=== PATIENT | male | born 1995 | race Caucasian/White ===

== ENCOUNTER 2020-08-22 02:12 | Emergency (ER) | payer SELFPAY ==
--- NOTE | 2020-08-22 02:18 | ECG_ITS ---
Test Reason : CHEST PAIN Blood Pressure : / mmHG Vent. Rate : 096 BPM Atrial Rate : 096 BPM P-R Int : 150 ms QRS Dur : 094 ms QT Int : 326 ms P-R-T Axes : 066 036 031 degrees QTc Int : 411 ms Normal sinus rhythm Early repolarization Normal ECG No previous ECGs available Referred By: Christiano Ashley Electronically Signed By:RIMA MONET MD
--- NOTE | 2020-08-22 02:40 | PC.NURSE ---
PATIENT RECEIVED EKG, PATIENT TAKING PICTURES OF STAFF AND HIMSELF DURING THE TEST ASK TO DELETE THE PHOTO. PATIENT STATED HE DID. SECURITY MADE AWARE WELL. VERBALIZED MULTIPLE TIMES TO PATIENT ABOUT PICTURES. PATIENT VERBALIZED UNDERSTANDING.
--- NOTE | 2020-08-22 02:59 | PC.NURSE ---
PATIENT CALLED FOR ROOM ASSIGNMENT. REFUSING TO BE SEEN I DON'T WANT TO WAIT ANY LONGER. SITTING OUTSIDE WAITING FOR HIS RIDE. OFFERED A ROOM ASSIGNMENT MULTIPLE TIMES. PATIENT NOT INTERESTED IN BEING DIRECTLY TAKEN TO A BED.
--- NOTE | 2020-08-23 03:18 | ED.CHESTPAIN ---
HPI - Chest Pain General Chief Complaint: Chest Pain Stated Complaint: Chest tightness PMFSH Social History Social History Advance Directives: No Course Course Course Narrative: This patient was not seen nor evaluated by me. Discharge Plan Discharge Patient Disposition: Left Without Being Seen Discharge Date/Time: 08/22/20 02:55
== END 2020-08-22 02:55 | disposition left against medical advice (07) ==
PROVIDERS: Emergency Provider Emergency Medicine
DX: R07.9 Chest pain, unspecified (principal)
CPT/HCPCS: 93005; 99281; 99283

== ENCOUNTER 2022-05-03 08:59 | Emergency (ER) | payer MEDICAID, SELFPAY ==
--- NOTE | ~2022-05-03 | XR_ITS ---
EXAMINATION: XR LUMBOSACRAL SPINE CLINICAL INFORMATION: Low back pain after lifting heavy object COMPARISON: None TECHNIQUE: Three views of the lumbosacral spine. FINDINGS: The vertebral bodies and posterior elements are normal. The disc spaces are preserved and the vertebral alignment is normal. The paraspinal soft tissues are normal. XR/XR lumbar spine 2-3V IMPRESSION: Unremarkable examination.
[2022-05-03 09:30] VITALS: BP 119/63; PULSE 70; RESP 16; TEMP 36.5; O2SAT 99; BMI 25.2
--- NOTE | 2022-05-03 10:33 | ED.BACK ---
HPI - Back Pain/Injury General Chief Complaint: Back Pain/Injury Stated Complaint: Back pain Time Seen by Provider: 05/03/22 09:36 Source: patient Mode of arrival: ambulatory Limitations: language barrier (Gabonese-speaking) History of Present Illness MD elicited complaint: back pain and back injury Onset (ago): day(s) (Past few days worse today) Timing: constant and progressively worsening Severity: mild Quality: aching Location: lumbar spine Radiation: none Exacerbating factors: sitting upright, lifting and other (Bending over) Relieving factors: none Context: while lifting, turning/twisting, bending and other (Patient reports he lives on the 4th 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 and he is always heavy lifting due to multiple stairs and just had a birthday green party of hers daughter and was heavy lifting as well at that green party) Associated symptoms: denies other symptoms Work related injury: No Related Data Previous Rx's Medication Instructions Recorded cyclobenzaprine 10 mg tablet 10 mg PO Q8H PRN Muscle spasm #14 05/03/22 tabs naproxen 500 mg tablet 500 mg PO BID PRN pain #14 tabs 05/03/22 Allergies Allergy/AdvReac Type Severity Reaction Status Date / Time No Known Allergies Allergy Verified 05/03/22 09:29 Review of Systems Review of Systems: Constitutional : No trauma, No Weight loss, No Fever, No Chills, ENT/Mouth : No Hearing loss, No Ear Pain, No Nasal Congestion, No Sinus Pain, No Hoarseness, No sore throat, No Rhinorrhea, No Swallowing Difficulty Cardiovascular : No Chest Pain, No SOB Respiratory : No Cough, No Dyspnea Gastrointestinal : No Nausea, No Vomiting, No Diarrhea, No abdominal Pain, No Hematochezia, No Melena Genitourinary : No Dysuria, No Urinary Frequency, No Hematuria, No Urinary or Bowel Incontinence/retention Musculoskeletal : + Back pain, No neck pain, No joint stiffness, No joint swelling Skin : No Skin Lesions, No rash or signs of infection Neuro : No Weakness, No radiation, No Numbness, No Paresthesias, No headache, no loss of bowel or bladder incontinence, no saddle anesthesia Denies history of IV drug usage. Yes all other systems are reviewed and are negative PMFSH Past Medical History Attestation statement: The following information was validated with the patient. Source: old records reviewed and nursing notes reviewed Social History Social History Advance Directives: No Advance Directives Information Provided: No Physical Exam Vital Signs: Vital Signs: Last Vital Signs Temp 97.7 F 05/03/22 09:30 Pulse 70 05/03/22 09:30 Resp 16 05/03/22 09:30 BP 119/63 05/03/22 09:30 Pulse Ox 99 05/03/22 09:30 O2 Del Method 05/03/22 09:30 BMI result Body Mass Index 25.2 vital signs have been reviewed as normal and appeared to be correct. Blood pressure normal. Heart rate normal. Respiration rate normal. Temperature normal. Oxygen saturation normal. Appearance: Alert. Oriented X3. No acute distress. Head: Normal external exam. Normocephalic. Atraumatic. Eyes: PERRLA. EOMI. Conjunctiva and sclera normal. Eyelids normal. ENT: EAC normal. TM's Normal. Pharynx normal. Uvula midline. Moist mucous membranes. No trismus noted. No drooling noted. No muffled voice noted. Neck: Normal inspection. Neck supple. FROM. No adenopathy. Thyroid Normal. No meningeal signs. No neck mass noted. CVS: Normal heart rate and rhythm. Heart sound normal. No murmurs noted. Pulses normal throughout. Respiratory: No respiratory distress. Painless inspiration. Breath sounds normal. No wheezes/rales/rhonchi noted. Chest nontender. No accessory muscle usage noted or decreased air movement noted. Abdomen: Soft and nontender. Bowel sounds normal in all 4 quadrants. No distention noted. No organomegaly noted. No visible injury noted. Back: No CVA tenderness. Full range of motion noted. No obvious deformities, or edema. Mild para-spinal muscular tenderness from lumbar region to coccyx. Full ROM in back and lower extremities. 5/5 strength hip extension/flexion, abduction, adduction. Mild Lumbar pain with hip flexion against resistance. Straight leg raise test negative on right; Straight leg raise test negative on left; Reflexes normal ankle and knee bilaterally; EHL motor strength normal bilaterally. No rashes/lesion/induration/fluctuance or signs infection noted. Skin: Skin warm and dry. Normal skin color. Normal skin turgor. No rashes/lesions/lacerations noted. Extremities: No lower extremity edema. Extremities exhibit normal range of motion. Extremities nontender. Neuro: Oriented X 3. No motor deficit. No sensory deficit. Reflexes normal. Patient has a normal steady gait. Course Course Course Narrative: Pt c likely muscular pain, but could be herniated disc. Neuro exam shows no deficits. Not c/w AAA/epidural abscess/dissection.No high risk Hx (Incont, fever, immunosupp, recent surgery/LP, coag, signif trauma, wt loss, puls mass, hx/o Ca, TB, or IVDU) to warrant MRI/CT today. Not c/w Pyelo/UTI/kidney stone/spinal fx. Not cauda equina syndrome. Imaging not currently indicated although patient requesting x-ray of lumbar spine therefore will obtain x-ray if negative for any acute processes will DC c meds and f/u. Patient understands agrees with this plan. MDM - Back Pain/Injury Medical Records Attestation: I reviewed the patient's medical records. Imaging Data Lumbar spine x-ray: Attestation: I personally reviewed and interpreted this imaging study as follows: Radiologist's impression: FINDINGS: The vertebral bodies and posterior elements are normal. The disc spaces are preserved and the vertebral alignment is normal. The paraspinal soft tissues are normal. XR/XR lumbar spine 2-3V IMPRESSION: Unremarkable examination. Discharge Plan Discharge Clinical Impression: Strain of lumbar region Patient Disposition: Home, Self-Care Instructions: Low Back Strain (ED), Lower Back Exercises (ED) Prescriptions: New naproxen 500 mg tablet 500 mg PO BID PRN (Reason: pain) Qty: 14 0RF cyclobenzaprine 10 mg tablet 10 mg PO Q8H PRN (Reason: Muscle spasm) Qty: 14 0RF Referrals: Physician,Unknown J [Primary Care Provider] - 1 week (your pcp) Stand Alone Forms: Work/School Release Print Language: Gabonese
== END 2022-05-03 11:19 | disposition home or self-care (01) ==
PROVIDERS: Emergency Provider Emergency Medicine
DX: S39.012A Strain of muscle, fascia and tendon of lower back, initial encounter (principal); X50.0XXA Overexertion from strenuous movement or load, initial encounter; Y93.9 Activity, unspecified; Y92.9 Unspecified place or not applicable; Y99.9 Unspecified external cause status
CPT/HCPCS: 72100; 99283

== ENCOUNTER 2022-09-26 09:00 | Emergency (ER) | payer MEDICAID, SELFPAY ==
[2022-09-26 09:04] VITALS: BP 137/76; PULSE 91; RESP 16; TEMP 36.7; O2SAT 98; BMI 29.2
--- NOTE | 2022-09-26 09:11 | ED.GENADULT ---
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 Patient states that he would like some time off of work to rest his back. Patient denies any dizziness, lightheadedness, abdominal pain, nausea, vomiting, fever, chills, blurry vision, double vision, loss of vision, chest pain, difficulty breathing, shortness of breath, night sweats, pain with urination, increased urinary frequency, increased urinary urgency, blood in his urine or stool, syncope or a near syncopal episode, recent trauma or falls, bowel incontinence, bladder incontinence, bowel retention, bladder retention, or any other complaints at this time. Onset (ago): day(s) Location: back Radiation: non-radiation Severity: mild Severity scale (1-10): 3 Quality: dull Pain Consistency: intermittent Relieving factors: none Exacerbating factors: none Associated symptoms: denies other symptoms Treatments prior to arrival: none Related Data Previous Rx's Medication Instructions Recorded cyclobenzaprine 10 mg tablet 10 mg PO Q8H PRN Muscle spasm #14 05/03/22 tabs naproxen 500 mg tablet 500 mg PO BID PRN pain #14 tabs 05/03/22 Allergies Allergy/AdvReac Type Severity Reaction Status Date / Time No Known Allergies Allergy Verified 05/03/22 09:29 Review of Systems Constitutional: Constitutional: Reports no additional constitutional complaints, Denies chills, Denies fever(s) and Denies night sweats Eyes: Eyes: Reports no additional eye complaints, Denies blurry vision, Denies change in vision, Denies diplopia, Denies eye discharge, Denies loss of vision and Denies eye pain ENT: Denies dizziness Cardiovascular: Cardiovascular: Reports no additional cardiovascular complaints, Denies chest pain, Denies lightheadedness, Denies Loss of Consciousness and Denies dyspnea Respiratory: Respiratory: Reports no additional respiratory complaints and Denies dyspnea Gastrointestinal: Gastrointestinal: Reports no additional gastrointestinal complaints, Denies abdominal pain, Denies melena, Denies hematochezia, Denies change in bowel habits and Denies change in stool character Genitourinary: Genitourinary: Reports no additional male genitourinary complaints, Denies hematuria, Denies oliguria, Denies difficulty urinating, Denies dysuria, Denies urinary frequency, Denies urinary hesitancy, Denies urinary incontinence and Denies urinary urgency Musculoskeletal: Musculoskeletal: Reports no additional musculoskeletal complaints, Reports back pain, Denies numbness and Denies tingling Neurologic: Denies dizziness, Denies loss of vision, Denies numbness and Denies tingling Psychiatric: Psychiatric: Reports no additional psychiatric complaints Endocrine: Endocrine: Reports no additional endocrine complaints Hematologic/Lymphatic: Hematologic/Lymphatic: Reports no additional hematologic/lymphatic complaints Allergic/Immunologic: Allergic/Immunologic: Reports no additional allergic/immunologic complaints [facility] Past Medical History Attestation statement: The following information was validated with the patient. Source: old records reviewed Social History Social History Advance Directives: No Advance Directives Information Provided: No Physical Exam ED Vital Signs: Vital Signs - 24 hr 09/26/22 09:04 Temperature 98.1 F Pulse Rate 91 Respiratory Rate 16 Blood Pressure 137/76 Pulse Oximetry 98 Oxygen Delivery Method Room Air BMI result Body Mass Index 29.2 Const General: cooperative, no acute distress, alert and awake Nutritional Appearance: well nourished Orientation/consciousness: patient oriented x3 Limitations: no limitations [facility] Head: Yes normal to inspection and Yes atraumatic Ears: hearing grossly normal bilaterally and external ears normal General nose exam: Normal external nose present, no nasal discharge noted and no epistaxis Face and sinus: Yes normal facial exam, No abrasion and No laceration Mouth: Normal oral and palatal mucosa present, no drooling and no muffled voice Eyes General: appearance normal, both eyes and all related structures Periorbital: periorbital findings normal Eyelids: Yes eyelids normal Conjunctivae: conjunctivae normal Pupils: Equal, round and reactive pupils present EOM: EOMs intact bilaterally Neck Neck: Yes normal visual inspection, Yes full ROM and Yes no lymphadenopathy Chest Chest palpation & inspection: normal inspection of the chest Resp Effort & Inspection: normal respiratory effort and able to speak in complete sentences Auscultation: clear to auscultation bilaterally Cardio Rate: regular rate Rhythm: regular rhythm GI Inspection: Yes normal to inspection General: Yes no CVA tenderness Back/Spine/Pelvis Back: no CVA tenderness Cervical Spine: normal cervical lordosis and cervical ROM normal Thoracic/Lumbar Spine: thoracic and lumbar spine normal to inspection and thoraco-lumbar ROM normal Pelvis: no pain with anterior-posterior compression Neuro General: patient oriented x3 and moves all extremities Cranial nerves: Yes Equal, round and reactive pupils present Cognition (Neuro): normal cognition Motor exam (neuro): 5/5 motor strength present throughout Sensory Exam: Normal double simultaneous stimulation for sensation Coordination: [id number] test normal Extrem General: Yes normal to inspection, Yes full ROM and Yes capillary refill normal Psych Appearance: grossly normal Mental Status: mental status grossly normal Affect: normal affect Attitude: cooperative Thought process: Normal thought process present Thought content: Normal thought content present Insight: Good insight present (Psych) Medical Decision Making MDM Narrative Medical decision making narrative: Patient is a 27 year old assigned male at with no reported medical history presenting to the emergency department today with back pain. Patient's physical exam was unremarkable. I explained my physical exam findings to the patient. I answered all questions asked by the patient. Patient received IM Toradol and PO Flexeril which he stated helped his symptoms significantly. I stressed the importance of the patient taking his medication as prescribed. I stressed the importance of the patient following up with his primary care provider. I stressed the importance of the patient returning to the emergency department immediately if his symptoms were to worsen or if he] were to develop any dizziness, shortness of breath, difficulty breathing, chest pain, blurry vision, loss of vision, nausea, vomiting, abdominal pain, fever, chills, back pain, or any other complaints. Patient verbalized agreement and understanding with this treatment plan and discharge. Medical Records Medical records reviewed: Yes I reviewed the patient's medical records. Discharge Plan Discharge Clinical Impression: Lumbar radiculopathy Patient Disposition: Home, Self-Care Instructions: Back Pain (ED) Additional Instructions: Follow up with your primary care provider. Return to the emergency department immediately if your symptoms worsen or if you develop any dizziness, shortness of breath, difficulty breathing, chest pain, blurry vision, loss of vision, nausea, vomiting, abdominal pain, fever, chills, back pain, or any other complaints. Mitchell un seguimiento con oliver proveedor de atenci?n primaria. Regrese al departamento de emergencias de inmediato si russ s?ntomas empeoran o si presenta mareos, falta de aire, dificultad para respirar, dolor de pecho, visi?n borrosa, p?rdida de la visi?n, n?useas, v?mitos, dolor abdominal, fiebre, escalofr?os, dolor de espalda o cualquier otras quejas. Prescriptions: No Action naproxen 500 mg tablet 500 mg PO BID PRN (Reason: pain) Qty: 14 0RF cyclobenzaprine 10 mg tablet 10 mg PO Q8H PRN (Reason: Muscle spasm) Qty: 14 0RF Referrals: [facility] [Provider Group] (Call to establish and follow up with a primary care provider. If you already have a primary care provider, please follow up with them. Llame para establecer y hacer un seguimiento con un proveedor de atenci?n primaria. Si ya tiene un proveedor de atenci?n primaria, mitchell un seguimiento con ?l.) [facility] [Provider Group] (Call to establish and follow up with a primary care provider. If you already have a primary care provider, please follow up with them. Llame para establecer y hacer un seguimiento con un proveedor de atenci?n primaria. Si ya tiene un proveedor de atenci?n primaria, mitchell un seguimiento con ?l. Llame para establecer y hacer un seguimiento con un proveedor de atenci?n primaria. Si ya tiene un proveedor de atenci?n primaria, mitchell un seguimiento con ?l.) [facility] Primary [facility] [Provider Group] (Call to establish and follow up with a primary care provider. If you already have a primary care provider, please follow up with them. Llame para establecer y hacer un seguimiento con un proveedor de atenci?n primaria. Si ya tiene un proveedor de atenci?n primaria, mitchell un seguimiento con ?l.) Stand Alone Forms: Work/School Release Interventions: ED Discharge Assessment Last Done: 09/26/22 09:40 Discharge Date/Time: 09/26/22 09:41 Print Language: Yemeni
--- OUTSIDE RECORDS SUMMARY | 2022-09-26 09:28 | XMS_ITS ---
:1995 Author Organization [facility] - Patient Walk-In Cente r Address [address] [place] [id number] Care Team Providers Name Role Phone Mulu Ramirez Unavailable Unavailable PROBLEMS Type Condition ICD9-CM Code IIM62-VG Code Onset Condition SNO MED Code Dates Status Problem Insomnia, G47.00 Active 908893225 unspecified type ALLERGIES No Known Allergies ENCOUNTERS Encounter Location Date Diagnosis [facility] - Patient Walk-In [address] [place] [address], Oct, [place] [address] pain without sci atica M54.[address], Dec, [place] [address], Jan, Insomnia, unspecified [place] type G47.[address], Dec, Encounter for preventive [place] health examinati on Z00.00 ; Insomnia, unsp ecified type G47.00 ; Ra sh R21 ; Screening choles terol level Z13.220 an d Screening for di abetes mellitus Z13.1 [facility] [address] [place] [address], Dec, [place] [address] [facility] - [address], [place] [address] IMMUNIZATIONS No Known Immunizations SOCIAL HISTORY Qualifiers Date Never Smoker REASON FOR REFERRAL FUNCTIONAL STATUS PLAN OF CARE Activity Details Follow Up prn Reason: VITAL SIGNS Height 5 ft 11 in in 2019-11-05 Height 5 ft 11 in in 2018-01-29 Height 5 ft 11 in in 2018-01-01 Weight 164 lbs 2019-11-05 Weight 176.8 lbs 2018-01-29 Weight 172.8 lbs 2018-01-01 BMI 22.87 kg/m2 2019-11-05 BMI 24.66 kg/m2 2018-01-29 BMI 24.10 kg/m2 2018-01-01 Temperature 98.1 degrees Fahrenheit 2019-11-05 Temperature 98.2 degrees Fahrenheit 2018-01-29 Temperature 98.3 degrees Fahrenheit 2018-01-01 Heart Rate 103 /min 2019-11-05 Heart Rate 75 /min 2018-01-29 Heart Rate 83 /min 2018-01-01 Blood pressure systolic 126 mm Hg 2019-11-05 Blood pressure diastolic 76 mm Hg 2019-11-05 MEDICATIONS Medication Instructions Dosage Frequency Start End Duration Statu s Date Date ibuprofen 600 mg orally every 6 1 tab(s) 6h 10 day( s) Active hours hydrocortisone applied 1 scottie 8h Dec, 14 day(s) Active topical 1% topically 3 2018 times a day Melatonin 5 mg orally once a 1 cap(s) Dec, day(s) Active day (at bedtime) 2017 PROCEDURES Procedure Date Ordered Result Body Site (07028) ESTABLISHED PATIENT LEVEL 3 Nov 05, 2019 ([id number]) ESTABLISHED PATIENT LEVEL 3 January 29, 2018 ([id number]) ESTABLISHED PATIENT LEVEL 3 Jan 01, 2018 RESULTS Name Result Date Reference Range Glomerular Filtration Rate (GFR) 2018-01-04 Estimated Afn Amer Glomerular Filtration Rate >90 Comprehensive Metabolic Panel-[facility] 2018-01-04 BUN 12 7-18 Creatinine 0.906 0.550-1.300 Sodium Lvl 138 136-145 Potassium Lvl 5.0 3.6-5.2 Chloride 103 98-110 CO2 29 21-32 Anion Gap 6 3-11 Total Protein 8.4 6.0-8.0 Albumin Lvl 4.2 3.5-5.0 Calcium Lvl 9.3 8.5-10.1 Glucose Lvl 86 65-110 Bilirubin Total 0.4 0.2-1.2 Alkaline Phosphatase 71 45-117 AST 27 6-40 ALT 72 6-78 GC-Chlamydia (Sexually Berrios Dis 2018-01-04 (Amp. DNA Probe)-[facility] Chlamydia/GC Specimen Type Urine Chlamydia/GC Specimen Type Urine Chlamydia/GC Specimen Type Urine C Trachomatis DNA Not Detected Not Detected C Trachomatis DNA Not Detected Not Detected N. gonorrhoeae DNA Not Detected Not Detected N. gonorrhoeae DNA Not Detected Not Detected Hepatitis C Antibody-[facility] 2018-01-04 Hep C Ab Non Reactive Lipid Panel-[facility] 2018-01-04 Chol 160 140-200 HDL 56 41-60 LDL 90 0-129 Trig 70 0-149 RPR (Rapid Plasma Reagin) Test-[facility] 2018-01-04 RPR Qual Non-Reactive Non-Reactive Hemoglobin E8V-CMF (preferred order) 2018-01-04 Hemoglobin A1c 4.8 <=5.6 Est Average Glucose (eAG) 91 HIV 1/2 Ag/Ab Combo (Preferred) 2018-01-04 HIV-1/HIV-2 Ag/Ab Combo Screen Screen Nonreactive Screen Nonreactive REASON FOR VISIT backpain hurt himself at work yesterday unable to work today due to pain needs a work note, Back pain, ECC-Established eye exam, Adult, CPE, Cancelled - Voice Reminder Cancellation, Pt is a 23 y.o malehere for F/UP-INSOMNIA.LCorpkassandra/LEVAR, f/u insomnia, Cancelled - Inconvenient Time, Pt 22 yo M here for CPE. LEVAR Spar[place], needs a new pt appt Insurance Providers [facility] Health Member Patient Patient Patient Patient Patient Subscriber Subscriber Subscriber Group Insurance Plan Plan Plan Plan ID Relationship Address Phone Name Date of ID Name Date of No Type Insurance Insurance Insurance Coverage to Subscriber Address Phone Name Dates [facility] [phone] [facility] self [place] [id number] CARE PLAN [id number] CARE PLAN [place] [facility] [phone] EYE MED [address] EYE MED self [place] [id number] [facility] [id number] [facility] [phone] [facility] [phone] [facility] self [place] [id number] [facility] [address] [place] [id number] [facility] [phone] [place] self [place] 315 [id number] [place] [phone] PENDING [address] PENDING self [place] [id number] [facility] [id number] [address] self [place] [id number] [employer] [address] GERMAINE ROUTINE [facility] [id number]
== END 2022-09-26 09:41 | disposition home or self-care (01) ==
PROVIDERS: Emergency Provider Emergency Medicine
DX: M54.16 Radiculopathy, lumbar region (principal)
CPT/HCPCS: 99282

== ENCOUNTER 2022-11-14 08:59 | Emergency (ER) | payer MEDICAID, SELFPAY ==
[2022-11-14 09:17] VITALS: BP 128/70; PULSE 97; RESP 17; TEMP 36.6; O2SAT 99; BMI 25.8
[2022-11-14 09:36] LABS: IDNOW Serial# 6674DD1D
[2022-11-14 09:37] LABS: Strep A Nucleic Acid Negative (Negative)
--- NOTE | 2022-11-14 09:40 | ED.GENADULT ---
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 Patient states that over the last 3 days he has had a sore throat. Patient denies any dizziness, lightheadedness, abdominal pain, nausea, vomiting, fever, chills, blurry vision, double vision, loss of vision, chest pain, difficulty breathing, shortness of breath, back pain, night sweats, pain with urination, increased urinary frequency, increased urinary urgency, blood in his urine or stool, syncope or a near syncopal episode, recent trauma or falls, bowel incontinence, bladder incontinence, bowel retention, bladder retention, or any other complaints at this time. Onset (ago): day(s) (3) Radiation: non-radiation Severity: mild Severity scale (1-10): 3 Quality: aching and dull Pain Consistency: constant Relieving factors: none Exacerbating factors: none Associated symptoms: denies other symptoms Treatments prior to arrival: none Related Data Previous Rx's Medication Instructions Recorded cyclobenzaprine 10 mg tablet 10 mg PO Q8H PRN Muscle spasm #14 05/03/22 tabs naproxen 500 mg tablet 500 mg PO BID PRN pain #14 tabs 05/03/22 lidocaine HCl 2 % mucosal solution 1.2 ml mucous membrane BID #100 mL 11/14/22 (Lidocaine Viscous) Allergies Allergy/AdvReac Type Severity Reaction Status Date / Time No Known Allergies Allergy Verified 05/03/22 09:29 Review of Systems Constitutional: Constitutional: Reports no additional constitutional complaints, Denies chills, Denies fever(s) and Denies night sweats Eyes: Eyes: Reports no additional eye complaints, Denies blurry vision, Denies change in vision, Denies diplopia, Denies eye discharge, Denies loss of vision and Denies eye pain ENT: Denies dizziness and Reports sore throat Cardiovascular: Cardiovascular: Reports no additional cardiovascular complaints, Denies chest pain, Denies lightheadedness, Denies Loss of Consciousness and Denies dyspnea Respiratory: Respiratory: Reports no additional respiratory complaints and Denies dyspnea Gastrointestinal: Gastrointestinal: Reports no additional gastrointestinal complaints, Denies abdominal pain, Denies melena, Denies hematochezia, Denies change in bowel habits and Denies change in stool character Genitourinary: Genitourinary: Reports no additional male genitourinary complaints, Denies hematuria, Denies oliguria, Denies difficulty urinating, Denies dysuria, Denies urinary frequency, Denies urinary hesitancy, Denies urinary incontinence and Denies urinary urgency Musculoskeletal: Musculoskeletal: Reports no additional musculoskeletal complaints, Denies numbness and Denies tingling Neurologic: Denies dizziness, Denies loss of vision, Denies numbness and Denies tingling Psychiatric: Psychiatric: Reports no additional psychiatric complaints Endocrine: Endocrine: Reports no additional endocrine complaints Hematologic/Lymphatic: Hematologic/Lymphatic: Reports no additional hematologic/lymphatic complaints Allergic/Immunologic: Allergic/Immunologic: Reports no additional allergic/immunologic complaints [facility] Past Medical History Attestation statement: The following information was validated with the patient. Source: old records reviewed and nursing notes reviewed Social History Social History Advance Directives: No Advance Directives Information Provided: No Physical Exam ED Vital Signs: Vital Signs - 24 hr 11/14/22 09:17 Temperature 98 F Pulse Rate 97 Respiratory Rate 17 Blood Pressure 128/70 Pulse Oximetry 99 Oxygen Delivery Method Room Air BMI result Body Mass Index 25.8 Const General: cooperative, no acute distress, alert and awake Nutritional Appearance: well nourished Orientation/consciousness: patient oriented x3 Limitations: no limitations [facility] Head: Yes normal to inspection and Yes atraumatic Ears: hearing grossly normal bilaterally and external ears normal General nose exam: Normal external nose present, no nasal discharge noted and no epistaxis Face and sinus: Yes normal facial exam, No abrasion and No laceration Mouth: Normal oral and palatal mucosa present, no drooling and no muffled voice Throat: Yes other (mild erythema of the posterior pharynx) Eyes General: appearance normal, both eyes and all related structures Periorbital: periorbital findings normal Eyelids: Yes eyelids normal Conjunctivae: conjunctivae normal Pupils: Equal, round and reactive pupils present EOM: EOMs intact bilaterally Neck Neck: Yes normal visual inspection, Yes full ROM and Yes no lymphadenopathy Chest Chest palpation & inspection: normal inspection of the chest Resp Effort & Inspection: normal respiratory effort and able to speak in complete sentences Auscultation: clear to auscultation bilaterally Cardio Rate: regular rate Rhythm: regular rhythm GI Inspection: Yes normal to inspection Neuro General: patient oriented x3 and moves all extremities Cranial nerves: Yes Equal, round and reactive pupils present Cognition (Neuro): normal cognition Motor exam (neuro): 5/5 motor strength present throughout Sensory Exam: Normal double simultaneous stimulation for sensation Coordination: [id number] test normal Extrem General: Yes normal to inspection, Yes full ROM and Yes capillary refill normal Psych Appearance: grossly normal Mental Status: mental status grossly normal Affect: normal affect Attitude: cooperative Thought process: Normal thought process present Thought content: Normal thought content present Insight: Good insight present (Psych) Medical Decision Making Medical Decision Making [facility] Narrative: Patient is a 27 year old assigned male at with no reported medical history presenting to the emergency department today with a sore throat. Patient's physical exam showed mild erythema to his posterior oropharynx but was otherwise unremarkable. Patient's COVID/RSV/Influenza and strep swabs were all negative. I explained my physical exam findings as well as all test results to the patient. I answered all questions asked by the patient. I stressed the importance of the patient taking his medication as prescribed. I stressed the importance of the patient following up with his primary care provider. I stressed the importance of the patient returning to the emergency department immediately if his symptoms were to worsen or if he were to develop any dizziness, shortness of breath, difficulty breathing, chest pain, blurry vision, loss of vision, nausea, vomiting, abdominal pain, fever, chills, back pain, or any other complaints. Patient verbalized agreement and understanding with this treatment plan and discharge. Differential Diagnosis Differential Diagnoses: The differential diagnosis associated with the presentation includes pharyngitis, viral illness, URI Lab Data [facility] Lab Attestation statement: I reviewed the patient's lab results. Labs: Lab Results 11/14/22 11/14/22 Range/Units 09:22 09:22 Influenza Type A (PCR) NEGATIVE (Negative) Influenza Type B (PCR) NEGATIVE (Negative) RSV RNA Qual (PCR) NEGATIVE (Negative) SARS-CoV-2 RNA (RT-PCR) NEGATIVE (Negative) S. pyogenes GrpA STEPHANIE Negative (Negative) Discharge Plan Discharge Clinical Impression: Pharyngitis Patient Disposition: Home, Self-Care Instructions: Pharyngitis (ED) Additional Instructions: Follow up with your primary care provider. Return to the emergency department immediately if your symptoms worsen or if you develop any dizziness, shortness of breath, difficulty breathing, chest pain, blurry vision, loss of vision, nausea, vomiting, abdominal pain, fever, chills, back pain, or any other complaints. Mitchell un seguimiento con oliver proveedor de atenci?n primaria. Regrese a la mick de emergencias de inmediato si russ s?ntomas empeoran o si presenta mareos, dificultad para respirar, dolor de pecho, visi?n borrosa, p?rdida de la visi?n, n?useas, v?mitos, dolor abdominal, fiebre, escalofr?os, dolor de espalda o cualquier otras quejas. Prescriptions: New lidocaine HCl [Lidocaine Viscous] 2 % solution 1.2 ml mucous membrane BID Qty: 100 0RF No Action naproxen 500 mg tablet 500 mg PO BID PRN (Reason: pain) Qty: 14 0RF cyclobenzaprine 10 mg tablet 10 mg PO Q8H PRN (Reason: Muscle spasm) Qty: 14 0RF Referrals: [facility] [Primary Care Provider] - Stand Alone Forms: Work/School Release Print Language: Gambian
--- OUTSIDE RECORDS SUMMARY | 2022-11-14 09:43 | XMS_ITS ---
:1995 Author Organization [facility] - Patient Walk-In Cente r Address [address] [place] [phone] Care Team Providers Name Role Phone Mulu Ramirez Unavailable Unavailable PROBLEMS Type Condition ICD9-CM Code KBQ69-AA Code Onset Condition SNO MED Code Dates Status Problem Insomnia, G47.00 Active 328380544 unspecified type ALLERGIES No Known Allergies ENCOUNTERS Encounter Location Date Diagnosis [facility] - Patient Walk-In [address] [place] [address], Oct, [place] [address] pain without sci atica M54.[address], Dec, [place] [address], Jan, Insomnia, unspecified [place] type G47.[address], Dec, Encounter for preventive [place] health examinati on Z00.00 ; Insomnia, unsp ecified type G47.00 ; Ra sh R21 ; Screening choles terol level Z13.220 an d Screening for di abetes mellitus Z13.1 [facility] [address] [place] [address], Dec, [place] [address] [facility] - [address], [place] [address] IMMUNIZATIONS No Known Immunizations SOCIAL HISTORY Qualifiers [...] mg orally once a 1 cap(s) Dec, 30 day(s) Active day (at bedtime) 2018 PROCEDURES Procedure Date Ordered Result Body Site (25359) ESTABLISHED PATIENT LEVEL 3 January 29, 2018 (41213) ESTABLISHED PATIENT LEVEL 3 Jan 01, 2018 (37383) ESTABLISHED PATIENT LEVEL 3 Nov 05, 2019 RESULTS Name Result Date Reference Range Glomerular Filtration Rate (GFR) 2018-01-04 Estimated Afn Amer Glomerular Filtration Rate >90 Comprehensive Metabolic Panel-[facility] 2018-01-04 BUN 12 7-18 Creatinine 0.906 0.550-1.300 Sodium Lvl 138 136-145 Potassium Lvl 5.0 3.6-5.2 Chloride 103 98-110 CO2 29 21-32 Anion Gap 6 3-11 Total Protein 8.4 6.0-8.0 Albumin Lvl 4.2 3.5-5.0 Calcium Lvl 9.3 8.5-10.1 Glucose Lvl 86 65-110 Bilirubin Total 0.4 0.2-1.2 Alkaline Phosphatase 71 45-117 AST 27 6-40 ALT 72 6-78 GC-Chlamydia (Sexually Berrios Dis 2018-01-04 (Amp. DNA Probe)-[facility] Chlamydia/GC Specimen Type Urine Chlamydia/GC Specimen Type Urine Chlamydia/GC Specimen Type Urine C Trachomatis DNA Not Detected Not Detected C Trachomatis DNA Not Detected Not Detected N. gonorrhoeae DNA Not Detected Not Detected N. gonorrhoeae DNA Not Detected Not Detected Hepatitis C Antibody-[facility] 2018-01-04 Hep C Ab Non Reactive Lipid Panel-[facility] 2018-01-04 Chol 160 140-200 HDL 56 41-60 LDL 90 0-129 Trig 70 0-149 RPR (Rapid Plasma Reagin) Test-[facility] 2018-01-04 RPR Qual Non-Reactive Non-Reactive Hemoglobin T4A-FXA (preferred order) 2018-01-04 Hemoglobin A1c 4.8 <=5.6 [...] Pt is a 23 y.o malehere for F/UP-INSOMNIA.LCorprafaeln/MA, f/u insomnia, Cancelled - Inconvenient Time, Pt 22 yo M here for CPE. LEVAR Sparks, needs a new pt appt Insurance Providers [facility] Member Patient Patient Patient Patient Patient Subscriber Subscriber Subscriber Group Insurance Plan Plan Plan Plan ID Relationship Address Phone Name Date of ID Name Date of No Type Insurance Insurance Insurance Coverage to Subscriber Address Phone Name Dates [facility] [phone] [facility] self [place] [id number] [facility] [id number] [facility] [address] [employer] [phone] [employer] self [place] [id number] CARE PLAN [id number] CARE PLAN [place] [facility] [place] [id number] [place] [phone] [place] [id number] [id number] [place] [address] [facility] [address] [facility] [address] [facility] [facility] self [place] [id number] [place] [facility] ROUTINE [address] [place] ROUTINE [facility] [phone] PENDING [address] PENDING self [place] 1995 INSURANCE [facility] [id number] [address] EYE MED self [place] 1995 [id number] [place] [address] [facility] [address]
[2022-11-14 10:04] LABS: Influenza A PCR NEGATIVE (Negative); Influenza B PCR NEGATIVE (Negative); Resp Syncy Virus RNA Qual PCR NEGATIVE (Negative); SARS COV2 PCR INHOUSE NEGATIVE (Negative)
== END 2022-11-14 10:55 | disposition home or self-care (01) ==
PROVIDERS: Emergency Provider Student in an Organized Health Care Education/Training Program
DX: J02.9 Acute pharyngitis, unspecified (principal); Z20.822 Contact with and (suspected) exposure to COVID-19; Z20.828 Contact with and (suspected) exposure to other viral communicable diseases
CPT/HCPCS: 0241U; 87651; 99282; 99283

== ENCOUNTER 2022-11-15 19:04 | Emergency (ER) | payer MEDICAID, SELFPAY ==
[2022-11-15 19:18] VITALS: BP 125/64; PULSE 89; RESP 18; TEMP 37.1; O2SAT 99; BMI 25.8
--- NOTE | 2022-11-15 19:18 | ED.URI ---
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 He was seen here yesterday, where he tested negative for strep, COVID, flu, RSV. He was discharged home with oral liquid lidocaine as needed for sore throat. He states the pain has been making it difficult for him to tolerate solids. He can drinks liquids but with discomfort. No fevers. No neck swelling but he feels a fullness when he swallows. No known sick contacts. No other swollen glands. MD elicited complaint: sore throat Onset (ago): day(s) (4) Consistency: constant and progressively worsening Severity: severe Exacerbating factors: swallowing Relieving factors: nothing Associated symptoms: sore throat Treatments prior to arrival: none Related Data Previous Rx's Medication Instructions Recorded cyclobenzaprine 10 mg tablet 10 mg PO Q8H PRN Muscle spasm #14 05/03/22 tabs naproxen 500 mg tablet 500 mg PO BID PRN pain #14 tabs 05/03/22 lidocaine HCl 2 % mucosal solution 1.2 ml mucous membrane BID #100 mL 11/14/22 (Lidocaine Viscous) amoxicillin 875 mg-potassium 1 tab PO Q12H #20 tabs 11/15/22 clavulanate 125 mg tablet ibuprofen 600 mg tablet 600 mg PO Q8H PRN fever or pain 11/15/22 #14 tabs Allergies Allergy/AdvReac Type Severity Reaction Status Date / Time No Known Allergies Allergy Verified 05/03/22 09:29 Review of Systems Review of Systems: Yes all other systems are reviewed and are negative [facility] Social History Social History Advance Directives: No Advance Directives Information Provided: No Physical Exam Vital Signs: Appearance: Alert. Oriented X3. No acute distress. HEENT: Normal external and inspection. Pharynx with moist mucous membranes. Moderate to severe posterior pharyngeal erythema, uvula midline, mild bilateral tonsillar swelling without exudate. Neck: Normal inspection, trachea midline, moderate palpable submandibular lymphadenopathy, no nuchal rigidity CVS: Normal heart rate and rhythm. Pulses normal. Respiratory: No respiratory distress. Skin: Skin warm and dry. Normal skin color. Normal skin turgor. No rashes. Extremities: Normal inspection x4 Neuro: Oriented X 3. Nonfocal Course Course Course Narrative: 27 yo male presenting to the ER with worsening sore throat. Exam with moderate to severe posterior pharyngeal erythema without notable exudate. No evidence of peritonsillar abscess. Voice is normal, handling secretions normally. Nontoxic appearing. Will empirically treat. Stable for discharge home Medical Decision Making Medical Decision Making MDM Narrative: 27-year-old male presenting with worsening sore throat for the last 4 days. Difficult to tolerate p.o. although his voice is normal, handling secretions normally. Could have been a false negative for his strep for COVID swabs yesterday. Will empirically treat. No evidence of retropharyngeal or peritonsillar abscess. Doubt mononucleosis. Differential Diagnosis Differential Diagnoses: The differential diagnosis associated with the presentation includes Bacterial pharyngitis, viral pharyngitis, mononucleosis, less likely retropharyngeal abscess or peritonsillar abscess External Record Review External record reviewed: Outpatient record Swabs from yesterday were reviewed Tests considered The following testing was considered but not selected: CT of the neck was considered but not indicated given his physical exam findings Prescription Management I considered prescription management with: Pain Medication and Antibiotic Critical Care Time Critical Care Time Critical Care Time: No Discharge Plan Discharge Clinical Impression: Acute pharyngitis Patient Disposition: Home, Self-Care Instructions: Pharyngitis (ED) Additional Instructions: Take the prescribed antibiotic as directed. Complete the entire course. Take the prescribed anti-inflammatory pain medication every 8 hours, take with food. Rest and stay hydrated. Gargle with warm salt water 3-4 times per day. Recommend [id number] Chloraseptic spray and Cepacol lozenges, found in the cold and flu I will. Follow-up with your doctor. If you develop new or worsening symptoms call 911 or come back to the ER for further evaluation. [place] el antibi?bret recetado seg?n las indicaciones. Completa todo el curso. [place] el analg?sico antiinflamatorio recetado cada 8 horas, t?cisneros con alimentos. Descansa y mantente hidratado. Mitchell g?rgaras con agua tibia con duran 3-4 veces al d?a. Recomiende el spray Chloraseptic de venta nicolas y las pastillas Cepacol, que se encuentran en el resfriado y la gripe. Seguimiento con oliver m?dico. Si desarrolla s?ntomas nuevos o que empeoran, llame al 911 o regrese a la mick de emergencias para rudy evaluaci?n adicional. Prescriptions: New amoxicillin-pot clavulanate 875-125 mg tablet 1 tab PO Q12H Qty: 20 0RF ibuprofen 600 mg tablet 600 mg PO Q8H PRN (Reason: fever or pain) Qty: 14 0RF No Action lidocaine HCl [Lidocaine Viscous] 2 % solution 1.2 ml mucous membrane BID Qty: 100 0RF naproxen 500 mg tablet 500 mg PO BID PRN (Reason: pain) Qty: 14 0RF cyclobenzaprine 10 mg tablet 10 mg PO Q8H PRN (Reason: Muscle spasm) Qty: 14 0RF Stand Alone Forms: Work/School Release
--- OUTSIDE RECORDS SUMMARY | 2022-11-15 19:26 | XMS_ITS ---
:1995 Author Organization [facility] - Patient Walk-In Cente r Address [address] [place] [phone] Care Team Providers Name Role Phone Mulu Ramirez Unavailable Unavailable PROBLEMS Type Condition ICD9-CM Code UGW35-HM Code Onset Condition SNO MED Code Dates Status Problem Insomnia, G47.00 Active 650543289 unspecified type ALLERGIES No Known Allergies ENCOUNTERS Encounter Location Date Diagnosis [facility] - Patient Walk-In [address] [place] [address], Oct, [place] [address] pain without sci atica M54.[address], Dec, [place] [address], Jan, Insomnia, unspecified [place] type G47.[address], Dec, Encounter for preventive [place] health examinati on Z00.00 ; Insomnia, unsp ecified type G47.00 ; Ra sh R21 ; Screening choles terol level Z13.220 an d Screening for di abetes mellitus Z13.1 [facility] [address] [place] [address], Dec, [place] [address] [facility] - [address], [place] [address] IMMUNIZATIONS No Known Immunizations SOCIAL HISTORY Qualifiers [...] PROCEDURES Procedure Date Ordered Result Body Site (70227) ESTABLISHED PATIENT LEVEL 3 January 29, 2018 ([id number]) ESTABLISHED PATIENT LEVEL 3 Jan 01, 2018 ([id number]) ESTABLISHED PATIENT LEVEL 3 Nov 05, 2019 RESULTS Name Result Date Reference Range Glomerular Filtration Rate (GFR) 2018-01-04 Estimated Afn Amer Glomerular Filtration Rate >90 Comprehensive Metabolic Panel-[facility] 2018-01-04 BUN 12 7-18 Creatinine 0.906 0.550-1.300 Sodium Lvl 138 136-145 Potassium Lvl 5.0 3.6-5.2 Chloride 103 98-110 CO2 29 21-32 Anion Gap 6 3-11 Total Protein 8.4 6.0-8.0 Albumin Lvl 4.2 3.5-5.0 Calcium Lvl 9.3 8.5-10.1 Glucose Lvl 86 65-110 Bilirubin Total 0.4 0.2-1.2 Alkaline Phosphatase 71 45-117 AST 27 6-40 ALT 72 6-78 GC-Chlamydia (Sexually Berrios Dis 2018-01-04 (Amp. DNA Probe)-[facility] Chlamydia/GC Specimen Type Urine Chlamydia/GC Specimen Type Urine Chlamydia/GC Specimen Type Urine C Trachomatis DNA Not Detected Not Detected C Trachomatis DNA Not Detected Not Detected N. gonorrhoeae DNA Not Detected Not Detected N. gonorrhoeae DNA Not Detected Not Detected Hepatitis C Antibody-[facility] 2018-01-04 Hep C Ab Non Reactive Lipid Panel-[facility] 2018-01-04 Chol 160 140-200 HDL 56 41-60 LDL 90 0-129 Trig 70 0-149 RPR (Rapid Plasma Reagin) Test-[facility] 2018-01-04 RPR Qual Non-Reactive Non-Reactive Hemoglobin [id number]-RZM (preferred order) 2018-01-04 Hemoglobin A1c 4.8 <=5.6 [...] needs a new pt appt Insurance Providers [facility] Member Patient Patient Patient Patient Patient Subscriber Subscriber Subscriber Group Insurance Plan Plan Plan Plan ID Relationship Address Phone Name Date of ID Name Date of No Type Insurance Insurance Insurance Coverage to Subscriber Address Phone Name Dates [facility] [phone] [facility] self [place] [id number] [facility] [id number] [place] [facility] [address] [place] [phone] [place] self [place] [id number] CARE PLAN [id number] CARE [place] [facility] [place] [id number] [place] [phone] [place] [id number] [phone] [id number] [place] [address] [facility] [address] [address] [facility] [address] self [place] [id number] [place] [facility] [address]OUTINE [address] GERMAINE ROUTINE [facility] [address] EYE MED [address] EYE MED self [place] [id number] [place] [address] [facility] [place] [facility] [address] PENDING [address] PEND[address] self [place] [id number] INSURANCE [facility] [id number]
== END 2022-11-15 19:30 | disposition home or self-care (01) ==
PROVIDERS: Emergency Provider Emergency Medicine Emergency Medical Services
DX: J02.9 Acute pharyngitis, unspecified (principal)
CPT/HCPCS: 99282; 99283

== ENCOUNTER 2022-12-13 23:36 | Emergency (ER) | payer MEDICAID, SELFPAY ==
[2022-12-13 23:49] VITALS: BP 117/73; PULSE 93; RESP 20; TEMP 36.1; O2SAT 100; BMI 25.8
--- OUTSIDE RECORDS SUMMARY | 2022-12-14 00:10 | XMS_ITS ---
:1995 Author Organization [facility] Address [address] [place] [address] Care Team Providers Name Role Phone Tom Armstrong Primary Care Physician [phone] Encounter Date(s): 02/26/20 - 02/26/20 [facility] [address] [place] [address]- [place] Encounter Diagnosis Acute pharyngitis (Discharge Diagnosis) - 02/26/20 Upper respiratory infection NOS (Discharge Diagnosis) - 02/26/20 Discharge Disposition: Home or Self Care Attending Physician: Vy Heller NP Admitting Physician: Vy Heller NP Vital Signs Most recent to oldest [Reference Range]: 1 Temperature Oral [96.1-99.6 DegF] 98.5 DegF (02/26/20 8:18 PM) SpO2 [94-100 %] 100 % (02/26/20 8:18 PM) Respiratory Rate [12-24 br/min] 18 br/min (02/26/20 8:18 PM) Peripheral Pulse Rate [50-110 bpm] 96 bpm (02/26/20 8:18 PM) Blood Pressure [80-140/50-90 mmHg] 132/77 mmHg (02/26/20 8:18 PM) Weight 74.85 Kg (02/26/20 8:16 PM) Height 180 cm (02/26/20 8:16 PM) Body Mass Index 23.1 Kg/m2 (02/26/20 8:16 PM) Problem List No Known Problems Allergies, Adverse Reactions, Alerts No Known Allergies Medications No Known Medications Social History Social History Type Response Assessment and Plan Future Appointments??
--- OUTSIDE RECORDS SUMMARY | 2022-12-14 00:10 | XMS_ITS ---
:1995 Author Organization [facility] Address [address] [place] [address] Care Team Providers Name Role Phone Tom Armstrong Primary Care Physician [phone] Encounter Date(s): 10/08/19 - 10/08/19 [facility] [address] [place] [address]- Encounter Diagnosis Influenza like illness (Discharge Diagnosis) - 10/08/19 Nasal congestion (Discharge Diagnosis) - 10/08/19 Discharge Disposition: Home or Self Care Attending Physician: Darwin Rodríguez PA-C Admitting Physician: Darwin Rodríguez PA-C Vital Signs Most recent to oldest [Reference Range]: 1 Temperature Oral [96.1-99.6 DegF] 98.9 DegF (10/08/19 10:00 PM) SpO2 [94-100 %] 99 % (10/08/19 10:00 PM) Respiratory Rate [12-24 br/min] 18 br/min (10/08/19 10:00 PM) Peripheral Pulse Rate [50-110 bpm] 88 bpm (10/08/19 10:00 PM) Blood Pressure [80-140/50-90 mmHg] 108/57 mmHg (10/08/19 10:00 PM) Weight 65.7 Kg (10/08/19 7:00 PM) Height 177.8 cm (10/08/19 7:00 PM) Body Mass Index 20.78 Kg/m2 (10/08/19 7:00 PM) Problem List No Known Problems Allergies, Adverse Reactions, Alerts No Known Allergies Medications Flonase 50 mcg/inh nasal spray 2 spray(s), Nasal, Daily, in each nostril, # 1 EA, 0 Refill(s), Pharmacy: [facility] #[id number] Start Date: 10/08/19 Status: Orderedibuprofen 600 mg oral tablet 600 mg = 1 tab(s), PO, q6hr, PRN PRN fever/pain, with food or milk not to exceed 3200 mg/day, X 5 day(s), # 20 tab(s), 0 Refill(s), Pharmacy: [facility] #[id number] Start Date: 10/08/19 Stop Date: 10/13/19 Status: Orderedpseudoephedrine 120 mg oral tablet, extended release 120 mg = 1 tab(s), PO, q12hr, X 5 day(s), # 10 tab(s), 0 Refill(s), Pharmacy: [facility] #[id number] Start Date: 10/08/19 Stop Date: 10/13/19 Status: OrderedTylenol 500 mg oral tablet 1,000 mg = 2 tab(s), PO, QID, PRN PRN fever/pain, not to exceed 4000 mg/day, X 5 day(s), # 40 tab(s), 0 Refill(s), Pharmacy: [facility] #[id number] Start Date: 10/08/19 Stop Date: 10/13/19 Status: OrderedZofran 4 mg oral tablet 4 mg = 1 tab(s), PO, TID, PRN PRN Nausea, # 9 tab(s), 0 Refill(s), Pharmacy: [facility] #[id number] Start Date: 10/08/19 Stop Date: 10/11/19 Status: Ordered Social History Social History Type Response Assessment and Plan Future Appointments??
--- OUTSIDE RECORDS SUMMARY | 2022-12-14 00:10 | XMS_ITS ---
:1995 Author Organization [facility] - Patient [facility] r Address [address] [place] [address] Care Team Providers Name Role Phone Mulu Ramirez Unavailable Unavailable PROBLEMS Type Condition ICD9-CM Code ORP60-ZW Code Onset Condition SNO MED Code Dates Status Problem Insomnia, G47.00 Active [id number] unspecified type ALLERGIES No Known Allergies ENCOUNTERS Encounter Location Date Diagnosis [facility] - Patient Walk-In [address] [place] [address], Oct, [place] [address] pain without sci atica M54.[address], Dec, [place] [address], Jan, Insomnia, unspecified [place] type G47.[address], Dec, Encounter for preventive [place] health examinati on Z00.00 ; Insomnia, unsp ecified type G47.00 ; Ra sh R21 ; Screening choles terol level Z13.220 an d Screening for di abetes mellitus Z13.1 [facility] [address] [place] [address], Dec, [place] [address] [facility] - [address], [place] [address] IMMUNIZATIONS No Known Immunizations SOCIAL HISTORY Qualifiers [...] PROCEDURES Procedure Date Ordered Result Body Site (00239) ESTABLISHED PATIENT LEVEL 3 Nov 05, 2019 ([id number]) ESTABLISHED PATIENT LEVEL 3 January 29, 2018 (07398) ESTABLISHED PATIENT LEVEL 3 Jan 01, 2018 RESULTS Name Result Date Reference Range Glomerular Filtration Rate (GFR) 2018-01-04 Estimated Afn Amer Glomerular Filtration Rate >90 Comprehensive Metabolic Panel-[facility] 2018-01-04 BUN 12 7-18 Creatinine 0.906 0.550-1.300 Sodium Lvl 138 136-145 Potassium Lvl 5.0 3.6-5.2 Chloride 103 98-110 CO2 29 21-32 Anion Gap 6 3-11 Total Protein 8.4 6.0-8.0 Albumin Lvl 4.2 3.5-5.0 Calcium Lvl 9.3 8.5-10.1 Glucose Lvl 86 65-110 Bilirubin Total 0.4 0.2-1.2 Alkaline Phosphatase 71 45-117 AST 27 6-40 ALT 72 6-78 GC-Chlamydia (Sexually Berrios Dis 2018-01-04 (Amp. DNA Probe)-[facility] Chlamydia/GC Specimen Type Urine Chlamydia/GC Specimen Type Urine Chlamydia/GC Specimen Type Urine C Trachomatis DNA Not Detected Not Detected C Trachomatis DNA Not Detected Not Detected N. gonorrhoeae DNA Not Detected Not Detected N. gonorrhoeae DNA Not Detected Not Detected Hepatitis C Antibody-[facility] 2018-01-04 Hep C Ab Non Reactive Lipid Panel-[facility] 2018-01-04 Chol 160 140-200 HDL 56 41-60 LDL 90 0-129 Trig 70 0-149 RPR (Rapid Plasma Reagin) Test-[facility] 2018-01-04 RPR Qual Non-Reactive Non-Reactive Hemoglobin [id number] (preferred order) 2018-01-04 Hemoglobin A1c 4.8 <=5.6 [...] Pt is a 23 y.o malehere for F/UP-INSOMNIA.Iwona/LEVAR, f/u insomnia, Cancelled - Inconvenient Time, Pt 22 yo M here for CPE. LEVAR [place], needs a new pt appt Insurance Providers [facility] Health Member Patient Patient Patient Patient Patient Subscriber Subscriber Subscriber Group Insurance Plan Plan Plan Plan ID Relationship Address Phone Name Date of ID Name Date of No Type Insurance Insurance Insurance Coverage to Subscriber Address Phone Name Dates PENDING [address] PENDING self [place] [address] [facility] [id number] [address] [place] MED self [place] 1995 [id number] [place] [id number] [facility] [phone] [place] [address] self [place] [id number] [place] [facility] [address] [place] [facility] [address] [facility] [phone] [facility] self [place] [id number] [facility] [id number] [address] [place] [phone] [place] [id number] [place] [facility] [place] [address] [place] [phone] [place] self [place] [id number] CARE PLAN [id number] CARE PLAN [place] [facility] [address]
--- OUTSIDE RECORDS SUMMARY | 2022-12-14 00:10 | XMS_ITS | Continuity of Care Document ---
:1995 Author Organization [facility] Address [address] [place] [address]- Care Team Providers Name Role Phone Not on Staff, PCP Primary Care Physician Unavailable Encounter [facility] Date(s): 11/08/20 - 11/09/[address] [address]- Encounter Diagnosis Suspected COVID-19 virus infection (Final) - 11/09/20 COVID-19 virus detected (Final) - 11/09/20 Discharge Disposition: A-D/C Home Attending Physician: Brad Botello MD Admitting Physician: Brad Botello MD Referring Physician: Not on Staff, Referring MD Allergies, Adverse Reactions, Alerts Substance Reaction Severity Status NKA Active Vital Signs Most recent to oldest [Reference Range]: 1 2 Oxygen Saturation [94-100 %] 99 % 99 % (11/09/20 12:27 AM) (11/08/20 11:47 PM) Pulse Rate [55-90 bpm] 88 bpm 99 bpm (11/09/20 12:27 AM) *H* (11/08/20 11:47 PM) Blood Pressure [90-138/55-84 mm Hg] 122/82 mm Hg (11/09/20 12:27 AM) Respiratory Rate [16-30 br/min] 20 br/min 18 br/mi n (11/09/20 12:27 AM) (11/08/20 11:47 PM) Temperature [96.8-100.4 DegF] 98.4 DegF (11/09/20 12:27 AM) Mode of Delivery (Oxygen) Room air Room air (11/09/20 12:27 AM) (11/08/20 11:47 PM) Blood pressure sites Arm, right (11/09/20 12:27 AM) Temperature Route Oral (11/09/20 12:27 AM)
[2022-12-14 00:16] LABS: Hematocrit 42.6 % (42.0-52.0); Mean Corpuscular HGB Conc 32.9 g/dl (31.0-36.0); Mean Corpuscular Hemoglobin 28.1 pg (27.0-33.0); Mean Corpuscular Volume 85.5 fL (80.0-98.0); Mean Platelet Volume 10.1 fL (9.4-12.4); Platelet Count 255 X10*3/uL (160-400); Red Blood Count 4.98 X10*6/uL (4.60-5.80); Red Cell Distribution Width 11.6 % (11.0-16.0); White Blood Count 10.3 X10*3/uL (4.8-10.8)
[2022-12-14 00:29] LABS: Alanine Aminotransferase 110 U/L (0-40); Albumin Level 4.3 g/dL (3.5-5.0); Alkaline Phosphatase 94 U/L (39-117); Anion Gap 15 (12-20); Aspartate Amino Transferase 38 U/L (5-37); Bilirubin Direct < 0.2 mg/dL (0.0-0.5); Bilirubin Total 0.6 mg/dL (0.0-1.0); Blood Urea Nitrogen 15 mg/dL (9-16); Calcium 9.2 mg/dL (8.4-10.2); Carbon Dioxide 25 mmol/L (22-29); Chloride 104 mmol/L (96-108); Estimated Glomerular Filt Rate > 60; Glucose Random 100 mg/dL (60-115); Lipase 12 U/L (8-78); Potassium 4.6 mmol/L (3.3-5.1); Sodium 139 mmol/L (135-145); Total Protein 7.5 g/dL (6.5-8.0)
[2022-12-14 00:30] LABS: COVID-19 Test Negative (Negative); IDNOW Serial# BCCEAD1C
--- NOTE | 2022-12-14 00:59 | ED_ITS ---
HPI - Abdominal Pain General Chief Complaint: Abdominal Pain Stated Complaint: Nausea/ Abdominal Pain Time Seen by Provider: 12/14/22 00:12 Source: patient Mode of arrival: ambulatory Limitations: language barrier (Patient speaks some South African, 1st language is Macedonian, iPad official court interpreter was used) History of Present Illness HPI narrative: 27-year-old male patient presents emergency department for evaluation of abdom inal pain, nausea, vomiting and diarrhea. Patient states that he became ill at around 19:00 hours. He states he developed nausea and had 1 episode of vomiting. He states he felt like he had to move his bowels in on the 3rd attempt he states that he had a large diarrheal stool. Denied any blood in the emesis or in the stool. He states that he also developed diffuse abdominal pain. He describes the pain as a constant, waxing and waning sharp pain which is 10/10 at its worst. He denied fever, chills, rhinorrhea, sore throat, cough, chest pain, shortness of breath or dyspnea on exertion. Denied myalgias or arthralgias. He is not been on antibiotics recently. He states that his was sick all day with similar symptoms. Related Data Previous Rx's Medication Instructions Recorded cyclobenzaprine 10 mg tablet 10 mg PO Q8H PRN Muscle spasm #14 05/03/22 tabs naproxen 500 mg tablet 500 mg PO BID PRN pain #14 tabs 05/03/22 lidocaine HCl 2 % mucosal solution 1.2 ml mucous membrane BID #100 mL 11/14/22 (Lidocaine Viscous) amoxicillin 875 mg-potassium 1 tab PO Q12H #20 tabs 11/15/22 clavulanate 125 mg tablet ibuprofen 600 mg tablet 600 mg PO Q8H PRN fever or pain 11/15/22 #14 tabs ondansetron 4 mg disintegrating 4 mg PO Q6-8H PRN nausea and 12/14/22 tablet vomiting #14 tabs Allergies Allergy/AdvReac Type Severity Reaction Status Date / Time No Known Allergies Allergy Verified 05/03/22 09:29 Review of Systems Review of Systems Yes all other systems are reviewed and are negative [facility] Past Medical History [facility] Narrative: Past medical history: None. Past surgical history: None. Social history: He denies tobacco, alcohol and drug use. Social History Social History Alcohol intake: never Smoked in Last 30 Days: No Use of substances other than those prescribed or required for medical reasons: No Advance Directives: No Advance Directives Information Provided: Yes Physical Exam ED Vital Signs: Vital Signs - 24 hr 12/13/22 23:49 Temperature 97 F Pulse Rate 93 Respiratory Rate 20 Blood Pressure 117/73 Pulse Oximetry 100 Oxygen Delivery Method Room Air BMI result Body Mass Index 25.8 Const General: cooperative and no acute distress Orientation/consciousness: oriented to person and oriented to place Limitations: no limitations HENMT Head: Yes normal to inspection, Yes normocephalic and Yes atraumatic Ears: external ears normal General nose exam: Normal external nose present Face and sinus: Yes normal facial exam Mouth: Normal oral and palatal mucosa present Throat: Yes posterior oropharynx normal Eyes General: appearance normal, both eyes and all related structures Pupils: Equal, round and reactive pupils present Neck Neck: Yes normal visual inspection, Yes no lymphadenopathy, Yes trachea midline and Yes supple Chest Chest palpation & inspection: normal inspection of the chest and normal palpation of entire chest wall Resp Effort & Inspection: normal respiratory effort and able to speak in complete sentences Auscultation: clear to auscultation bilaterally Cardio Rate: regular rate Rhythm: regular rhythm Heart sounds: S1 normal heart sound present, S2 normal heart sound present and no murmurs GI Inspection: Yes normal to inspection Palpation (GI): Soft to palpation, Tenderness to palpation present (GI) (Moderate epigastric tenderness) and no guarding Auscultation: normal bowel sounds General: Yes no CVA tenderness Back/Spine/Pelvis Back: no CVA tenderness Neuro General: oriented to person and oriented to place Cranial nerves: Yes CN's II-XII intact bilaterally and Yes Equal, round and reactive pupils present Cognition (Neuro): normal cognition Motor exam (neuro): 5/5 motor strength present throughout Extrem General: Yes normal to inspection Psych Appearance: grossly normal Speech and movement: Normal speech and movement present Affect: normal affect Attitude: cooperative Medical Decision Making Medical Decision Making MDM Narrative: 27-year-old male who presents emergency department for evaluation of abdominal pain, nausea, vomiting and diarrhea with symptoms beginning at 07:00 hours. The vital signs were normal. Examination did reveal epigastric tenderness. Laboratory evaluation was ordered to include CBC, CMP, lipase, COVID-19 influenza. Patient was ordered to get Toradol 15 mg IV, Zofran 4 mg IV and normal saline x1 L 0104: My independent interpretation the patient's laboratory evaluation is as follows: CBC normal. CMP normal except for elevated AST 38 elevated ALT of 110. Lipase was normal. COVID-19 negative. 0143: Patient is feeling better after the above treatment, however he still has some nausea and abdominal pain. Patient was ordered to get Reglan 10 mg IV and Benadryl 50 mg IV. Patient will be discharged after he receives his medications. Patient was given a prescription for Zofran ODT. He was advised take Tylenol and ibuprofen for his pain. He is advised to take Imodium as needed for diarrhea. He was given printed and verbal instructions and discharged home. He is also given a work note. Differential Diagnosis Differential diagnosis includes but is not limited to gastritis, gastroenteritis, viral syndrome, appendicitis, pancreatitis Lab Data [facility] Lab Attestation statement: I reviewed the patient's lab results. Please see [facility] for my discussion regarding the patient's laboratory evaluation 12/14/22 00:05 12/14/22 00:05 Labs: Lab Results 12/14/22 12/14/22 12/14/22 Range/Units 00:03 00:05 00:05 WBC 10.3 (4.8-10.8) X10*3/uL RBC 4.98 (4.60-5.80) X10*6/uL Hgb 14.0 (14.0-18.0) g/dl Hct 42.6 (42.0-52.0) % MCV 85.5 (80.0-98.0) fL MCH 28.1 (27.0-33.0) pg MCHC 32.9 (31.0-36.0) g/dl RDW 11.6 (11.0-16.0) % Plt Count 255 (160-400) X10*3/uL MPV 10.1 (9.4-12.4) fL Absolute Nucleated RBC 0.000 (0.0-0.012) X10*3/uL Nucleated RBC % (auto) 0.0 (0.0-0.2) /100WBC Sodium 139 (135-145) mmol/L Potassium 4.6 (3.3-5.1) mmol/L Chloride 104 (96-108) mmol/L Carbon Dioxide 25 (22-29) mmol/L Anion Gap 15 (12-20) BUN 15 (9-16) mg/dL Creatinine 0.91 (0.5-1.4) mg/dL Estim Creat Clear Calc 127.0 Estimated GFR > 60 Random Glucose 100 (60-115) mg/dL Calcium 9.2 (8.4-10.2) mg/dL Total Bilirubin 0.6 (0.0-1.0) mg/dL Direct Bilirubin < 0.2 (0.0-0.5) mg/dL AST 38 H (5-37) U/L ALT 110 H (0-40) U/L Alkaline Phosphatase 94 (39-117) U/L Total Protein 7.5 (6.5-8.0) g/dL Albumin 4.3 (3.5-5.0) g/dL Lipase 12 (8-78) U/L COVID-19 (TREY) Negative (Negative) COVID-19 Clin Com See Note Influenza Type A (STEPHANIE) (Negative) Influenza Type B (STEPHANIE) (Negative) Influenza A & B Note 12/14/22 Range/Units 00:43 WBC (4.8-10.8) X10*3/uL RBC (4.60-5.80) X10*6/uL Hgb (14.0-18.0) g/dl Hct (42.0-52.0) % MCV (80.0-98.0) fL MCH (27.0-33.0) pg MCHC (31.0-36.0) g/dl RDW (11.0-16.0) % Plt Count (160-400) X10*3/uL MPV (9.4-12.4) fL Absolute Nucleated RBC (0.0-0.012) X10*3/uL Nucleated RBC % (auto) (0.0-0.2) /100WBC Sodium (135-145) mmol/L Potassium (3.3-5.1) mmol/L Chloride (96-108) mmol/L Carbon Dioxide (22-29) mmol/L Anion Gap (12-20) BUN (9-16) mg/dL Creatinine (0.5-1.4) mg/dL Estim Creat Clear Calc Estimated GFR Random Glucose (60-115) mg/dL Calcium (8.4-10.2) mg/dL Total Bilirubin (0.0-1.0) mg/dL Direct Bilirubin (0.0-0.5) mg/dL AST (5-37) U/L ALT (0-40) U/L Alkaline Phosphatase (39-117) U/L Total Protein (6.5-8.0) g/dL Albumin (3.5-5.0) g/dL Lipase (8-78) U/L COVID-19 (TREY) (Negative) COVID-19 Clin Com Influenza Type A (STEPHANIE) Negative (Negative) Influenza Type B (STEPHANIE) Negative (Negative) Influenza A & B Note See Note Medications Administered Discontinued Medications Generic Name Dose Route Start Last Admin Trade Name Freq PRN Reason Stop Dose Admin Sodium Chloride 1,000 mls @ 999 mls/hr 12/14/22 00:31 12/14/22 01:04 Ns IV 12/14/22 01:31 999 mls/hr .Q1H1M STA Administration Ketorolac Tromethamine 15 mg 12/14/22 00:31 12/14/22 01:03 Ketorolac Tromethamine 15 Mg/Ml Vial IVPUSH 12/14/22 00:32 15 mg ONCE STA Administration Ondansetron HCl 4 mg 12/14/22 00:31 12/14/22 01:03 Ondansetron Hcl 4 Mg/2 Ml Vial IVPUSH 12/14/22 00:32 4 mg ONCE ONE Administration Discharge Plan Discharge Clinical Impression: Viral syndrome, Abdominal pain, Vomiting, Diarrhea Patient Disposition: Home, Self-Care Instructions: Viral Syndrome (ED) Additional Instructions: Your blood work was unremarkable. Your COVID-19 test was negative Your influenza test was negative. Your symptoms are caused by a virus, there are many viruses that we cannot test for. Take Zofran ODT 4 mg pills, 1 pill dissolved in your mouth every 8 hours as needed for nausea and vomiting. Take ibuprofen 200 mg pills, 3 pills every 6 hours as needed for pain or fever. Take Tylenol (acetaminophen) 500 mg pills, 2 pills every 4 to 6 hours as needed for pain or fever. For diarrhea I want you to take Imodium 2 mg pills. Take 2 pills after the 1st loose, diarrheal stool then 1 pill after each loose, diarrheal stool up to 8 pills per day. This usually stops diarrhea within 24 hours. Follow-up with your doctor in 2 days. Please return to the emergency department if your symptoms get worse or if you develop any symptoms that are concerning to you. Please see the work note. Prescriptions: New ondansetron 4 mg tablet,disintegrating 4 mg PO Q6-8H PRN (Reason: nausea and vomiting) Qty: 14 0RF No Action lidocaine HCl [Lidocaine Viscous] 2 % solution 1.2 ml mucous membrane BID Qty: 100 0RF amoxicillin-pot clavulanate 875-125 mg tablet 1 tab PO Q12H Qty: 20 0RF ibuprofen 600 mg tablet 600 mg PO Q8H PRN (Reason: fever or pain) Qty: 14 0RF naproxen 500 mg tablet 500 mg PO BID PRN (Reason: pain) Qty: 14 0RF cyclobenzaprine 10 mg tablet 10 mg PO Q8H PRN (Reason: Muscle spasm) Qty: 14 0RF Stand Alone Forms: Work/School Release Print Language: Macedonian
[2022-12-14] MEDS: ondansetron HCL 4 MG/2 ML VIAL IVPUSH (01:03)
[2022-12-14] MEDS: Ketorolac Tromethamine 15 MG/ML VIAL IVPUSH (01:03)
[2022-12-14] MEDS: 0.9 % Sodium Chloride 1,000 ML 999 ML IV (01:04)
[2022-12-14 01:08] LABS: IDNOW Serial# 6674DD1D; Influenza A Negative (Negative); Influenza B2 Negative (Negative)
[2022-12-14 01:54] VITALS: BP 114/61; PULSE 82; RESP 14; TEMP 36.7; O2SAT 98
--- NOTE | 2022-12-14 02:36 | PC.NURSE ---
discharge instructions given/explained,steady gait, no apparent distress, all questions answered
== END 2022-12-14 04:27 | disposition home or self-care (01) ==
PROVIDERS: Emergency Provider Emergency Medicine Emergency Medical Services
DX: B34.9 Viral infection, unspecified (principal); R19.7 Diarrhea, unspecified; R11.2 Nausea with vomiting, unspecified; R10.9 Unspecified abdominal pain; Z20.822 Contact with and (suspected) exposure to COVID-19
CPT/HCPCS: 36415; 80053; 82248; 83690; 85027; 87502; 87635; 96361; 96374; 96375; 99284; 99285; J1885; J2405

== ENCOUNTER 2022-12-14 16:22 | Emergency (ER) | payer MEDICAID, SELFPAY ==
[2022-12-14 16:36] VITALS: BP 117/55; PULSE 88; RESP 18; TEMP 36.6; O2SAT 98; BMI 25.8
--- NOTE | 2022-12-14 16:39 | ED_ITS ---
HPI - Wound/Laceration General Chief Complaint: Wound/Laceration <Bria Silveiar NP - Last Filed: 12/14/22 16:42> Stated Complaint: finger lac <Bria Silveira NP - Last Filed: 12/14/22 16:42> Time Seen by Provider: 12/14/22 18:50 <Bria Silveira NP - Last Filed: 12/14/22 16:42> Source: patient <Bridget Hubbard NP - Last Filed: 12/15/22 02:09> Mode of arrival: ambulatory <Bridget Hubbard NP - Last Filed: 12/15/22 02:09> Limitations: language barrier <Bridget Hubbard NP - Last Filed: 12/15/22 02:09> History of Present Illness HPI narrative: 27-year-old male presents for laceration to his left index finger. <Bridget Hubbard NP - Last Filed: 12/15/22 02:09> Onset (ago): hour(s) (Within the hour of arrival) <Bridget Hubbard NP - Last Filed: 12/15/22 02:09> Extremity Location: left: hand (Index finger) <Bridget Hubbard NP - Last Filed: 12/15/22 02:09> Place: home <Bridget Hubbard NP - Last Filed: 12/15/22 02:09> Patient tetanus UTD: Yes <Bridget Hubbard NP - Last Filed: 12/15/22 02:09> Context: accidental <rBidget Hubbard NP - Last Filed: 12/15/22 02:09> Associated symptoms: pain <Bridget Hubbard NP - Last Filed: 12/15/22 02:09> Treatments prior to arrival: bandage <SUZETTE Carter Last Filed: 12/15/22 02:09> Related Data Home Medications: Previous Rx's Medication Instructions Recorded cyclobenzaprine 10 mg tablet 10 mg PO Q8H PRN Muscle spasm #14 05/03/22 tabs naproxen 500 mg tablet 500 mg PO BID PRN pain #14 tabs 05/03/22 lidocaine HCl 2 % mucosal solution 1.2 ml mucous membrane BID #100 mL 11/14/22 (Lidocaine Viscous) amoxicillin 875 mg-potassium 1 tab PO Q12H #20 tabs 11/15/22 clavulanate 125 mg tablet ibuprofen 600 mg tablet 600 mg PO Q8H PRN fever or pain 11/15/22 #14 tabs ondansetron 4 mg disintegrating 4 mg PO Q6-8H PRN nausea and 12/14/22 tablet vomiting #14 tabs <Bria Silveira NP - Last Filed: 12/14/22 16:42> Allergies/Adverse Reactions: Allergies Allergy/AdvReac Type Severity Reaction Status Date / Time No Known Allergies Allergy Verified 05/03/22 09:29 <Bria Silveira NP - Last Filed: 12/14/22 16:42> Review of Systems Review of Systems: Constitutional: No Fever, No Chills Respiratory: No Cough, No Dyspnea Musculoskeletal: positive left index finger pain, No Myalgias, No Joint Swelling Skin: Positive left index finger laceration Neuro: No Weakness, No Numbness <Bridget Hubbard NP - Last Filed: 12/15/22 02:09> Yes all other systems are reviewed and are negative <Bridget Hubbard NP - Last Filed: 12/15/22 02:09> [facility] Past Medical History Attestation statement: The following information was validated with the patient. <Bridget Hubbard NP - Last Filed: 12/15/22 02:09> Source: old records reviewed <Bridget Hubbard NP - Last Filed: 12/15/22 02:09> Social History Social History: Social History Alcohol intake: never Advance Directives: No Advance Directives Information Provided: No <Bria Silveira NP - Last Filed: 12/14/22 16:42> Physical Exam Vital Signs: Vital Signs: Last Vital Signs Temp 99.5 F 12/14/22 19:43 Pulse 75 12/14/22 19:43 Resp 17 12/14/22 19:43 BP 109/58 L 12/14/22 19:43 Pulse Ox 99 12/14/22 19:43 O2 Del Method 12/14/22 19:43 BMI result Body Mass Index 25.8 <Bria Silveira NP - Last Filed: 12/14/22 16:42> Vital Signs: Last Vital Signs Temp 99.5 F 12/14/22 19:43 Pulse 75 12/14/22 19:43 Resp 17 12/14/22 19:43 BP 109/58 L 12/14/22 19:43 Pulse Ox 99 12/14/22 19:43 O2 Del Method 12/14/22 19:43 BMI result Body Mass Index 25.8 <Bridget Hubbard NP - Last Filed: 12/15/22 02:09> Appearance: Alert. Oriented X3. No acute distress. Eyes: Pupils equal, round and reactive to light. Neck: Normal inspection. Neck supple. CVS: Normal heart rate and rhythm. Pulses normal. Respiratory: No respiratory distress. Skin: 1.5 cm laceration to the index finger below the nail line, no nail bed involvement Extremities: Full range of motion to the digits. Brisk capillary refill, equal pulses. Neuro: No motor deficit. No sensory deficit. Cranial nerves 2-12 intact. <Bridget Hubbard NP - Last Filed: 12/15/22 02:09> Course Course Course Narrative: This is a rapid medical exam. Defer additional HPI, ROS, PE to primary provider. 27-year-old male healthy, [id number] here with laceration to the left index finger which occurred while cutting a lemon with a knife. Tetanus UTD. VSS <Bria Silveira NP - Last Filed: 12/14/22 16:42> This is a rapid medical exam. Defer additional HPI, ROS, PE to primary provider. 27-year-old male healthy, [id number] here with laceration to the left index finger which occurred while cutting a lemon with a knife. Tetanus UTD. VSS 27-year-old male presents for laceration to the left index finger. He was evaluated at this facility earlier today for nausea vomiting and diagnosed with gastroenteritis. He was preparing did drill with azra and cut his finger accidentally. He has a 1.5 cm laceration to the dorsal aspect of the left digit just below the nail bed with no nail bed involvement. Plan of care is for laceration repair. Prepped and draped in sterile fashion. Irrigated with copious amounts of s nish. Betadine cleanse. Patient tolerated procedure well. Please refer to procedure note for full details. 19:46 patient continues with brisk capillary refill, full range of motion, neurovascularly intact to the digit. Plan of care is to DC to home. Patient verbalized understanding of signs symptoms indicating need for emergent intervention, verbalized understanding of discharge instructions. material worker utilized for all correspondence. Google translate utilized for discharge instructions. <Bridget Hubbard NP - Last Filed: 12/15/22 02:09> Medications Administered Discontinued Medications Generic Name Dose Route Start Last Admin Trade Name Freq PRN Reason Stop Dose Admin Diphtheria/Tetanus/Acell Pertussis 0.5 ml 12/14/22 18:51 12/14/22 19:33 Diphth,Pertus(Acell),Tet Adult 0.5 Ml Syringe IM 12/14/22 18:52 Not Given .ONCE ONE Lidocaine HCl 5 ml 12/14/22 18:51 12/14/22 19:33 Lidocaine Hcl 1 % Mpf 5 Ml Vial SUBCUT 12/14/22 18:52 5 ml ONCE ONE Administration <Bria Silveira NP - Last Filed: 12/14/22 16:42> Medications Administered Discontinued Medications Generic Name Dose Route Start Last Admin Trade Name Freq PRN Reason Stop Dose Admin Diphtheria/Tetanus/Acell Pertussis 0.5 ml 12/14/22 18:51 12/14/22 19:33 Diphth,Pertus(Acell),Tet Adult 0.5 Ml Syringe IM 12/14/22 18:52 Not Given .ONCE ONE Lidocaine HCl 5 ml 12/14/22 18:51 12/14/22 19:33 Lidocaine Hcl 1 % Mpf 5 Ml Vial SUBCUT 12/14/22 18:52 5 ml ONCE ONE Administration <Bridget Hubbard NP - Last Filed: 12/15/22 02:09> Medical Decision Making Differential Diagnosis Differential Diagnoses: The differential diagnosis associated with the presentation includes <Bridget Hubbard NP - Last Filed: 12/15/22 02:09> Laceration <Bridget Hubbard NP - Last Filed: 12/15/22 02:09> External Record Review External record reviewed: Outpatient record and Prior outpatient labs <Bridget Hubbard NP - Last Filed: 12/15/22 02:09> Procedures Laceration Laceration 1: Site: hand (Left index finger) <Bridget Hubbard NP - Last Filed: 12/15/22 02:09> Size (cm): 1.5 <Bridget Hubbard NP - Last Filed: 12/15/22 02:09> Description: linear <Bridget Hubbard NP - Last Filed: 12/15/22 02:09> Depth: simple, single layer <Bridget Hubbard NP - Last Filed: 12/15/22 02:09> Local Anesthetic: lidocaine 1% <Bridget Hubbard NP - Last Filed: 12/15/22 02:09> Amount of anesthesia used (mL): 3 <Bridget Hubbard NP - Last Filed: 12/15/22 02:09> Pre-repair: wound explored, irrigated extensively and deep structures intact <Bridget Hubbard NP - Last Filed: 12/15/22 02:09> Skin layer closed with: nylon <Bridget Hubbard NP - Last Filed: 12/15/22 02:09> Size (cm): 5-0 <Bridget Hubbard NP - Last Filed: 12/15/22 02:09> Number of sutures: 4 <Bridget Hubbard NP - Last Filed: 12/15/22 02:09> Technique: simple, interrupted <Bridget Hubbard NP - Last Filed: 12/15/22 0 2:09> Discharge Plan Discharge Clinical Impression: Laceration <Bria Silveira NP - Last Filed: 12/14/22 16:42> Patient Disposition: Home, Self-Care <Bria Silveira NP - Last Filed: 12/14/22 16:42> Instructions: Finger Laceration (ED) <Bria Silveira NP - Last Filed: 12/14/22 16:42> Additional Instructions: Te evaluaron por laceraci?n en el dedo. Colocamos 4 puntos. Regrese en 10 a 14 d?as para que le quiten las suturas. Conrado por elegir conor departamento de emergencias para oliver evaluaci?n. Por favor, edi un seguimiento con el m?dico de atenci?n primaria seg?n sea necesario. Regrese al departamento de emergencias por cualquier s?ntoma nuevo, preocupante o que empeore. You were evaluated for finger laceration. We placed 4 stitches. Please return in 10-14 days to have sutures removed. Thank you for choosing this emergency department for evaluation. Please follow-up with primary care physician as needed. Return to the emergency department for any new, concerning, or worsening symptoms. <Bria Silveira NP - Last Filed: 12/14/22 16:42> Prescriptions: No Action lidocaine HCl [Lidocaine Viscous] 2 % solution 1.2 ml mucous membrane BID Qty: 100 0RF amoxicillin-pot clavulanate 875-125 mg tablet 1 tab PO Q12H Qty: 20 0RF ibuprofen 600 mg tablet 600 mg PO Q8H PRN (Reason: fever or pain) Qty: 14 0RF naproxen 500 mg tablet 500 mg PO BID PRN (Reason: pain) Qty: 14 0RF cyclobenzaprine 10 mg tablet 10 mg PO Q8H PRN (Reason: Muscle spasm) Qty: 14 0RF ondansetron 4 mg tablet,disintegrating 4 mg PO Q6-8H PRN (Reason: nausea and vomiting) Qty: 14 0RF <Bria Silveira NP - Last Filed: 12/14/22 16:42> Stand Alone Forms: Work/School Release <Bria Silveira NP - Last Filed: 12/14/22 16:42> Interventions: ED Discharge Assessment Last Done: 12/14/22 20:00 <Bria Silveira NP - Last Filed: 12/14/22 16:42> Discharge Date/Time: 12/14/22 20:02 <Bria Silveira NP - Last Filed: 12/14/22 16:42>
[2022-12-14] MEDS: Lidocaine HCl 1 % MPF 5 ML VIAL SUBCUT (19:33)
[2022-12-14 19:43] VITALS: BP 109/58; PULSE 75; RESP 17; TEMP 37.5; O2SAT 99
== END 2022-12-14 20:02 | disposition home or self-care (01) ==
PROVIDERS: Emergency Provider Emergency Medicine
DX: S61.211A Laceration without foreign body of left index finger without damage to nail, initial encounter (principal); W26.0XXA Contact with knife, initial encounter; Y93.G1 Activity, food preparation and clean up; Y92.030 Kitchen in apartment as the place of occurrence of the external cause; Y99.8 Other external cause status
CPT/HCPCS: 12001; 99282; 99284

== ENCOUNTER 2022-12-22 08:12 | Emergency (ER) | payer MEDICAID, SELFPAY ==
[2022-12-22 08:24] VITALS: BP 137/85; PULSE 80; RESP 16; TEMP 36.6; O2SAT 99; BMI 25.8
--- NOTE | 2022-12-22 08:29 | ED_ITS ---
HPI - Wound/Laceration General Chief Complaint: Wound/Laceration <SUZETTE Harley Last Filed: 12/22/22 08:46> Stated Complaint: stitch removal <SUZETTE Harley Last Filed: 12/22/22 08:46> Time Seen by Provider: 12/22/22 08:26 <SUZETTE Harley Last Filed: 12/22/22 08:46> Source: patient and supervisor transferring and boxing <SUZETTE Harley Last Filed: 12/22/22 08:46> Mode of arrival: ambulatory <SUZETTE Harley Last Filed: 12/22/22 08:46> Limitations: language barrier <SUZETTE Harley Last Filed: 12/22/22 08:46> History of Present Illness HPI narrative: 27 yo male seen here 12/14 for 4 sutures placed to left index finger here for stitches removal. No complaints. <SUZETTE Harley Last Filed: 12/22/22 08:46> Related Data Home Medications: Previous Rx's Medication Instructions Recorded cyclobenzaprine 10 mg tablet 10 mg PO Q8H PRN Muscle spasm #14 05/03/22 tabs naproxen 500 mg tablet 500 mg PO BID PRN pain #14 tabs 05/03/22 lidocaine HCl 2 % mucosal solution 1.2 ml mucous membrane BID #100 mL 11/14/22 (Lidocaine Viscous) amoxicillin 875 mg-potassium 1 tab PO Q12H #20 tabs 11/15/22 clavulanate 125 mg tablet ibuprofen 600 mg tablet 600 mg PO Q8H PRN fever or pain 11/15/22 #14 tabs ondansetron 4 mg disintegrating 4 mg PO Q6-8H PRN nausea and 12/14/22 tablet vomiting #14 tabs <SUZETET Harley Last Filed: 12/22/22 08:46> Allergies/Adverse Reactions: Allergies Allergy/AdvReac Type Severity Reaction Status Date / Time No Known Allergies Allergy Verified 05/03/22 09:29 <SUZETTE Harley Last Filed: 12/22/22 08:46> Review of Systems Review of Systems: Yes all other systems are reviewed and are negative <Bria Silveira NP - Last Filed: 12/22/22 08:46> Constitutional: Constitutional: Denies chills and Denies fever(s) <Bria Silveira NP - Last Filed: 12/22/22 08:46> Musculoskeletal: Musculoskeletal: Denies arthralgias, Denies joint swelling, Denies limited range of motion, Denies numbness and Denies tingling <Bria Silveira NP - Last Filed: 12/22/22 08:46> Integumentary/Breasts: Skin/Breast: Denies swelling and Denies erythema <Bria Silveira NP - Last Filed: 12/22/22 08:46> Neurologic: Denies Abnormal speech present, Denies numbness and Denies tingling <Bria Silveira NP - Last Filed: 12/22/22 08:46> [facility] Past Medical History Attestation statement: The following information was validated with the patient. <Bria Silveira NP - Last Filed: 12/22/22 08:46> Source: old records reviewed and nursing notes reviewed <Bria Silveira NP - Last Filed: 12/22/22 08:46> Social History Social History: Social History Alcohol intake: never Advance Directives: No <Bria Silveira NP - Last Filed: 12/22/22 08:46> Physical Exam 2 Vital Signs: Vital Signs: Last Vital Signs Temp 97.8 F 12/22/22 08:24 Pulse 80 12/22/22 08:24 Resp 16 12/22/22 08:24 BP 137/85 12/22/22 08:24 Pulse Ox 99 12/22/22 08:24 O2 Del Method 12/22/22 08:24 BMI result Body Mass Index 25.8 <Bria Silveira NP - Last Filed: 12/22/22 08:46> Vital Signs: Last Vital Signs Temp 97.8 F 12/22/22 08:24 Pulse 80 12/22/22 08:24 Resp 12/22/22 08:24 BP 137/85 12/22/22 08:24 Pulse Ox 99 12/22/22 08:24 O2 Del Method 12/22/22 08:24 BMI result Body Mass Index 25.8 <Kaleb Pastor MD - Last Filed: 12/22/22 16:16> Const: General: cooperative, healthy appearing, comfortable and no acute distress <Bria Silveira NP - Last Filed: 12/22/22 08:46> Orientation/consciousness: patient oriented x3 <Bria Silveira NP - Last Filed: 12/22/22 08:46> Limitations: no limitations <Bria Silveira NP - Last Filed: 12/22/22 08:46> HEENT: Head: Yes normal to inspection <Bria Silveira NP - Last Filed: 12/22/22 08:46> Ears: hearing grossly normal bilaterally <Bria Silveira NP - Last Filed: 12/22/22 08:46> General nose exam: Normal external nose present <Bria Silveira NP - Last Filed: 12/22/22 08:46> Face and sinus: Yes normal facial exam <Bria Silveira NP - Last Filed: 12/22/22 08:46> Mouth: Normal oral and palatal mucosa present <Bria Silveira NP - Last Filed: 12/22/22 08:46> Throat: Yes posterior oropharynx normal <Bria Silveira NP - Last Filed: 12/22/22 08:46> Eyes: General: appearance normal, both eyes and all related structures <Bria Silveira NP - Last Filed: 12/22/22 08:46> Pupils: Equal, round and reactive pupils present <Bria Silveira NP - Last Filed: 12/22/22 08:46> Neck: Neck: Yes normal visual inspection <Bria Silveira NP - Last Filed: 12/22/22 08:46> Chest: Chest palpation & inspection: normal inspection of the chest <Bria Silveira NP - Last Filed: 12/22/22 08:46> Resp: Effort & Inspection: normal respiratory effort <Bria Silveira MAMMAL CONTROL AGENT - Last Filed: 12/22/22 08:46> Auscultation: clear to auscultation bilaterally <Bria Silveira MAMMAL CONTROL AGENT - Last Filed: 12/22/22 08:46> Cardio: Rate: regular rate <Bria Silveira MAMMAL CONTROL AGENT - Last Filed: 12/22/22 08:46> Rhythm: regular rhythm <Bria Silveira MAMMAL CONTROL AGENT - Last Filed: 12/22/22 08:46> Peripheral pulses: Peripheral pulses 2+ throughout <Bria Silveira, MAMMAL CONTROL AGENT - Last Filed: 12/22/22 08:46> GI: Inspection: Yes normal to inspection <Bria Silveira MAMMAL CONTROL AGENT - Last Filed: 12/22/22 08:46> Palpation (GI): Soft to palpation and nontender <Bria Silveira, MAMMAL CONTROL AGENT - Last Filed: 12/22/22 08:46> Auscultation: normal bowel sounds <Bria Silveira, MAMMAL CONTROL AGENT - Last Filed: 12/22/22 08:46> Back/Spine/Pelvis: Thoracic/Lumbar Spine: thoracic and lumbar spine normal to inspection <Bria Silveira, MAMMAL CONTROL AGENT - Last Filed: 12/22/22 08:46> Skin: General skin exam: no rashes or lesions noted <Bria Silveira MAMMAL CONTROL AGENT - Last Filed: 12/22/22 08:46> Neuro: General: patient oriented x3, no focal motor deficits and normal sensation to monofilament <Bria Silveira MAMMAL CONTROL AGENT - Last Filed: 12/22/22 08:46> Cranial nerves: Yes Equal, round and reactive pupils present <Bria Silveira, MAMMAL CONTROL AGENT - Last Filed: 12/22/22 08:46> Cognition (Neuro): normal cognition <Bria Silveira MAMMAL CONTROL AGENT - Last Filed: 12/22/22 08:46> Speech: No Abnormal speech present <Bria Silveira, MAMMAL CONTROL AGENT - Last Filed: 12/22/22 08:46> Gait exam (Neuro): Normal gait present <Bria Silveira MAMMAL CONTROL AGENT - Last Filed: 02/16/23 08:46> Motor exam (neuro): 5/5 motor strength present throughout <Bria Silveira NP - Last Filed: 12/22/22 08:46> Extrem: Other: To the medial aspect of the distal left index finger there are 4 sutures present at a healing laceratio. <Bria Silveira NP - Last Filed: 12/22/22 08:46> General: Yes normal to inspection <Bria Silveira NP - Last Filed: 12/22/22 08:46> Medical Decision Making Medical Decision Making MDM Narrative: 27-year-old male here seeking suture removal from left index finger which replaced 8 days ago. Patient has no complaints. See procedure note. <Bria Silveira NP - Last Filed: 12/22/22 08:46> Attestation Attending Attestation: I reviewed HEAD PASTRY CHEF/PA/Resident note, assessment and plan. I agree with the documentation, assessment and plan unless otherwise stated. <Kaleb Pastor MD - Last Filed: 12/22/22 16:16> Procedures Procedure Narrative Procedure Narrative: 4 sutures removed from left index finger. Edges are approximated. Full range of motion of the digit. Neurovascular intact distally. <Bria Silveira NP - Last Filed: 12/22/22 08:46> Discharge Plan Discharge Clinical Impression: Visit for suture removal <Bria Silveira NP - Last Filed: 12/22/22 08:46> Patient Disposition: Home, Self-Care <Bria Silveira NP - Last Filed: 12/22/22 08:46> Instructions: Stitches Removal (ED) <Bria Silveira NP - Last Filed: 12/22/22 08:46> Prescriptions: No Action lidocaine HCl [Lidocaine Viscous] 2 % solution 1.2 ml mucous membrane BID Qty: 100 0RF amoxicillin-pot clavulanate 875-125 mg tablet 1 tab PO Q12H Qty: 20 0RF ibuprofen 600 mg tablet 600 mg PO Q8H PRN (Reason: fever or pain) Qty: 14 0RF naproxen 500 mg tablet 500 mg PO BID PRN (Reason: pain) Qty: 14 0RF cyclobenzaprine 10 mg tablet 10 mg PO Q8H PRN (Reason: Muscle spasm) Qty: 14 0RF ondansetron 4 mg tablet,disintegrating 4 mg PO Q6-8H PRN (Reason: nausea and vomiting) Qty: 14 0RF <Bria Silveira NP - Last Filed: 12/22/22 08:46> Referrals: Physician,None [Primary Care Provider] - <Bria Silveira NP - Last Filed: 12/22/22 08:46> Stand Alone Forms: Work/School Release <Bria Silveira NP - Last Filed: 12/22/22 08:46> Interventions: ED Discharge Assessment Last Done: 12/22/22 09:02 <Bira Silveira NP - Last Filed: 12/22/22 08:46> Discharge Date/Time: 12/22/22 09:02 <Bria Silveira NP - Last Filed: 12/22/22 08:46> Print Language: Mongolian <Bria Silveira NP - Last Filed: 12/22/22 08:46>
== END 2022-12-22 09:02 | disposition home or self-care (01) ==
PROVIDERS: Emergency Provider Emergency Medicine
DX: Z48.02 Encounter for removal of sutures (principal); Z79.899 Other long term (current) drug therapy
CPT/HCPCS: 99282; 99283

== ENCOUNTER 2023-02-11 23:38 | Emergency (ER) | payer MEDICAID, SELFPAY ==
[2023-02-12 00:37] VITALS: BP 120/59; PULSE 85; RESP 16; TEMP 36.7; O2SAT 99; BMI 25.8
--- NOTE | 2023-02-12 00:53 | ED.GENADULT ---
HPI - General Adult General Chief complaint: General Medical Stated complaint: throat pain Time Seen by Provider: 02/12/23 00:49 Source: patient, RN notes reviewed and manager integrated Mode of arrival: ambulatory Limitations: language barrier History of Present Illness HPI narrative: 28-year-old male who denies any past medical history presents for evaluation of a sore throat. Patient reports her sore throat for the last 3 days. It started mild and has been getting progressively worse He denies any fevers, chills. He is able to swallow his secretions and food. Denies any cough or shortness of breath He believes that he has a ?bacteria because I had the same theme a few months ago. ? Related Data Previous Rx's Medication Instructions Recorded cyclobenzaprine 10 mg tablet 10 mg PO Q8H PRN Muscle spasm #14 05/03/22 tabs naproxen 500 mg tablet 500 mg PO BID PRN pain #14 tabs 05/03/22 lidocaine HCl 2 % mucosal solution 1.2 ml mucous membrane BID #100 mL 11/14/22 (Lidocaine Viscous) amoxicillin 875 mg-potassium 1 tab PO Q12H #20 tabs 11/15/22 clavulanate 125 mg tablet ibuprofen 600 mg tablet 600 mg PO Q8H PRN fever or pain 11/15/22 #14 tabs ondansetron 4 mg disintegrating 4 mg PO Q6-8H PRN nausea and 12/14/22 tablet vomiting #14 tabs amoxicillin 875 mg-potassium 1 tab PO BID #14 tabs 02/12/23 clavulanate 125 mg tablet Allergies Allergy/AdvReac Type Severity Reaction Status Date / Time No Known Allergies Allergy Verified 05/03/22 09:29 Review of Systems Constitutional: Constitutional: Reports as per HPI, Denies chills, Denies fatigue, Denies fever(s) and Denies headache(s) ENT: Denies headache(s), Reports sore throat and Denies throat swelling Cardiovascular: Cardiovascular: Denies chest pain and Denies dyspnea Respiratory: Respiratory: Denies cough and Denies dyspnea Gastrointestinal: Gastrointestinal: Denies abdominal pain, Denies constipation and Denies vomiting Neurologic: Denies headache(s) and Denies focal weakness Endocrine: Endocrine: Denies fatigue Allergic/Immunologic: Allergic/Immunologic: Denies throat swelling PMFSH Social History Social History Alcohol intake: never Physical Exam ED Vital Signs: Vital Signs - 24 hr 02/12/23 00:37 Temperature 98.0 F Pulse Rate 85 Respiratory Rate 16 Blood Pressure 120/59 L Pulse Oximetry 99 Oxygen Delivery Method Room Air BMI result Body Mass Index 25.8 Const General: healthy appearing, comfortable, no acute distress, alert and awake Nutritional Appearance: well nourished Orientation/consciousness: patient oriented x3 HENMT Throat: No peritonsillar mass and Yes posterior oropharynx abnormal (Bilateral tonsillar hypertrophy with erythema and with this exudates) Eyes Eyelids: Yes eyelids normal Conjunctivae: conjunctivae normal Sclerae: sclerae normal Corneas: corneas normal Pupils: Equal, round and reactive pupils present EOM: EOMs intact bilaterally Neck Neck: Yes full ROM Resp Effort & Inspection: normal respiratory effort, able to speak in complete sentences, no audible wheezes and not labored Auscultation: clear to auscultation bilaterally Cardio Rate: regular rate Rhythm: regular rhythm GI Inspection: No distended Palpation (GI): Soft to palpation, not firm, nontender, no guarding and not rigid Auscultation: normoactive bowel sounds Skin General skin exam: no rashes or lesions noted and elasticity normal Neuro General: patient oriented x3 Cranial nerves: Yes CN's II-XII intact bilaterally, Yes Equal, round and reactive pupils present and Yes Bilaterally intact EOM present Cognition (Neuro): normal cognition Extrem Other: Moving all extremities well without any obvious deformities Medical Decision Making Medical Decision Making MDM Narrative: 28-year-old male presents for evaluation of sore throat, he does have a muffled voice. Airway is widely patent, no evidence of peritonsillar abscess. A strep swab is pending. Differential Diagnosis Strep throat Pharyngitis Upper respiratory infection Viral syndrome Lab Data Labs: Lab Results 02/12/23 Range/Units 00:43 S. pyogenes GrpA STEPHANIE Negative (Negative) Discharge Plan Discharge Clinical Impression: Pharyngitis Patient Disposition: Home, Self-Care Instructions: Pharyngitis (ED) Additional Instructions: Take your antibiotic twice daily for the next 7 days. Through your toothbrush out after you take your last dose of antibiotic Use ibuprofen or Tylenol for pain Follow-up with your primary doctor Prescriptions: New amoxicillin-pot clavulanate 875-125 mg tablet 1 tab PO BID Qty: 14 0RF No Action lidocaine HCl [Lidocaine Viscous] 2 % solution 1.2 ml mucous membrane BID Qty: 100 0RF amoxicillin-pot clavulanate 875-125 mg tablet 1 tab PO Q12H Qty: 20 0RF ibuprofen 600 mg tablet 600 mg PO Q8H PRN (Reason: fever or pain) Qty: 14 0RF naproxen 500 mg tablet 500 mg PO BID PRN (Reason: pain) Qty: 14 0RF cyclobenzaprine 10 mg tablet 10 mg PO Q8H PRN (Reason: Muscle spasm) Qty: 14 0RF ondansetron 4 mg tablet,disintegrating 4 mg PO Q6-8H PRN (Reason: nausea and vomiting) Qty: 14 0RF
[2023-02-12 01:02] LABS: IDNOW Serial# 6674DD1D; Strep A Nucleic Acid Negative (Negative)
== END 2023-02-12 01:30 | disposition home or self-care (01) ==
PROVIDERS: Emergency Provider Student in an Organized Health Care Education/Training Program
DX: J02.9 Acute pharyngitis, unspecified (principal); Z79.899 Other long term (current) drug therapy
CPT/HCPCS: 87651; 99283

== ENCOUNTER 2023-02-16 20:38 | Emergency (ER) | payer MEDICAID, SELFPAY ==
[2023-02-16 20:42] VITALS: BP 124/77; PULSE 93; RESP 18; TEMP 36.4; O2SAT 98; BMI 25.8
--- NOTE | 2023-02-16 20:42 | ED.HA ---
HPI - Headache General Chief Complaint: Headache Stated Complaint: Headache Source: patient and translator and interpreter Mode of arrival: ambulatory Limitations: language barrier Related Data Previous Rx's Medication Instructions Recorded cyclobenzaprine 10 mg tablet 10 mg PO Q8H PRN Muscle spasm #14 05/03/22 tabs naproxen 500 mg tablet 500 mg PO BID PRN pain #14 tabs 05/03/22 lidocaine HCl 2 % mucosal solution 1.2 ml mucous membrane BID #100 mL 11/14/22 (Lidocaine Viscous) amoxicillin 875 mg-potassium 1 tab PO Q12H #20 tabs 11/15/22 clavulanate 125 mg tablet ibuprofen 600 mg tablet 600 mg PO Q8H PRN fever or pain 11/15/22 #14 tabs ondansetron 4 mg disintegrating 4 mg PO Q6-8H PRN nausea and 12/14/22 tablet vomiting #14 tabs amoxicillin 875 mg-potassium 1 tab PO BID #14 tabs 02/12/23 clavulanate 125 mg tablet Allergies Allergy/AdvReac Type Severity Reaction Status Date / Time No Known Allergies Allergy Verified 02/16/23 20:42 [facility] Social History Social History Alcohol intake: never Advance Directives: No Advance Directives Information Provided: No Physical Exam Vital Signs: Vital Signs: Last Vital Signs Temp 97.6 F 02/16/23 20:42 Pulse 93 02/16/23 20:42 Resp 18 02/16/23 20:42 BP 124/77 02/16/23 20:42 Pulse Ox 98 02/16/23 20:42 O2 Del Method Room Air 02/16/23 20:42 BMI result Body Mass Index 25.8 Course Course Course Narrative: This is a rapid medical exam. Deferred HPI, ROS, PE to primary provider. 28-year-old male here with headache for 2 days, took Motrin with no relief. Vitals stable. Will send testing for flu, COVID, RSV Medical Decision Making Lab Data Labs: Lab Results 02/16/23 Range/Units 20:50 Influenza Type A (PCR) NEGATIVE (Negative) Influenza Type B (PCR) NEGATIVE (Negative) RSV RNA Qual (PCR) NEGATIVE (Negative) SARS-CoV-2 RNA (RT-PCR) NEGATIVE (Negative) Discharge Plan Discharge Clinical Impression: Headache Patient Disposition: Elopement Prescriptions: No Action lidocaine HCl [Lidocaine Viscous] 2 % solution 1.2 ml mucous membrane BID Qty: 100 0RF amoxicillin-pot clavulanate 875-125 mg tablet 1 tab PO Q12H Qty: 20 0RF ibuprofen 600 mg tablet 600 mg PO Q8H PRN (Reason: fever or pain) Qty: 14 0RF naproxen 500 mg tablet 500 mg PO BID PRN (Reason: pain) Qty: 14 0RF cyclobenzaprine 10 mg tablet 10 mg PO Q8H PRN (Reason: Muscle spasm) Qty: 14 0RF ondansetron 4 mg tablet,disintegrating 4 mg PO Q6-8H PRN (Reason: nausea and vomiting) Qty: 14 0RF amoxicillin-pot clavulanate 875-125 mg tablet 1 tab PO BID Qty: 14 0RF Interventions: FANNY Worksheet Last Done: 02/16/23 22:40 Discharge Date/Time: 02/16/23 22:40
[2023-02-16 21:34] LABS: Influenza A PCR NEGATIVE (Negative); Influenza B PCR NEGATIVE (Negative); Resp Syncy Virus RNA Qual PCR NEGATIVE (Negative); SARS COV2 PCR INHOUSE NEGATIVE (Negative)
== END 2023-02-16 22:40 | disposition left against medical advice (07) ==
PROVIDERS: Nurse Practitioner Family; Emergency Provider Emergency Medicine
DX: R51.9 Headache, unspecified (principal); Z20.822 Contact with and (suspected) exposure to COVID-19; Z20.828 Contact with and (suspected) exposure to other viral communicable diseases
CPT/HCPCS: 0241U; 99281; 99283

== ENCOUNTER 2023-04-17 06:02 | Emergency (ER) | payer MEDICAID, SELFPAY ==
[2023-04-17 06:08] VITALS: BP 118/77; PULSE 70; RESP 18; TEMP 36.5; O2SAT 98; BMI 26.3
--- NOTE | 2023-04-17 06:34 | ED.GENADULT ---
HPI - General Adult General Chief complaint: Back Pain/Injury Stated complaint: back pain Time Seen by Provider: 04/17/23 06:32 Source: patient Mode of arrival: ambulatory Limitations: no limitations History of Present Illness HPI narrative: Patient is a 28 year old assigned male at with no reported medical history presenting to the emergency department today with left sided low back pain. Patient states that he was recently seen here for this same pain, given naproxen, and felt much better. Patient states that he needs a note for work and needs more naproxen. 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 Patient denies any dizziness, lightheadedness, abdominal pain, nausea, vomiting, fever, chills, blurry vision, double vision, loss of vision, chest pain, difficulty breathing, shortness of breath, night sweats, pain with urination, increased urinary frequency, increased urinary urgency, blood in his urine or stool, syncope or a near syncopal episode, recent trauma or falls, bowel incontinence, bladder incontinence, bowel retention, bladder retention, or any other complaints at this time. Onset (ago): day(s) Location: back and left Radiation: non-radiation Severity: mild Severity scale (1-10): 2 Quality: dull Pain Consistency: intermittent Relieving factors: none Exacerbating factors: movement Associated symptoms: denies other symptoms Treatments prior to arrival: none Related Data Previous Rx's Medication Instructions Recorded cyclobenzaprine 10 mg tablet 10 mg PO Q8H PRN Muscle spasm #14 05/03/22 tabs naproxen 500 mg tablet 500 mg PO BID PRN pain #14 tabs 05/03/22 lidocaine HCl 2 % mucosal solution 1.2 ml mucous membrane BID #100 mL 11/14/22 (Lidocaine Viscous) amoxicillin 875 mg-potassium 1 tab PO Q12H #20 tabs 11/15/22 clavulanate 125 mg tablet ibuprofen 600 mg tablet 600 mg PO Q8H PRN fever or pain 11/15/22 #14 tabs ondansetron 4 mg disintegrating 4 mg PO Q6-8H PRN nausea and 12/14/22 tablet vomiting #14 tabs amoxicillin 875 mg-potassium 1 tab PO BID #14 tabs 02/12/23 clavulanate 125 mg tablet cyclobenzaprine 5 mg tablet 5 mg PO TID PRN muscle spasm 7 04/17/23 days #21 tabs naproxen 500 mg tablet 500 mg PO BID 7 days #14 tabs 04/17/23 Allergies Allergy/AdvReac Type Severity Reaction Status Date / Time No Known Allergies Allergy Verified 04/17/23 06:08 Review of Systems Constitutional: Constitutional: Reports no additional constitutional complaints, Denies chills, Denies fever(s) and Denies night sweats Eyes: Eyes: Reports no additional eye complaints, Denies blurry vision, Denies change in vision, Denies diplopia, Denies eye discharge, Denies loss of vision and Denies eye pain ENT: Denies dizziness Cardiovascular: Cardiovascular: Reports no additional cardiovascular complaints, Denies chest pain, Denies lightheadedness, Denies Loss of Consciousness and Denies dyspnea Respiratory: Respiratory: Reports no additional respiratory complaints and Denies dyspnea Gastrointestinal: Gastrointestinal: Reports no additional gastrointestinal complaints, Denies abdominal pain, Denies melena, Denies hematochezia, Denies change in bowel habits and Denies change in stool character Genitourinary: Genitourinary: Reports no additional male genitourinary complaints, Denies hematuria, Denies oliguria, Denies difficulty urinating, Denies dysuria, Denies urinary frequency, Denies urinary hesitancy, Denies urinary incontinence and Denies urinary urgency Musculoskeletal: Musculoskeletal: Reports no additional musculoskeletal complaints, Reports back pain, Denies numbness and Denies tingling Neurologic: Denies dizziness, Denies loss of vision, Denies numbness and Denies tingling Psychiatric: Psychiatric: Reports no additional psychiatric complaints Endocrine: Endocrine: Reports no additional endocrine complaints Hematologic/Lymphatic: Hematologic/Lymphatic: Reports no additional hematologic/lymphatic complaints Allergic/Immunologic: Allergic/Immunologic: Reports no additional allergic/immunologic complaints [facility] Past Medical History Attestation statement: The following information was validated with the patient. Source: old records reviewed and nursing notes reviewed Social History Social History Alcohol intake: never Advance Directives: No Advance Directives Information Provided: Yes Physical Exam ED Vital Signs: Vital Signs - 24 hr 04/17/23 06:08 Temperature 97.7 F Pulse Rate 70 Respiratory Rate 18 Blood Pressure 118/77 Pulse Oximetry 98 Oxygen Delivery Method Room Air BMI result Body Mass Index 26.3 Const General: cooperative, no acute distress, alert and awake Nutritional Appearance: well nourished Orientation/consciousness: patient oriented x3 Limitations: no limitations HENMT Head: Yes normal to inspection and Yes atraumatic Ears: hearing grossly normal bilaterally and external ears normal General nose exam: Normal external nose present, no nasal discharge noted and no epistaxis Face and sinus: Yes normal facial exam, No abrasion and No laceration Mouth: Normal oral and palatal mucosa present, no drooling and no muffled voice Eyes General: appearance normal, both eyes and all related structures Periorbital: periorbital findings normal Eyelids: Yes eyelids normal Conjunctivae: conjunctivae normal Pupils: Equal, round and reactive pupils present EOM: EOMs intact bilaterally Neck Neck: Yes normal visual inspection, Yes full ROM and Yes no lymphadenopathy Chest Chest palpation & inspection: normal inspection of the chest Resp Effort & Inspection: normal respiratory effort and able to speak in complete sentences Auscultation: clear to auscultation bilaterally Cardio Rate: regular rate Rhythm: regular rhythm GI Inspection: Yes normal to inspection Palpation (GI): Soft to palpation, not firm, nontender and no guarding General: Yes no CVA tenderness Back/Spine/Pelvis Back: no CVA tenderness Cervical Spine: normal cervical lordosis and cervical ROM normal Thoracic/Lumbar Spine: thoracic and lumbar spine normal to inspection and thoraco-lumbar ROM normal Neuro General: patient oriented x3 and moves all extremities Cranial nerves: Yes Equal, round and reactive pupils present Cognition (Neuro): normal cognition Motor exam (neuro): 5/5 motor strength present throughout Sensory Exam: Normal double simultaneous stimulation for sensation Coordination: [id number] test normal Extrem General: Yes normal to inspection, Yes full ROM and Yes capillary refill normal Psych Appearance: grossly normal Mental Status: mental status grossly normal Affect: normal affect Attitude: cooperative Thought process: Normal thought process present Thought content: Normal thought content present Insight: Good insight present (Psych) Medications Administered Discontinued Medications Generic Name Dose Route Start Last Admin Trade Name Freq PRN Reason Stop Dose Admin Cyclobenzaprine HCl 5 mg 04/17/23 06:48 04/17/23 07:08 Cyclobenzaprine Hcl 5 Mg Tablet PO 04/17/23 06:49 5 mg ONCE ONE Administration Naproxen 500 mg 04/17/23 06:48 04/17/23 07:04 Naproxen 500 Mg Tablet PO 04/17/23 06:49 500 mg ONCE ONE Administration Medical Decision Making Medical Decision Making MDM Narrative: Patient is a 28 year old assigned male at with no reported medical history presenting to the emergency department today with left sided low back pain. Patient's physical exam was unremarkable. I explained my physical exam findings to the patient. I answered all questions asked by the patient. Patient received PO Naproxen and Flexeril which he stated helped his symptoms significantly. I stressed the importance of the patient taking his medication as prescribed. I stressed the importance of the patient following up with his primary care provider. I stressed the importance of the patient returning to the emergency department immediately if his symptoms were to worsen or if he were to develop any dizziness, shortness of breath, difficulty breathing, chest pain, blurry vision, loss of vision, nausea, vomiting, abdominal pain, fever, chills, or any other complaints. Patient verbalized agreement and understanding with this treatment plan and discharge. Differential Diagnosis Differential Diagnoses: The differential diagnosis associated with the presentation includes left sided low back pain Discharge Plan Discharge Clinical Impression: Strain of lumbar region Patient Disposition: Home, Self-Care Instructions: Acute Low Back Pain (ED) Additional Instructions: Follow up with your primary care provider and a engineering specialist. Return to the emergency department immediately if your symptoms worsen or if you develop any dizziness, shortness of breath, difficulty breathing, chest pain, blurry vision, loss of vision, nausea, vomiting, abdominal pain, fever, chills, back pain, or any other complaints. Mitchell un seguimiento con oliver proveedor de atenci?n primaria y un especialista en [place] vertebral. Regrese al departamento de emergencias de inmediato si russ s?ntomas empeoran o si presenta mareos, falta de aire, dificultad para respirar, dolor de pecho, visi?n borrosa, p?rdida de la visi?n, n?useas, v?mitos, dolor abdominal, fiebre, escalofr?os, dolor de espalda o cualquier otras quejas. Prescriptions: New cyclobenzaprine 5 mg tablet 5 mg PO TID PRN (Reason: muscle spasm) 7 Days Qty: 21 0RF naproxen 500 mg tablet 500 mg PO BID 7 Days Qty: 14 0RF No Action lidocaine HCl [Lidocaine Viscous] 2 % solution 1.2 ml mucous membrane BID Qty: 100 0RF amoxicillin-pot clavulanate 875-125 mg tablet 1 tab PO Q12H Qty: 20 0RF ibuprofen 600 mg tablet 600 mg PO Q8H PRN (Reason: fever or pain) Qty: 14 0RF naproxen 500 mg tablet 500 mg PO BID PRN (Reason: pain) Qty: 14 0RF cyclobenzaprine 10 mg tablet 10 mg PO Q8H PRN (Reason: Muscle spasm) Qty: 14 0RF ondansetron 4 mg tablet,disintegrating 4 mg PO Q6-8H PRN (Reason: nausea and vomiting) Qty: 14 0RF amoxicillin-pot clavulanate 875-125 mg tablet 1 tab PO BID Qty: 14 0RF Referrals: [facility] – [place] Family [facility] [Provider Group] (Call to establish and follow up with a primary care provider. If you already have a primary care provider, please follow up with them.) [facility] – [place] [facility], [place] [Provider Group] (Call to establish and follow up with a primary care provider. If you already have a primary care provider, please follow up with them.) [facility] – [place] [facility],[place] [Provider Group] (Call to establish and follow up with a primary care provider. If you already have a primary care provider, please follow up with them.) [facility] [Provider Group] (Call to establish and follow up with a engineering specialist. Llame para establecer y hacer un seguimiento con un especialista en [place] vertebral.) Stand Alone Forms: Work/School Release Interventions: ED Discharge Assessment Last Done: 04/17/23 07:10 Discharge Date/Time: 04/17/23 07:18 Print Language: Frisian
[2023-04-17] MEDS: NaPROXEN 500 MG TABLET PO (07:04)
[2023-04-17] MEDS: Cyclobenzaprine HCl 5 MG TABLET PO (07:08)
--- NOTE | 2023-04-17 07:11 | PC.NURSE ---
Discharge instructions reviewed with patient who verbalized understanding
== END 2023-04-17 07:18 | disposition home or self-care (01) ==
PROVIDERS: Emergency Provider Emergency Medicine Emergency Medical Services
DX: M54.50 Low back pain, unspecified (principal)
CPT/HCPCS: 99283

== ENCOUNTER 2023-05-01 05:44 | Emergency (ER) | payer MEDICAID, SELFPAY ==
--- NOTE | ~2023-05-01 | XR_ITS ---
EXAMINATION: XR LUMBOSACRAL SPINE CLINICAL INFORMATION: Low back pain COMPARISON: None available. TECHNIQUE: Three views of the lumbosacral spine. FINDINGS: The vertebral bodies and posterior elements are normal. The disc spaces are preserved and the vertebral alignment is normal. The paraspinal soft tissues are normal. XR/XR lumbar spine 2-3V IMPRESSION: Unremarkable lumbar spine examination.
[2023-05-01 05:50] VITALS: BP 105/57; PULSE 78; RESP 12; TEMP 36.5; O2SAT 97; BMI 25.8
[2023-05-01 06:08] LABS: Appearance Urine Clear; Color Urine Yellow; Glucose Urine UA Negative (Negative); Leukocyte Esterase Urine Negative (Negative); Nitrite Urine Negative (Negative); PH 6.5 (5.0-9.0); Specific Gravity - Urine >= 1.030 (1.005-1.025); Urine Blood Negative (Negative); Urine Ketones Negative (Negative); Urine Protein Negative (Neg-Trace)
[2023-05-01 07:46] VITALS: BP 113/62; PULSE 68; RESP 20; TEMP 36.7; O2SAT 98
--- NOTE | 2023-05-01 07:46 | ED_ITS ---
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 Denies pain currently. Patient reports he has had chronic lumbar pain for around 1 year but states the pain has never radiated towards his flank before. Denies any dysuria, hematuria or other urinary symptoms. 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 He used Flexeril and naproxen which were previously prescribed to him and states that his pain improved. He denies any radiation of pain to his lower extremities, denies any numbness or tingling to his lower extremities. He denies any saddle anesthesia or bowel or bladder incontinence. Denies any fevers. Denies any abdominal pain, nausea, vomiting, diarrhea or constipation. Denies any cough or shortness of breath. Denies any falls or other trauma. MD complaint: Lumbar pain Onset (ago): day(s) Location: back Radiation: flank (left) Severity: severe Quality: aching Pain Consistency: colicky Relieving factors: rest Exacerbating factors: movement Associated symptoms: denies other symptoms Treatments prior to arrival: NSAID and other (Flexeril) Related Data Previous Rx's Medication Instructions Recorded cyclobenzaprine 10 mg tablet 10 mg PO Q8H PRN Muscle spasm #14 05/03/22 tabs naproxen 500 mg tablet 500 mg PO BID PRN pain #14 tabs 05/03/22 lidocaine HCl 2 % mucosal solution 1.2 ml mucous membrane BID #100 mL 11/14/22 (Lidocaine Viscous) amoxicillin 875 mg-potassium 1 tab PO Q12H #20 tabs 11/15/22 clavulanate 125 mg tablet ibuprofen 600 mg tablet 600 mg PO Q8H PRN fever or pain 11/15/22 #14 tabs ondansetron 4 mg disintegrating 4 mg PO Q6-8H PRN nausea and 12/14/22 tablet vomiting #14 tabs amoxicillin 875 mg-potassium 1 tab PO BID #14 tabs 02/12/23 clavulanate 125 mg tablet cyclobenzaprine 5 mg tablet 5 mg PO TID PRN muscle spasm 7 04/17/23 days #21 tabs naproxen 500 mg tablet 500 mg PO BID 7 days #14 tabs 04/17/23 cyclobenzaprine 5 mg tablet 5 mg PO TID PRN muscle spasm #12 05/01/23 tabs lidocaine 5 % topical patch 1 patch topical DAILY #15 ea 05/01/23 Allergies Allergy/AdvReac Type Severity Reaction Status Date / Time No Known Allergies Allergy Verified 05/01/23 05:49 Review of Systems Review of Systems: As per HPI. Yes all other systems are reviewed and are negative Constitutional: Constitutional: Reports as per HPI [facility] Social History Social History Alcohol intake: never Advance Directives: No Advance Directives Information Provided: No Physical Exam ED Vital Signs: Vital Signs - 24 hr 05/01/23 05:50 05/01/23 07:46 Temperature 97.7 F 98.1 F Pulse Rate 78 68 Respiratory Rate 12 20 Blood Pressure 105/57 L 113/62 Pulse Oximetry 97 98 Oxygen Delivery Method Room Air Room Air BMI result Body Mass Index 25.8 Vital signs have been reviewed and appear to be correct. Blood pressure normal. Heart rate normal. Respiratory rate normal. Temperature normal. Oxygen saturation normal. Const General: cooperative, healthy appearing and no acute distress Orientation/consciousness: oriented to person, oriented to place, oriented to time and patient oriented x3 Limitations: no limitations [facility] Head: Yes normocephalic and Yes atraumatic Ears: external ears normal General nose exam: Normal external nose present Face and sinus: Yes face symmetric Mouth: oropharynx normal and moist mucous membranes Throat: Yes uvula midline Eyes Pupils: Equal, round and reactive pupils present Neck Neck: Yes normal visual inspection and Yes supple Resp Effort & Inspection: normal respiratory effort and able to speak in complete sentences Auscultation: clear to auscultation bilaterally Cardio Rate: regular rate Rhythm: regular rhythm Heart sounds: S1 normal heart sound present and S2 normal heart sound present GI Palpation (GI): Soft to palpation and nontender Auscultation: normoactive bowel sounds General: Yes no CVA tenderness Back/Spine/Pelvis Back: no CVA tenderness Cervical Spine: No Cervical spine tenderness Thoracic/Lumbar Spine: thoracic and lumbar spine normal to inspection, thoraco- lumbar ROM normal, straight leg raise negative bilaterally, No thoracic spinal tenderness and No lumbar spinal tenderness Pelvis: no pain with anterior-posterior compression and no pain with lateral compression Skin General skin exam: elasticity normal and turgor normal Neuro General: oriented to person, oriented to place, oriented to time, patient oriented x3, moves all extremities, no focal motor deficits and CN's II-XI intact bilaterally Cranial nerves: Yes Equal, round and reactive pupils present Cognition (Neuro): normal cognition Extrem General: Yes full ROM, Yes no pedal edema and Yes no calf tenderness Psych Mental Status: mental status grossly normal Affect: normal affect Thought process: Normal thought process present Medical Decision Making Medical Decision Making [facility] Narrative: Patient is a 28-year-old male with history of lumbar strain and lumbar radiculopathy presenting to the emergency department with left lumbar pain which yesterday began radiating towards his left flank area. On exam patient is awake, A+Ox3, normal neurological exam without focal deficits, LS CTA, abdomen is soft and nontender, no CVA tenderness, full ROM to lumbar spine and 5/5 strength bilateral lower extremities. Given history and physical exam findings, likely lumbar strain, no evidence of lumbar radiculopathy. Considered UTI/pyelo nephritis given report of radiation to flank however UA negative for signs of infection. Lumbar x-ray negative for fracture. Will prescribe cyclobenzaprine as well as lidocaine patches, advised patient he can use Tylenol and ibuprofen. Instructed patient to follow-up with PCP as he will likely require physical therapy given the ongoing nature of his symptoms. Return precautions and red flag symptoms discussed at bedside. Patient verbalized understanding of agreement with plan. Differential Diagnosis Differential Diagnoses: The differential diagnosis associated with the presentation includes As above. Lab Data [facility] Lab Attestation statement: I reviewed the patient's lab results. Labs: Lab Results 05/01/23 Range/Units 06:02 Urine Color Yellow Urine Appearance Clear Urine pH 6.5 (5.0-9.0) Ur Specific [place] >= 1.030 H (1.005-1.025) Urine Protein Negative (Neg-Trace) mg/dL Urine Glucose (UA) Negative (Negative) mg/dL Urine Ketones Negative (Negative) mg/dL Urine Blood Negative (Negative) Urine Nitrite Negative (Negative) Ur Leukocyte Esterase Negative (Negative) Independent Interpretation I performed an independent interpretation of an: Plain X-Ray Interpretation: I independently reviewed the x-ray and agree with the radiologist's interpretation. Radiology Impression Discussion of test interpretation with radiology: I have reviewed the radiologist's reading. Radiologist Impression: XR/XR lumbar spine 2-3V IMPRESSION: Unremarkable lumbar spine examination. External Record Review External record reviewed: Inpatient record, Office record and Outpatient record Prescription Management I considered prescription management with: Pain Medication Discharge Plan Discharge Clinical Impression: Strain of lumbar region Patient Disposition: Home, Self-Care Instructions: Low Back Strain (ED), Acute Low Back Pain (ED), R.I.C.E. Treatment (ED), Lower Back Exercises (ED) Additional Instructions: You were evaluated in the emergency department today for back pain. Your evaluation did not show signs of medical conditions requiring emergent intervention at this time. We recommended that you use ibuprofen or Tylenol per package directions every 6 hours as needed for pain. If necessary, you can alternate these medications so that you take one medication every 3 hours. For instance, at noon take ibuprofen, then at 3:00 p.m. take Tylenol, then at 6:00 p.m. take ibuprofen. You have been prescribed a muscle relaxer which you may take every 8 hours as needed for spasms. You have been prescribed 5% topical lidocaine patches which you can wear for up to 12 hours in a 24 hour period. Do not apply heat directly over the patches. Please schedule an appointment for follow-up with your primary care physician this week for further evaluation of your symptoms. Return to the emergency department if you experience worsening back pain, difficulty walking, fevers, numbness, tingling, incontinence, groin numbness or tingling, or any other concerning symptoms. Prescriptions: New cyclobenzaprine 5 mg tablet 5 mg PO TID PRN (Reason: muscle spasm) Qty: 12 0RF lidocaine 5 % adhesive patch,medicated 1 patch topical DAILY Qty: 15 0RF Rx Instructions: leave on most painful area for up to 12 hrs No Action lidocaine HCl [Lidocaine Viscous] 2 % solution 1.2 ml mucous membrane BID Qty: 100 0RF amoxicillin-pot clavulanate 875-125 mg tablet 1 tab PO Q12H Qty: 20 0RF ibuprofen 600 mg tablet 600 mg PO Q8H PRN (Reason: fever or pain) Qty: 14 0RF naproxen 500 mg tablet 500 mg PO BID PRN (Reason: pain) Qty: 14 0RF cyclobenzaprine 10 mg tablet 10 mg PO Q8H PRN (Reason: Muscle spasm) Qty: 14 0RF ondansetron 4 mg tablet,disintegrating 4 mg PO Q6-8H PRN (Reason: nausea and vomiting) Qty: 14 0RF amoxicillin-pot clavulanate 875-125 mg tablet 1 tab PO BID Qty: 14 0RF cyclobenzaprine 5 mg tablet 5 mg PO TID PRN (Reason: muscle spasm) 7 Days Qty: 21 0RF naproxen 500 mg tablet 500 mg PO BID 7 Days Qty: 14 0RF Stand Alone Forms: Work/School Release
== END 2023-05-01 08:18 | disposition home or self-care (01) ==
PROVIDERS: Emergency Provider Emergency Medicine
DX: S39.012A Strain of muscle, fascia and tendon of lower back, initial encounter (principal); X50.1XXA Overexertion from prolonged static or awkward postures, initial encounter; Y93.89 Activity, other specified; Y92.019 Unspecified place in single-family (private) house as the place of occurrence of the external cause; Y99.9 Unspecified external cause status
CPT/HCPCS: 72100; 81003; 99283

== ENCOUNTER 2023-05-10 08:21 | Emergency (ER) | payer MEDICAID, SELFPAY ==
[2023-05-10 08:27] VITALS: BP 120/76; PULSE 77; RESP 18; TEMP 36.2; O2SAT 97; BMI 25.8
--- NOTE | 2023-05-10 09:14 | ED_ITS ---
HPI - Back Pain/Injury General Chief Complaint: Back Pain/Injury Stated Complaint: Back Pain Time Seen by Provider: 05/10/23 09:12 Source: patient Mode of arrival: ambulatory Limitations: no limitations History of Present Illness HPI Narrative: This is a 28-year-old male presenting to the emergency department for re- evaluation of left lower back pain, without radiation, patient is constant in nature, worse with movement better at rest. Patient reports he has been seen here multiple times for the same complaint. Taking tordol and using lidoderm patches with good relief of pain. He tells me he is here because he would like a work note stating that he cannot participate in any heavy lifting he went in today they made him lift and they told him if he cant lift he needs a doctors note. Patient reports his back pain is unchanged has not yet seen a specialist. Denies fevers, chills, chest pain, shortness of breath, nausea, vomiting, abdominal pain, numbness, tingling, urinary incontinence/retention, saddle paresthesias, weakness. Still has pain medicine left. Related Data Previous Rx's Medication Instructions Recorded cyclobenzaprine 10 mg tablet 10 mg PO Q8H PRN Muscle spasm #14 05/03/22 tabs naproxen 500 mg tablet 500 mg PO BID PRN pain #14 tabs 05/03/22 lidocaine HCl 2 % mucosal solution 1.2 ml mucous membrane BID #100 mL 11/14/22 (Lidocaine Viscous) amoxicillin 875 mg-potassium 1 tab PO Q12H #20 tabs 11/15/22 clavulanate 125 mg tablet ibuprofen 600 mg tablet 600 mg PO Q8H PRN fever or pain 11/15/22 #14 tabs ondansetron 4 mg disintegrating 4 mg PO Q6-8H PRN nausea and 12/14/22 tablet vomiting #14 tabs amoxicillin 875 mg-potassium 1 tab PO BID #14 tabs 02/12/23 clavulanate 125 mg tablet cyclobenzaprine 5 mg tablet 5 mg PO TID PRN muscle spasm 7 04/17/23 days #21 tabs naproxen 500 mg tablet 500 mg PO BID 7 days #14 tabs 04/17/23 cyclobenzaprine 5 mg tablet 5 mg PO TID PRN muscle spasm #12 05/01/23 tabs lidocaine 5 % topical patch 1 patch topical DAILY #15 ea 05/01/23 Allergies Allergy/AdvReac Type Severity Reaction Status Date / Time No Known Allergies Allergy Verified 05/10/23 08:31 Review of Systems Review of Systems: Constitutional : No Weight loss, No Fever, No Chills, ENT/Mouth : No Hearing loss, No Ear Pain, No Nasal Congestion, No Sinus Pain, No Hoarseness, No sore throat, No Rhinorrhea, No Swallowing Difficulty Cardiovascular : No Chest Pain, No SOB Respiratory : No Cough, No Dyspnea Gastrointestinal : No Nausea, No Vomiting, No Diarrhea, No abdominal Pain, No Hematochezia, No Melena Genitourinary : No Dysuria, No Urinary Frequency, No Hematuria, No Urinary Incontinence, Musculoskeletal : positive back pain Skin : No Skin Lesions, No rash Neuro : No Weakness, No Numbness, No Paresthesias, no loss of bowel or bladder incontinence, no saddle anesthesia Yes all other systems are reviewed and are negative [facility] Past Medical History Attestation statement: The following information was validated with the patient. Source: old records reviewed and nursing notes reviewed Social History Social History Alcohol intake: never Advance Directives: No Advance Directives Information Provided: Yes Physical Exam Vital Signs: Vital Signs: Last Vital Signs Temp 97.1 F 05/10/23 08:27 Pulse 77 05/10/23 08:27 Resp 18 05/10/23 08:27 BP 120/76 05/10/23 08:27 Pulse Ox 97 05/10/23 08:27 O2 Del Method Room Air 05/10/23 08:27 BMI result Body Mass Index 25.8 vss Appearance: Alert.? Oriented X3.? No acute distress.? Head: Normocephalic, atraumatic, no step-offs or deformities Eyes: Pupils equal, round and reactive to light.? ENT: Pharynx normal.? Neck: Normal inspection.? Neck supple.? CVS: Normal heart rate and rhythm.? Pulses normal.? Respiratory: No respiratory distress.? Breath sounds normal.? Abdomen: Soft and nontender.? Skin: Skin warm and dry.? Normal skin color.? Normal skin turgor.? Extremities: No lower extremity edema.? No calf ttp. 5/5 strength to bilateral upper and lower extremities Back: No midline tenderness, no C-spine tenderness, full range of motion, no CVA tenderness bilaterally Neuro: Oriented X 3.? No motor deficit.? No sensory deficit. CN 2-12 intact . Ambulating with steady gait normal coordination. No saddle paresthesias Medical Decision Making Medical Decision Making [facility] Narrative: 0916 28-year-old presents with left lower back pain for the past few weeks, atraumatic. Physical exam left lumbar paraspinous tenderness. No saddle paresthesias. Ambulating with steady gait normal coordination. Neuro nonfocal. Likely lumbar strain or lumbar paraspinous spasm. Unlikely cauda equina, epidural abscess with cord compression. Plan- dc home with spine and sport. Doesnt need pain meds at this time. Differential Diagnosis Differential Diagnoses: The differential diagnosis associated with the presentation includes Likely lumbar strain or lumbar paraspinous spasm. Unlikely cauda equina, epidural abscess with cord compression. Admission/Observation Consideration of admission/observation: Escalation of care including admission/observation considered Not indicated Tests considered The following testing was considered but not selected: Imaging not indicated, atraumatic no red flag sx Core Measures AMI core measures followed: Yes Measure exclusions: not indicated Critical Care Time Critical Care Time Critical Care Time: No Discharge Plan Discharge Clinical Impression: Back pain Patient Disposition: Home, Self-Care Instructions: Back Pain (ED) Additional Instructions: Take your medications as prescribed. If you were prescribed antibiotics today, it is important that you take your medication to their entirety, do not skip any doses, do not finish them early. Follow-up with your primary care provider this week. Return to the emergency department with new or worsening symptoms. Such as fevers, chills, chest pain, shortness of breath, nausea, vomiting, dizziness, headache, vision changes, lethargy In case of emergency call 911 Prescriptions: No Action lidocaine HCl [Lidocaine Viscous] 2 % solution 1.2 ml mucous membrane BID Qty: 100 0RF amoxicillin-pot clavulanate 875-125 mg tablet 1 tab PO Q12H Qty: 20 0RF ibuprofen 600 mg tablet 600 mg PO Q8H PRN (Reason: fever or pain) Qty: 14 0RF naproxen 500 mg tablet 500 mg PO BID PRN (Reason: pain) Qty: 14 0RF cyclobenzaprine 10 mg tablet 10 mg PO Q8H PRN (Reason: Muscle spasm) Qty: 14 0RF ondansetron 4 mg tablet,disintegrating 4 mg PO Q6-8H PRN (Reason: nausea and vomiting) Qty: 14 0RF amoxicillin-pot clavulanate 875-125 mg tablet 1 tab PO BID Qty: 14 0RF cyclobenzaprine 5 mg tablet 5 mg PO TID PRN (Reason: muscle spasm) 7 Days Qty: 21 0RF naproxen 500 mg tablet 500 mg PO BID 7 Days Qty: 14 0RF cyclobenzaprine 5 mg tablet 5 mg PO TID PRN (Reason: muscle spasm) Qty: 12 0RF lidocaine 5 % adhesive patch,medicated 1 patch topical DAILY Qty: 15 0RF Rx Instructions: leave on most painful area for up to 12 hrs Referrals: [facility] [Provider Group] - 2 days Stand Alone Forms: Work/School Release
== END 2023-05-10 09:45 | disposition home or self-care (01) ==
PROVIDERS: Emergency Provider Emergency Medicine
DX: M54.50 Low back pain, unspecified (principal)
CPT/HCPCS: 99282

== ENCOUNTER 2023-06-05 11:18 | Outpatient (AMB) | payer OTHER, SELFPAY ==
[2023-06-05 11:21] VITALS: BP 112/60; BMI 26.8
--- NOTE | 2023-06-05 11:21 | MHC.PC.OV ---
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 Past medical history significant for GERD, low back pain and seasonal allergies. Patient reports was seen in the emergency room the beginning of this month for back pain, lumbar spine x-ray completed in April. Patient reports he stooled a needed to establish care the with PCP for referral to physical therapy. Patient denies low back pain at this time but reports it is usually left-sided low back pain relieved by Lidoderm patches, naproxen. Patient denies any radiculopathy symptoms or numbness or tingling in the lower extremity. Denies bowel or bladder issues. Refill sent on Lidoderm patches on referral placed to physical therapy. Patient also reports previously on omeprazole for GERD and states his past PCP was going to refer him to a specialist for his GERD. previous pcp: Dr. Vasquez in [facility]. [facility] Surgical History (Updated 06/05/23 @ 11:24 by MELECIO Cazares) No pertinent past surgical history Family History (Updated 06/05/23 @ 11:25 by MELECIO Cazares) Mother Hypertension Father Diabetes Social History (Updated 06/05/23 @ 11:26 by MELECIO Cazares) Housing: Apartment Alcohol intake: never Patient Tobacco Use Status: Never used Tobacco e-Cigarette/Vaping Use: Never Used Second Hand Smoke Exposure: No service: No Current occupational status: employed Current occupational exposures/hazards: No Cognitive needs: No Hearing needs: No Vision needs: Yes Questionnaire PHQ-9 Over the last 2 weeks, how often have you been bothered by any of the following problems? 1. Little interest or pleasure in doing things: not at all 2. Feeling down, depressed, or hopeless: not at all 3. Trouble falling or staying asleep, or sleeping too much: not at all 4. Feeling tired or having little energy: not at all 5. Poor appetite or overeating: not at all 6. Feeling bad about yourself - or that you are a failure or have let yourself or your family down: not at all 7. Trouble concentrating on things, such as reading the newspaper or watching television: not at all 8. Moving or speaking so slowly that other people could have noticed. Or the opposite - being so fidgety or restless that you have been moving around a lot more than usual: not at all 9. Thoughts that you would be better off or of hurting yourself in some way: not at all Total score: 0 Source: Developed by Drs. Oliver Petersen, Isabell Zeng, Hong Holloway and colleagues, with an educational rohini from [employer]. Thrive Questionnaire Date Thrive assessed: 06/05/23 I am a: Patient What is your living situation today?: I have a steady place to live Within the past 12 months, did the food you bought not last and you didn't have the money to get more?: Never true Within the past 12 months, did you worry whether your food would run out before you got money to buy more?: Never true Do you have trouble paying for medicines?: No Do you have trouble getting transportation to medical appointments?: No Do you have trouble paying your heating and electricity bill?: No Do you have trouble taking care of your child, family member or friend?: No Do you have trouble with day-to-day activities such as bathing, preparing meals, shopping, managing finances, etc.?: No Are you currently unemployed and looking for a job?: No Are you interested in more education?: No Please select the resources that you would like help with: None AUDIT C Alcohol Use Questionnaire (AUDIT-C) 1. How often do you have a drink containing alcohol?: Never Total Score: 0 JOHNNY-7 AMB Questionnaire JOHNNY-7 Date JOHNNY - 7 assessed: 06/05/23 Feeling nervous, anxious, or on edge: 0 = Not at all Not being able to stop or control worryin = Not at all Worrying too much about different things: 0 = Not at all Trouble relaxin = Not at all Being so restless that it is hard to sit still: 0 = Not at all Becoming easily annoyed or irritable: 0 = Not at all Feeling afraid as if something awful might happen: 0 = Not at all Total JOHNNY-7 score (0-4 normal; 5-9 mild; 10-14 moderate; 15-21 severe): 0 Source: Developed by Drs. Oliver Petersen, Isabell Zeng, Hong Holloway and colleagues, with an educational rohini from [employer]. Review of Systems Const Denies chills, Denies fatigue, Denies fever(s) and Denies poor appetite Eyes Denies no additional complaints Card Denies chest pain, Denies syncope, Denies rapid heart rate and Denies dyspnea Resp Denies cough and Denies dyspnea GI Denies change in stool character, Denies constipation, Denies diarrhea, Denies nausea and Denies vomiting Denies dysuria, Denies urinary frequency and Denies urinary urgency Musc Reports back pain Neuro Denies syncope Endo Denies fatigue Physical exam (Primary Care) Vital Signs: Last Vital Signs BP 112/60 06/05/23 11:21 BMI result Body Mass Index 26.8 Tobacco/Smoking Status: Tobacco use Status Tobacco use date assessed 06/05/23 06/05/23 11:25 Patient Tobacco Use Status Never used Tobacco 06/05/23 11:26 e-Cigarette/Vaping Use Never Used 06/05/23 11:26 PHQ-9: PHQ-9 Score PHQ-9: Total score 0 06/05/23 11:27 Thrive Assessment: Date of Thrive Assessment Date Thrive assessed 06/05/23 06/05/23 11:27 Const General: cooperative and no acute distress Orientation/consciousness: patient oriented x3 HENMT Head: Yes normocephalic and Yes atraumatic Eyes Conjunctivae: conjunctivae normal Chest Chest palpation & inspection: normal inspection of the chest Resp Effort & Inspection: normal respiratory effort Auscultation: clear to auscultation bilaterally, no crackles, no rhonchi and no wheezes Cardio Rate: regular rate Rhythm: regular rhythm Heart sounds: S1 normal heart sound present and S2 normal heart sound present GI Inspection: Yes normal to inspection Back/Spine/Pelvis Cervical Spine: normal cervical lordosis Thoracic/Lumbar Spine: thoracic and lumbar spine normal to inspection and paraspinal muscle tenderness on the left Pelvis: no pain with anterior-posterior compression Neuro General: patient oriented x3 Extrem General: No edema Assessment and Plan Assessment & Plan (1) Lumbar back pain: Code(s): M54.50 - Low back pain, unspecified Plan: Refill sent on Lidoderm patches, can use [id number] Tylenol or ibuprofen as needed for pain. Lumbar spine x-ray unremarkable April 2023. Referral entered to physical therapy (2) Seasonal allergies: Code(s): J30.2 - Other seasonal allergic rhinitis Plan: loratadine 10 mg daily sent to patients pharmacy. (3) GERD (gastroesophageal reflux disease): Code(s): K21.9 - Gastro-esophageal reflux disease without esophagitis Plan: Omeprazole 20 mg daily prescribed. Referral entered to gastroenterology Plan Follow-up in 6 months for physical exam Orders: Orders PT Evaluation and Treatment Today M54.50 - Low back pain, unspecified Cholesterol Today Z13.220 - Encounter for screening for lipoid disorders Comprehensive [place]. Panel Fast Today Z13.1 - Encounter for screening for diabetes mellitus TSH reflex Free T4 Today Z13.29 - Encounter for screening for other suspected endocrine disorder Referrals Gastroenterology Referral K21.9 - Gastro-esophageal reflux disease without esophagitis Ophthalmology Referral Z01.00 - Encounter for examination of eyes and vision without abnormal findings Medications: New omeprazole 20 mg PO DAILY 30 tabs 3RF K21.9 - Gastro-esophageal reflux disease without esophagitis lidocaine 5% (Lidoderm) leave on most painful area for up to 12 hrs 1 patch topical DAILY 15 ea 0RF M54.50 - Low back pain, unspecified loratadine (Allergy Relief (loratadine)) 10 mg PO DAILY 30 tabs 3RF J30.2 - Other seasonal allergic rhinitis Coding Level of Care Code New Pt Level 4 (61317) Diagnoses Lumbar back pain M54.50 Seasonal allergies J30.2 GERD (gastroesophageal reflux disease) K21.9
== END 2023-06-05 11:55 | disposition home or self-care (01) ==
PROVIDERS: Visit Provider Nurse Practitioner Family
DX: M54.50 Low back pain, unspecified (principal); J30.2 Other seasonal allergic rhinitis; K21.9 Gastro-esophageal reflux disease without esophagitis
CPT/HCPCS: 99204

== ENCOUNTER 2023-06-14 06:53 | Outpatient (REF) | payer OTHER, SELFPAY ==
[2023-06-14 10:51] LABS: Alanine Aminotransferase 20 U/L (0-40); Albumin Level 4.1 g/dL (3.5-5.0); Alkaline Phosphatase 52 U/L (39-117); Anion Gap 10 (12-20); Aspartate Amino Transferase 16 U/L (5-37); Bilirubin Total 0.3 mg/dL (0.0-1.0); Blood Urea Nitrogen 11 mg/dL (9-16); Calcium 9.2 mg/dL (8.4-10.2); Carbon Dioxide 28 mmol/L (22-29); Chloride 106 mmol/L (96-108); Cholesterol 116 mg/dL; Estimated Glomerular Filt Rate > 60; Glucose Fasting 84 mg/dL (60-99); Potassium 3.9 mmol/L (3.3-5.1); Sodium 140 mmol/L (135-145); Total Protein 7.6 g/dL (6.5-8.0)
[2023-06-14 11:12] LABS: TSH reflex Free T4 1.09 uIU/mL (0.32-4.0)
== END 2023-06-14 06:54 | disposition home or self-care (01) ==
LOC: HO.LAB 06:53
PROVIDERS: PCP Nurse Practitioner Family; Visit Provider Nurse Practitioner Family
DX: Z13.1 Encounter for screening for diabetes mellitus (principal); Z13.29 Encounter for screening for other suspected endocrine disorder; Z13.220 Encounter for screening for lipoid disorders
CPT/HCPCS: 36415; 80053; 82465; 84443

== ENCOUNTER 2023-07-27 15:00 | Outpatient (RCR) | payer OTHER, SELFPAY ==
--- NOTE | 2023-07-03 16:22 | MHC.PT.EP ---
[facility] [place] Office [place] Office [place] Office [address] Radha Perdomo [address] [phone] F: [phone] F: [phone] F: [phone] F: [phone] Physical Therapy Plan of Care Date of Evaluation: Date of Surgery: Diagnosis: low back pain Assessment: Patient is a pleasant 28 y.o. English speaking male who is referred to PT by Farhana Lyle NP with Dx of low back pain. PT diagnosis is chronic L sided LBP, mechanical dysfunction due to poor body and lifting mechanics at work. Patient impairments include pain, poor posture, poor body and lifting mechanics, and tight and limited ROM in bilateral hips. Patient current functional limitations are lifting at work, bending, twisting, carrying groceries. Patient will benefit from skilled PT to address aforementioned impairments and functional limitations to meet established goals. Frequency and Duration: The patient will be seen 1x/week for 4 weeks Short Term Goals: 2 weeks Patient demonstrates consistency and independence with HEP to self manage chronic symptoms. Patient is able to demonstrate proper bending and lifting mechanics with crate floor to waist lift without cues. Shelter Goals: 4 weeks Patient presents with increased bilateral hip flexion strength 5/5 to be able to lift and carry groceries. Patient demonstrates ability to lift 30# floor to waist with proper mechanics to mimic work tasks. Treatment Plan: Modalities to reduce pain, spasms and effusion. Manual therapy to restore motion and function. Therapeutic exercise to improve strength and flexibility. Neuromuscular re-education for posture and balance. Therapeutic activities to return to functional activities of daily living. Electronically signed by: Camille White, PT, DPT Please sign and return to therapist. Thank you for your referral.
--- NOTE | 2023-07-27 18:03 | MHC.PT.DC ---
[facility] [place] Office [place] Office [place] Office [address] Radha Perdomo [address] [phone] F: [phone] F: [phone] F: [phone] F: [phone] Physical Therapy Discharge Report Diagnosis: low back pain Date of Surgery: Date of Evaluation: 07/03/23 Date of Discharge: 07/27/23 Treatments to Date: 3 Cancellations to Date: No Shows to Date: Discharge Status: Achieved Goals Improved Function Independent with HEP Discharge Summary: He does not have pain with lumbar AROM and shows proper form with lifting floor to waist without needing cues for form. He reports he feels ready for discharged, was given printed HEP handout to manage any lumbar symptoms intermission coordinator. His is discharged from PT at this time. Electronically signed by: Camille White, PT, DPT Please sign and return to therapist. Thank you for your referral.
== END 2023-07-27 18:03 | disposition home or self-care (01) ==
LOC: HO.PT 15:00
PROVIDERS: PCP Internal Medicine; Visit Provider Nurse Practitioner Family
DX: M54.50 Low back pain, unspecified (principal)
CPT/HCPCS: 97110; 97161; 97530

== ENCOUNTER 2023-08-04 14:13 | Outpatient (REF) | payer OTHER, SELFPAY | END 2023-08-04 14:14 | disposition home or self-care (01) | LOC: HO.LNP 14:13 | PROVIDERS: PCP Nurse Practitioner Family; Visit Provider Nurse Practitioner | DX: K21.9 Gastro-esophageal reflux disease without esophagitis (principal); R11.0 Nausea; Z79.899 Other long term (current) drug therapy | CPT/HCPCS: 87338 ==

== ENCOUNTER 2023-08-04 14:13 | Outpatient (AMB) | payer OTHER, SELFPAY ==
[2023-08-04 14:15] VITALS: BP 118/71; PULSE 77; BMI 26.8
--- NOTE | 2023-08-04 14:15 | MHC.OFFVIS ---
Intake Vital Signs 08/04/23 14:15 Height 5 ft 10 in Weight 186 lb 15.232 oz BMI 26.8 BP 118/71 Blood Pressure Location Lt brachial Position Sitting Pulse 77 Intake Visit Reasons: Gastroesophageal reflux disease (GERD) Intake Note: Patient presents to in office visit today as a new patient for GERD. CC: Patient c/o acid reflux, heartburn, waking up d/t reflux. Denies other GI symptoms today. 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 She is [place] Farhana L[place] [facility] [place]. PMX Allergic rhinitis GERD Low back pain * SURGICAL HISTORY Pt denies * ALLERGIES: NKDA * [id number] LABS: Laboratory Tests 12/14/22 12/14/22 06/14/23 00:05 00:05 08:17 WBC 10.3 Hgb 14.0 Hct 42.6 Estimated GFR > 60 Total Bilirubin 0.3 Direct Bilirubin < 0.2 AST ALT Alkaline Phosphata se TSH 06/14/23 08:17 WBC Hgb Hct Estimated GFR Total Bilirubin Direct Bilirubin AST 16 ALT 20 Alkaline Phosphata se 52 TSH 1.09 TODAY'S VISIT Japanese #Lady Live The problem started 3 years ago and it keeps getting worse. He has had no prior work up, apparently he had insurance lapses and employment changes. He has had no education about GERD diet and lifestyle changes, and the only medication he was given was omeprazole; at first 10mg then 20mg. It is worse at night when he lays down and he feels acid brash coming up like vomit. He can not ID any medication changes or diet changes/illness preceding this. He rarely takes NSAIDS. He denies any abd pain. He denies any CIC or diarrhea. His mother also has GERD and takes omeprazole. There is no known FHX of stomach or esophageal cancer. He denies dysphagia. He has a.m. nausea but will dry he and only spit-up what he describes as ?acid. ? Printed GERD diet and lifestyle, discussed raising HOB, will increase o2o to 40mg qd and add famotidine qhs. Ordering HP stool, US of GB, barium swallow, and EGD. ROV 3 weeks. [facility], [facility] Surgical History No pertinent past surgical history Family History Mother Hypertension Father Diabetes Social History Housing: Apartment Alcohol intake: never Patient Tobacco Use Status: Never used Tobacco e-Cigarette/Vaping Use: Never Used Second Hand Smoke Exposure: No service: No Current occupational status: employed Current occupational exposures/hazards: No Cognitive needs: No Hearing needs: No Vision needs: Yes Review of Systems Const Denies fatigue, Denies fever(s), Denies night sweats, Denies poor appetite and Denies weight loss ENT Reports Normal hearing present, Denies dysphagia, Denies odynophagia, Denies throat swelling and Denies tongue swelling Card Reports no additional complaints Resp Reports no additional complaints GI Denies abdominal pain, Denies melena, Denies bloating, Denies hematochezia, Denies constipation, Denies GI cramping, Denies dysphagia, Denies excessive flatus, Denies early satiety, Reports heartburn, Denies diarrhea, Reports nausea, Denies odynophagia, Denies vomiting and Denies hematemesis Skin/Breast Denies pruritus, Denies lesions, Denies rash and Denies jaundice Neuro Reports Normal hearing present and Denies Abnormal speech present Endo Denies fatigue Aller/Immun Denies throat swelling and Denies tongue swelling Physical Exam Vital Signs: Last Vital Signs Pulse 77 08/04/23 14:15 BP 118/71 08/04/23 14:15 BMI result Body Mass Index 26.8 Const General: cooperative, no acute distress, well developed and well groomed Nutritional Appearance: well nourished and overweight Orientation/consciousness: oriented to person, oriented to place and oriented to time Limitations: language barrier HEENT Head: Yes normocephalic and Yes atraumatic Eyes General: appearance normal, both eyes and all related structures Pupils: Equal, round and reactive pupils present Neck Neck: Yes normal visual inspection and Yes no lymphadenopathy Thyroid: Thyroid normal Resp Effort & Inspection: normal respiratory effort and able to speak in complete sentences Auscultation: clear to auscultation bilaterally Cardio Rate: regular rate Rhythm: regular rhythm Heart sounds: Normal, physiologic split S2 sound present Peripheral pulses: radial pulses present and posterior tibial pulses present GI Inspection: No distended, No Abdominal panniculus present and Yes obesity Palpation (GI): Soft to palpation, nontender, no guarding, not rigid and No hepatosplenomegaly present Percussion: Yes normal to percussion Auscultation: normal bowel sounds Rectal Exam - Male: Yes deferred Skin Other: multiple tattoos General skin exam: no rashes or lesions noted, turgor normal, skin not dry, no jaundice, No spider nevi and no striae Rashes: no rashes Nails: normal Neuro General: oriented to person, oriented to place and oriented to time Cranial nerves: Yes Equal, round and reactive pupils present and Yes Normal hearing present Speech: No Abnormal speech present Extrem General: Yes normal to inspection, No clubbing, No cyanosis and No edema Psych Appearance: grossly normal and well kempt Mental Status: mental status grossly normal Speech and movement: Normal speech and movement present Affect: normal affect Attitude: cooperative Thought process: Normal thought process present and not confabulating Thought content: Normal thought content present Insight: Limited insight present (Psych) Judgement: Limited judgement present (Psych) Assessment & Plan Assessment & Plan (1) GERD (gastroesophageal reflux disease): Code(s): K21.9 - Gastro-esophageal reflux disease without esophagitis Plan: Japanese #Lady Live The problem started 3 years ago and it keeps getting worse. He has had no prior work up, apparently he had insurance lapses and employment changes. He has had no education about GERD diet and lifestyle changes, and the only medication he was given was omeprazole; at first 10mg then 20mg. It is worse at night when he lays down and he feels acid brash coming up like vomit. He can not ID any medication changes or diet changes/illness preceding this. He rarely takes NSAIDS. He denies any abd pain. He denies any CIC or diarrhea. His mother also has GERD and takes omeprazole. There is no known FHX of stomach or esophageal cancer. He denies dysphagia. He has a.m. nausea but will dry he and only spit-up what he describes as ?acid. ? Printed GERD diet and lifestyle, discussed raising HOB, will increase o2o to 40mg qd and add famotidine qhs. Ordering HP stool, US of GB, barium swallow, and EGD. ROV 3 weeks. (2) Nausea: Comment: just in the am with acid Code(s): R11.0 - Nausea Orders: Orders FL barium swallow Today K21.9 - Gastro-esophageal reflux disease without esophagitis, R11.0 - Nausea H pylori Ag Stool Today K21.9 - Gastro-esophageal reflux disease without esophagitis, R11.0 - Nausea EGD with [facility] - GI Use Only Today K21.9 - Gastro-esophageal reflux disease without esophagitis, R11.0 - Nausea US abdomen complete Today K21.9 - Gastro-esophageal reflux disease without esophagitis, R11.0 - Nausea Medications: New omeprazole 40 mg PO DAILY 30 days 30 caps 3RF famotidine (Pepcid) 40 mg PO BEDTIME 30 tabs 6RF K21.9 - Gastro-esophageal reflux disease without esophagitis omeprazole 40 mg PO DAILY 30 days 30 caps 3RF famotidine (Pepcid) 40 mg PO BEDTIME 30 tabs 6RF K21.9 - Gastro-esophageal reflux disease without esophagitis Discontinued omeprazole Discontinued Reason: Doctor's Order 20 mg PO DAILY 30 tabs 3RF K21.9 - Gastro-esophageal reflux disease without esophagitis Coding Level of Care Code New Pt Level 3 (37939) Diagnoses GERD (gastroesophageal reflux disease) K21.9 Nausea R11.0
== END 2023-08-04 14:50 | disposition home or self-care (01) ==
PROVIDERS: PCP Nurse Practitioner Family; Visit Provider Nurse Practitioner
DX: K21.9 Gastro-esophageal reflux disease without esophagitis (principal); R11.0 Nausea
CPT/HCPCS: 99203

== ENCOUNTER 2023-08-29 14:40 | Outpatient (AMB) | payer OTHER, SELFPAY ==
--- NOTE | 2023-08-29 14:55 | A.OFFVIS_ITS ---
Intake Vital Signs 08/29/23 14:59 Height 5 ft 10 in Weight 182 lb 15.739 oz BMI 26.3 BP 126/69 Blood Pressure Location Rt brachial Position Sitting Pulse 88 Pulse Source Pulse Oximeter Pulse Oximetry (%) 100 Oxygen Delivery Method Room Air Intake Visit Reasons: 3 week follow up Intake Note: Pt presents to the office today for a 3 week follow up. Pt states his acid reflux has improved since starting the medication. Pt denies any N/V/D. Allergies No Known Allergies Allergy (Verified 08/29/23 15:01) HPI 3 week follow up HPI Details Assessment & Plan (1) GERD (gastroesophageal reflux diseas e): Code(s): K21.9 - Gastro-esophageal reflux disease without esophagitis Plan: Algerian #Lady Live The problem started 3 years ago and it keeps getting worse. He has had no prior work up, apparently he had insurance lapses and employment changes. He has had no education about GERD diet and lifestyle changes, and the only medication he was given was omeprazole; at first 10mg then 20mg. It is worse at night when he lays down and he feels acid brash coming up like vomit. He can not ID any medication changes or diet changes/illness preceding this. He rarely takes NSAIDS. He denies any abd pain. He denies any CIC or diarrhea. His mother also has GERD and takes omeprazole. There is no known FHX of stomach or esophageal cancer. He denies dysphagia. He has a.m. nausea but will dry he and only spit-up what he describes as ?acid. ? Printed GERD diet and lifestyle, discussed raising HOB, will increase o2o to 40mg qd and add famotidine qhs. Ordering HP stool, US of GB, barium swallow, and EGD. ROV 3 weeks. (2) Nausea: Comment: just in the am with acid Code(s): R11.0 - Nausea Orders: Orders FL barium swallow Today K21.9 - Gastro-esophageal reflux disease without esophagitis, R11.0 - Nausea H pylori Ag Stool Today K21.9 - Gastro-esophageal reflux disease without esophagitis, R11.0 - Nausea EGD with [facility] - GI Use Only Today K21.9 - Gastro-esophageal reflux disease without esophagitis, R11.0 - Nausea US abdomen complete Today K21.9 - Gastro-esophageal reflux disease without esophagitis, R11.0 - Nausea Medications: New omeprazole 40 mg PO DAILY 30 days 30 caps 3RF famotidine (Pepcid) 40 mg PO BEDTIME 30 tabs 6RF K21.9 - Gastro-esophageal reflux disease without esophagitis omeprazole 40 mg PO DAILY 30 days 30 caps 3RF famotidine (Pepcid) 40 mg PO BEDTIME 30 tabs 6RF K21.9 - Gastro-esophageal reflux disease without esophagitis Discontinued omeprazole Discontinued Reason: Doctor's Order 20 mg PO DAILY 30 tabs 3RF K21.9 - Gastro-esophageal reflux disease without esophagitis . Labs: Laboratory Tests 08/04/23 15:17 Stool H. pylori Ag negative ULTRASOUND OF THE ABDOMEN BARIUM SWALLOW EGD BIOPSY TODAY'S VISIT Chinese #Lady Cheung He says that increasing the omeprazole helped his sx. He has not yet been contracted to schedule the endoscopy but I think we should keep this. Likewise, it appears he is not been contacted yet for the barium swallow. I will send another note to the schedulers regarding endoscopy and asked my staff to check on why the barium swallow does not seem to be going over to order trimmer machine. I advised the H pylori test was negative so this is certainly not the driving factor in his GERD. Return office visit in 8 weeks to make sure he maintains his progress and to check and see how he is doing with getting the procedures and testing scheduled. [facility] Surgical History No pertinent past surgical history Family History Mother Hypertension Father Diabetes Social History Housing: Apartment Alcohol intake: never Patient Tobacco Use Status: Never used Tobacco e-Cigarette/Vaping Use: Never Used Second Hand Smoke Exposure: No service: No Current occupational status: employed Current occupational exposures/hazards: No Cognitive needs: No Hearing needs: No Vision needs: Yes Review of Systems Const Denies fatigue, Denies fever(s), Denies night sweats, Denies poor appetite and Denies weight loss ENT Reports Normal hearing present, Denies dental pain, Denies dysphagia, Denies hearing loss, Denies mouth pain, Denies odynophagia, Denies throat swelling, Denies tongue swelling and Reports other (Dentition adequate) Card Reports no additional complaints Resp Reports no additional complaints GI Denies abdominal pain, Denies melena, Denies bloating, Denies hematochezia, Denies constipation, Denies GI cramping, Denies dysphagia, Denies excessive flatus, Denies early satiety, Reports heartburn, Denies diarrhea, Denies nausea, Denies odynophagia, Denies vomiting and Denies hematemesis Skin/Breast Denies pruritus, Denies lesions, Denies rash and Denies jaundice Neuro Reports Normal hearing present and Denies Abnormal speech present Endo Denies fatigue Aller/Immun Denies throat swelling and Denies tongue swelling Physical Exam Vital Signs: Last Vital Signs Pulse 88 08/29/23 14:59 BP 126/69 08/29/23 14:59 Pulse Ox 100 08/29/23 14:59 Oxygen Delivery Method Room Air 08/29/23 14:59 BMI result Body Mass Index 26.3 Const General: cooperative, no acute distress, well developed and well groomed Nutritional Appearance: average body habitus and well nourished Orientation/consciousness: oriented to person, oriented to place and oriented to time Limitations: language barrier HEENT Head: Yes normocephalic and Yes atraumatic Eyes General: appearance normal, both eyes and all related structures Pupils: Equal, round and reactive pupils present Neck Neck: Yes normal visual inspection and Yes no lymphadenopathy Thyroid: Thyroid normal Resp Effort & Inspection: normal respiratory effort and able to speak in complete sentences Auscultation: clear to auscultation bilaterally Cardio Rate: regular rate Rhythm: regular rhythm Heart sounds: Normal, physiologic split S2 sound present Peripheral pulses: radial pulses present and posterior tibial pulses present GI Inspection: No distended and No Abdominal panniculus present Palpation (GI): Soft to palpation, nontender, no guarding, not rigid and No hepatosplenomegaly present Percussion: Yes normal to percussion Auscultation: normal bowel sounds Rectal Exam - Male: Yes deferred Skin General skin exam: no rashes or lesions noted, turgor normal, skin not dry, no jaundice, No spider nevi and no striae Rashes: no rashes Nails: normal Neuro General: oriented to person, oriented to place and oriented to time Cranial nerves: Yes Equal, round and reactive pupils present and Yes Normal hearing present Speech: No Abnormal speech present Extrem General: Yes normal to inspection, No clubbing, No cyanosis and No edema Psych Appearance: grossly normal and well kempt Mental Status: mental status grossly normal Speech and movement: Normal speech and movement present Affect: normal affect Attitude: cooperative Thought process: Normal thought process present and not confabulating Thought content: Normal thought content present Insight: Limited insight present (Psych) Judgement: Limited judgement present (Psych) Assessment & Plan Assessment & Plan (1) GERD (gastroesophageal reflux disease): Code(s): K21.9 - Gastro-esophageal reflux disease without esophagitis Plan: Chinese #Lady Cheung He says that increasing the omeprazole helped his sx. He has not yet been contracted to schedule the endoscopy but I think we should keep this. Likewise, it appears he is not been contacted yet for the barium swallow. I will send another note to the schedulers regarding endoscopy and asked my staff to check on why the barium swallow does not seem to be going over to order trimmer machine. I advised the H pylori test was negative so this is certainly not the driving factor in his GERD. Return office visit in 8 weeks to make sure he maintains his progress and to check and see how he is doing with getting the procedures and testing scheduled. (2) Nausea: Comment: just in the am with acid Code(s): R11.0 - Nausea Coding Level of Care Code Est Pt Level 3 (34936) Diagnoses GERD (gastroesophageal reflux disease) K21.9 Nausea R11.0
[2023-08-29 14:59] VITALS: BP 126/69; PULSE 88; O2SAT 100; BMI 26.3
== END 2023-08-29 16:31 | disposition home or self-care (01) ==
PROVIDERS: PCP Nurse Practitioner Family; Visit Provider Nurse Practitioner
DX: K21.9 Gastro-esophageal reflux disease without esophagitis (principal); R11.0 Nausea
CPT/HCPCS: 99213

== ENCOUNTER → 2023-08-29 14:40 | Outpatient (BNVA) | payer OTHER, SELFPAY | PROVIDERS: PCP Nurse Practitioner Family; Visit Provider Nurse Practitioner | DX: K21.9 Gastro-esophageal reflux disease without esophagitis (principal); R11.0 Nausea | CPT/HCPCS: 99212 ==

== ENCOUNTER 2023-10-24 14:52 | Outpatient (AMB) | payer OTHER, SELFPAY ==
--- NOTE | 2023-10-24 14:58 | A.OFFVIS_ITS ---
Intake Vital Signs 10/24/23 15:06 Height 5 ft 10 in Weight 188 lb BMI 27.0 BP 116/55 L Blood Pressure Location Rt femoral Position Sitting Pulse 75 Intake Visit Reasons: 8 weeks follow up Intake Note: Car presents to the office today in 8 weeks follow up of GERD. CC: Patient states he is doing well and denies having any GI concerns or symptoms today. Allergies No Known Allergies Allergy (Verified 10/24/23 15:08) HPI 8 weeks follow up HPI Details Assessment & Plan (1) GERD (gastroesophageal reflux diseas e): Code(s): K21.9 - Gastro-esophageal reflux disease without esophagitis Plan: Luxembourgish #Lady Live He says that increasing the omeprazole helped his sx. He has not yet been contracted to schedule the endoscopy but I think we should keep this. Likewise, it appears he is not been contacted yet for the barium swallow. I will send another note to the schedulers regarding endoscopy and asked my staff to check on why the barium swallow does not seem to be going over to order hot top liner. I advised the H pylori test was negative so this is certainly not the driving factor in his GERD. Return office visit in 8 weeks to make sure he maintains his progress and to check and see how he is doing with getting the procedures and testing scheduled. (2) Nausea: Comment: just in the am with acid Code(s): R11.0 - Nausea BARIUM SWALLOW EGD Scheduled for 01/24/2024 BIOPSY THE CORRESPONDENCE On 08/09/23 @ 10:41 Lida Pratt Wrote To [facility] pt will cb to scheduled. ON SPREAD SHEET. On 08/09/23 @ 10:38 Lida Pratt Wrote To [facility] pt scheduled prep mailed. via certified nursing assistant# [id number] Lida Pratt completed item. On 08/04/23 @ 15:05 Lida Pratt Wrote To [facility] dwl Lida Pratt completed item. On 08/04/23 @ 14:51 Sheri Littlejohn Wrote To [facility] Please schedule for EGD with [facility]. Thank you TODAY'S VISIT Turkish #Teresa Live He continues to do well on his regimen of omeprazole 40 mg in the morning and famotidine 40 mg at night. He has not yet heard about getting the EGD scheduled nor the barium swallow. I will send notes to the respective schedulers and try to get this moving for him. Return office visit in 6 months and of course after the EGD. [facility] Surgical History No pertinent past surgical history Family History Mother Hypertension Father Diabetes Social History Housing: Apartment Alcohol intake: never Patient Tobacco Use Status: Never used Tobacco e-Cigarette/Vaping Use: Never Used Second Hand Smoke Exposure: No service: No Current occupational status: employed Current occupational exposures/hazards: No Cognitive needs: No Hearing needs: No Vision needs: Yes Review of Systems Const Denies fatigue, Denies fever(s), Denies night sweats, Denies poor appetite and Denies weight loss ENT Reports Normal hearing present, Denies dental pain, Denies dysphagia, Denies hearing loss, Denies mouth pain, Denies odynophagia, Denies throat swelling, Denies tongue swelling and Reports other (Dentition adequate) Card Reports no additional complaints Resp Reports no additional complaints GI Denies abdominal pain, Denies melena, Denies bloating, Denies hematochezia, Denies constipation, Denies GI cramping, Denies dysphagia, Denies excessive flatus, Denies early satiety, Reports heartburn, Denies diarrhea, Denies nausea, Denies odynophagia, Denies vomiting and Denies hematemesis Skin/Breast Denies pruritus, Denies lesions, Denies rash and Denies jaundice Neuro Reports Normal hearing present and Denies Abnormal speech present Endo Denies fatigue Aller/Immun Denies throat swelling and Denies tongue swelling Physical Exam Vital Signs: Last Vital Signs Pulse 75 10/24/23 15:06 BP 116/55 L 10/24/23 15:06 BMI result Body Mass Index 27.0 Const General: cooperative, no acute distress, well developed and well groomed Nutritional Appearance: average body habitus and well nourished Orientation/consciousness: oriented to person, oriented to place and oriented to time Limitations: language barrier HEENT Head: Yes normocephalic and Yes atraumatic Eyes General: appearance normal, both eyes and all related structures Pupils: Equal, round and reactive pupils present Neck Neck: Yes normal visual inspection and Yes no lymphadenopathy Thyroid: Thyroid normal Resp Effort & Inspection: normal respiratory effort and able to speak in complete sentences Auscultation: clear to auscultation bilaterally Cardio Rate: regular rate Rhythm: regular rhythm Heart sounds: Normal, physiologic split S2 sound present Peripheral pulses: radial pulses present and posterior tibial pulses present GI Inspection: No distended and No Abdominal panniculus present Palpation (GI): Soft to palpation, nontender, no guarding, not rigid and No hepatosplenomegaly present Percussion: Yes normal to percussion Auscultation: normal bowel sounds Rectal Exam - Male: Yes deferred Skin General skin exam: no rashes or lesions noted, turgor normal, skin not dry, no jaundice, No spider nevi and no striae Rashes: no rashes Nails: normal Neuro General: oriented to person, oriented to place and oriented to time Cranial nerves: Yes Equal, round and reactive pupils present and Yes Normal hearing present Speech: No Abnormal speech present Extrem General: Yes normal to inspection, No clubbing, No cyanosis and No edema Psych Appearance: grossly normal and well kempt Mental Status: mental status grossly normal Speech and movement: Normal speech and movement present Affect: normal affect Attitude: cooperative Thought process: Normal thought process present and not confabulating Thought content: Normal thought content present Insight: Limited insight present (Psych) Judgement: Limited judgement present (Psych) Assessment & Plan Assessment & Plan (1) GERD (gastroesophageal reflux disease): Code(s): K21.9 - Gastro-esophageal reflux disease without esophagitis (2) Nausea: Comment: just in the am with acid Code(s): R11.0 - Nausea Plan Turkish #Teresa Live He continues to do well on his regimen of omeprazole 40 mg in the morning and famotidine 40 mg at night. He has not yet heard about getting the EGD scheduled nor the barium swallow. I will send notes to the respective schedulers and try to get this moving for him. Return office visit in 6 months and of course after the EGD. BARIUM SWALLOW EGD Scheduled for 01/24/2024 BIOPSY Medications: Refilled famotidine (Pepcid) 40 mg PO BEDTIME 30 tabs 6RF K21.9 - Gastro-esophageal reflux disease without esophagitis omeprazole 40 mg PO DAILY 30 caps 6RF 30 days omeprazole 40 mg PO DAILY 30 caps 6RF 30 days famotidine (Pepcid) 40 mg PO BEDTIME 30 tabs 6RF K21.9 - Gastro-esophageal reflux disease without esophagitis Coding Level of Care Code Est Pt Level 3 (77597) Diagnoses GERD (gastroesophageal reflux disease) K21.9 Nausea R11.0
[2023-10-24 15:06] VITALS: BP 116/55; PULSE 75; BMI 27.0
== END 2023-10-24 15:22 | disposition home or self-care (01) ==
PROVIDERS: PCP Nurse Practitioner Family; Visit Provider Nurse Practitioner
DX: K21.9 Gastro-esophageal reflux disease without esophagitis (principal); R11.0 Nausea
CPT/HCPCS: 99213

== ENCOUNTER → 2023-10-24 14:52 | Outpatient (BNVA) | payer OTHER, SELFPAY | PROVIDERS: PCP Nurse Practitioner Family; Visit Provider Nurse Practitioner | DX: K21.9 Gastro-esophageal reflux disease without esophagitis (principal); R11.0 Nausea | CPT/HCPCS: 99212 ==

== ENCOUNTER 2023-12-09 14:32 | Emergency (ER) | payer OTHER, SELFPAY ==
--- NOTE | 2023-12-09 14:49 | ED_ITS ---
HPI - General Adult General Chief complaint: General Medical Stated complaint: body aches abd pain Time Seen by Provider: 12/09/23 15:15 Source: patient, RN notes reviewed and old records reviewed Mode of arrival: ambulatory History of Present Illness HPI narrative: 28-year-old Martiniquais-speaking male with a past medical history of GERD presenting to the ED complaining of subjective fever, chills, nausea, sore throat, fatigue x yesterday. Reports decreased p.o. intake. Denies abdominal pain, travel, sick contacts, drainage from ear, difficulty/inability to swallow. Admits daughter sick with ear infection. Related Data Previous Rx's Medication Instructions Recorded loratadine 10 mg tablet (Allergy 10 mg PO DAILY #30 tabs 06/05/23 Relief (loratadine)) famotidine 40 mg tablet (Pepcid) 40 mg PO BEDTIME #30 tabs 10/24/23 omeprazole 40 mg capsule,delayed 40 mg PO DAILY 30 days #30 caps 10/24/23 release acetaminophen 500 mg tablet 500 mg PO Q6H PRN fever or pain 12/09/23 (Tylenol Extra Strength) #14 tabs amoxicillin 875 mg-potassium 1 tab PO BID 7 days #14 tabs 12/09/23 clavulanate 125 mg tablet ibuprofen 400 mg tablet 400 mg PO Q6H PRN fever or pain 12/09/23 #14 tabs Allergies Allergy/AdvReac Type Severity Reaction Status Date / Time No Known Allergies Allergy Verified 12/09/23 14:57 Review of Systems Review of Systems: Constitutional: +Fever, + Chills, +fatigue ENT/Mouth: No Ear Pain, + Nasal Congestion, No Sinus Pain, No Hoarseness,+ sore throat, + Rhinorrhea, No Swallowing Difficulty Cardiovascular: No Chest Pain, No SOB Respiratory: No Cough, No Sputum, No Wheezing Gastrointestinal: +Nausea, No Vomiting, No Diarrhea, No Constipation, No Abdominal pain Genitourinary: No Dysuria, No Urinary Frequency, No Hematuria, No Flank Pain Musculoskeletal: No joint pain, +Myalgias, No Joint Swelling Skin: No Skin Lesions, No rash Neuro: No Weakness Yes all other systems are reviewed and are negative Constitutional: Constitutional: Reports as per [facility] Past Medical History Attestation statement: The following information was validated with the patient. Source: old records reviewed Surgical History No pertinent past surgical history Family History Family History Mother Hypertension Father Diabetes Social History Social History Housing: Apartment Alcohol intake: never Patient Tobacco Use Status: Never used Tobacco e-Cigarette/Vaping Use: Never Used Second Hand Smoke Exposure: No Advance Directives: No Advance Directives Information Provided: No service: No Current occupational status: employed Current occupational exposures/hazards: No Cognitive needs: No Hearing needs: No Vision needs: Yes Physical Exam ED Vital Signs: Vital Signs - 24 hr 12/09/23 14:51 Temperature 100.9 F H Pulse Rate 119 H Respiratory Rate 20 Blood Pressure 118/76 Pulse Oximetry 99 Oxygen Delivery Method Room Air BMI result Body Mass Index 26.9 Const General: cooperative, healthy appearing and no acute distress Orientation/consciousness: patient oriented x3 Limitations: no limitations HENMT Head: Yes normal to inspection and Yes atraumatic Ears: hearing grossly normal bilaterally, external ears normal, TM's normal bilaterally and mastoids normal General nose exam: Normal external nose present Face and sinus: Yes normal facial exam Mouth: no drooling Throat: Yes uvula midline, No peritonsillar mass, Yes posterior oropharynx abnormal (Erythematous), No uvula laterally displaced and No uvular edema Eyes General: appearance normal, both eyes and all related structures EOM: EOMs intact bilaterally Neck Neck: Yes normal visual inspection and Yes no meningeal signs Resp Effort & Inspection: normal respiratory effort, no respiratory distress and no stridor Auscultation: clear to auscultation bilaterally and no crackles Cardio Rate: regular rate Heart sounds: S1 normal heart sound present and S2 normal heart sound present Skin Rashes: no rashes Wounds: no wounds Neuro General: patient oriented x3, tone normal and no meningeal signs Cranial nerves: Yes CN's II-XII intact bilaterally Gait exam (Neuro): Normal gait present Extrem General: Yes normal to inspection Course Course Course Narrative: This is a rapid medical exam: Additional HPI, ROS, PE not included below will be deferred to primary provider. Patient is a 28-year-old male presenting to the emergency department with complaint of sweats/chills, nausea, headache, sore throat and generalized abdominal pain since yesterday. Vomited last night. Denies cough. Daughter has an ear infection. Taking ibuprofen at home. Plan: viral and strep swabs 1543--strep throat positive. COVID and influenza negative > patient given 1st dose of Augmentin in the ED. -VS improved after PO Tylenol Results discussed with patient including worrisome signs and symptoms and strict return precautions, and when to return to the emergency department. They verbalized understanding and feel safe for discharge at this time. Medications Administered Discontinued Medications Generic Name Dose Route Start Last Admin Trade Name Sajanq PRN Reason Stop Dose Admin Acetaminophen 650 mg 12/09/23 14:57 12/09/23 15:25 Acetaminophen 325 Mg Tablet PO 12/09/23 14:58 650 mg ONCE ONE Administration Amoxicillin/Clavulanate Potassium 875 mg 12/09/23 15:23 12/09/23 15:26 Amoxicillin/Potassium Clav 875 Mg Tablet PO 12/09/23 15:24 875 mg ONCE ONE Administration Medical Decision Making Medical Decision Making MDM Narrative: 28-year-old Martiniquais-speaking male with a past medical history of GERD presenting to the ED complaining of subjective fever, chills, nausea, sore throat, fatigue x yesterday. Reports decreased p.o. intake. On exam low-grade temp 100.9 degrees, tachycardic likely from fever, NAD/nontoxic appearing, posterior or pharyngeal erythema appreciated. 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 TMs WNL, uvula midline, talking in complete sentences. Concern for viral illness vs strep pharyngitis. Lower suspicion for pneumonia, bronchitis, or intra-abdominal pathology Plan: Viral testing, rapid strep, p.o. Tylenol, re-evaluate Please refer to course for remaining clinical decision making, interpretation of labs/imaging results, and discussions with consultants and/or family members. Differential Diagnosis Differential Diagnoses: The differential diagnosis associated with the presentation includes As above Lab Data [facility] Lab Attestation statement: I reviewed the patient's lab results. Labs: Lab Results 12/09/23 Range/Units 15:09 COVID-19 (TREY) Negative (Negative) COVID-19 Clin Com See Note Influenza Type A (STEPHANIE) Negative (Negative) Influenza Type B (STEPHANIE) Negative (Negative) Influenza A & B Note See Note S. pyogenes GrpA STEPHANIE Positive A (Negative) External Record Review External record reviewed: Inpatient record, Office record, Outpatient record, Prior outpatient labs, Prior outpatient radiology, Primary care record and Outside ED record Tests considered The following testing was considered but not selected: As above Prescription Management I considered prescription management with: Pain Medication and Antibiotic Discharge Plan Discharge Clinical Impression: Strep throat Patient Disposition: Home, Self-Care Instructions: Strep Throat (DC) Additional Instructions: You have strep throat. Augmentin as an antibiotic please take as prescribed until completion Ibuprofen and Tylenol will help with pain/swelling Your contagious until your on antibiotics for 24 hours, avoid sharing food/drink and utensils Gargle with warm salt water If symptoms persist or worsen you develop worsening swelling, fevers resolved with medications, difficulty or inability to swallow return to the emergency d epartment Tienes faringitis estreptoc?cica. Augmentin kelly antibi?bret, t?cisneros seg?n lo prescrito hasta completarlo. El ibuprofeno y Tylenol ayudar?n con el dolor/hinchaz?n. Eres contagioso hasta que tomes antibi?ticos julieta 24 horas, rita compartir alimentos/bebidas y utensilios. Mitchell g?rgaras con agua tibia con duran Si los s?ntomas persisten o empeoran, desarrolla rudy hinchaz?n que empeora, fiebre que se resuelve con medicamentos, dificultad o incapacidad para tragar, regrese al departamento de emergencias. Prescriptions: New amoxicillin-pot clavulanate 875-125 mg tablet 1 tab PO BID 7 Days Qty: 14 0RF ibuprofen 400 mg tablet 400 mg PO Q6H PRN (Reason: fever or pain) Qty: 14 0RF acetaminophen [Tylenol Extra Strength] 500 mg tablet 500 mg PO Q6H PRN (Reason: fever or pain) Qty: 14 0RF No Action loratadine [Allergy Relief (loratadine)] 10 mg tablet 10 mg PO DAILY Qty: 30 3RF famotidine [Pepcid] 40 mg tablet 40 mg PO BEDTIME Qty: 30 6RF omeprazole 40 mg capsule,delayed release(DR/EC) 40 mg PO DAILY 30 Days Qty: 30 6RF Referrals: Farhana Lyle FNP [Primary Care Provider] - 5 days (as needed) Stand Alone Forms: Work/School Release Print Language: Martiniquais
[2023-12-09 14:51] VITALS: BP 118/76; PULSE 119; RESP 20; TEMP 38.3; O2SAT 99; BMI 26.9
[2023-12-09 15:20] LABS: IDNOW Serial# 08D9AD1C; Strep A Nucleic Acid Positive (Negative)
[2023-12-09] MEDS: Acetaminophen 325 MG TABLET 650 MG PO (15:25)
[2023-12-09] MEDS: Amoxicillin/Potassium Clav 875 MG TABLET PO (15:26)
[2023-12-09 15:31] LABS: COVID-19 Test Negative (Negative); IDNOW Serial# 58CA691E; IDNOW Serial# 9DB6401D; Influenza A Negative (Negative); Influenza B2 Negative (Negative)
[2023-12-09 15:58] VITALS: BP 122/66; PULSE 105; RESP 18; TEMP 37.6; O2SAT 98
== END 2023-12-09 16:02 | disposition home or self-care (01) ==
PROVIDERS: Registered Nurse Emergency; Emergency Provider Student in an Organized Health Care Education/Training Program; PCP Nurse Practitioner Family
DX: J02.0 Streptococcal pharyngitis (principal); Z11.52 Encounter for screening for COVID-19
CPT/HCPCS: 87502; 87635; 87651; 99283

== ENCOUNTER 2023-12-21 01:17 | Emergency (ER) | payer OTHER, SELFPAY ==
[2023-12-21 02:05] VITALS: BP 122/70; PULSE 71; RESP 16; TEMP 36.9; O2SAT 97; BMI 25.8
--- NOTE | 2023-12-21 02:07 | ED.URI ---
HPI - URI/Sore Throat General Stated Complaint: Sore throat Time Seen by Provider: 12/21/23 02:07 Source: patient and dentofacial orthopedics dentist Mode of arrival: ambulatory Limitations: no limitations History of Present Illness HPI Narrative: 28 yo male with GERD here with sore throat x 24 hours his has strep throat now he has a red sore throat as well - no fevers n/v/d MD elicited complaint: sore throat Onset (ago): hour(s) (24) Consistency: constant Severity: moderate Description of mucous: clear Able to tolerate fluids by mouth: Yes Exacerbating factors: swallowing Relieving factors: nothing Context: sick contacts Associated symptoms: denies other symptoms Treatments prior to arrival: none Related Data Previous Rx's Medication Instructions Recorded loratadine 10 mg tablet (Allergy 10 mg PO DAILY #30 tabs 06/05/23 Relief (loratadine)) famotidine 40 mg tablet (Pepcid) 40 mg PO BEDTIME #30 tabs 10/24/23 omeprazole 40 mg capsule,delayed 40 mg PO DAILY 30 days #30 caps 10/24/23 release acetaminophen 500 mg tablet 500 mg PO Q6H PRN fever or pain 12/09/23 (Tylenol Extra Strength) #14 tabs amoxicillin 875 mg-potassium 1 tab PO BID 7 days #14 tabs 12/09/23 clavulanate 125 mg tablet ibuprofen 400 mg tablet 400 mg PO Q6H PRN fever or pain 12/09/23 #14 tabs amoxicillin 500 mg tablet 500 mg PO BID #20 tabs 12/21/23 Allergies Allergy/AdvReac Type Severity Reaction Status Date / Time No Known Allergies Allergy Verified 12/21/23 02:04 Review of Systems Review of Systems: Constitutional : No Fever, No Chills, No Fatigue ENT/Mouth :pos sore throat, No Rhinorrhea Eyes: No Eye Pain, No Swelling, No Redness Cardiovascular : No Chest Pain, No SOB, No Dyspnea on Exertion Respiratory : No Cough, No Sputum Gastrointestinal : No Nausea, No Vomiting, No Diarrhea, No abdominal Pain Musculoskeletal : No joint pain, No Myalgias, No Joint Swelling Skin : No Skin Lesions, No rash Neuro : No Weakness, No Numbness, No Dizziness, no Headache All other systems reviewed and are negative PMFSH Past Medical History Attestation statement: The following information was validated with the patient. Source: old records reviewed Medical History (Updated 12/21/23 @ 02:11 by Kelly Schmidt DO) Lumbar back pain GERD (gastroesophageal reflux disease) Surgical History No pertinent past surgical history Family History Family History Mother Hypertension Father Diabetes Social History Social History Housing: Apartment Alcohol intake: never Patient Tobacco Use Status: Never used Tobacco e-Cigarette/Vaping Use: Never Used Second Hand Smoke Exposure: No service: No Current occupational status: employed Current occupational exposures/hazards: No Cognitive needs: No Hearing needs: No Vision needs: Yes Physical Exam Vital Signs: Appearance: Alert. Oriented X3. No acute distress. Eyes: Pupils equal, round and reactive to light. ENT: Pharynx erythema bilateral with exudates uvula is midline Neck: Normal inspection. Neck supple. CVS: Normal heart rate and rhythm. Pulses normal. Respiratory: No respiratory distress. Breath sounds normal. Abdomen: Soft and nontender. Skin: Skin warm and dry. Normal skin color. Extremities: No lower extremity edema. Neuro: Oriented X 3. No motor deficit. No sensory deficit. Medical Decision Making Medical Decision Making MDM Narrative: 28 yo male with PMH of GERD here with c/o sore throat and his has strep throat - throat is red swollen with patches - no signs of DOOR TRIMMER or retropharyngeal abscess. will start on amoxicillin and DC home. Differential Diagnosis Differential Diagnoses: The differential diagnosis associated with the presentation includes strep throat Admission/Observation Consideration of admission/observation: Escalation of care including admission/observation considered not toxic no signs of deeper space infection External Record Review External record reviewed: Inpatient record Prescription Management I considered prescription management with: Antibiotic Discharge Plan Discharge Clinical Impression: Strep throat Patient Disposition: Home, Self-Care Instructions: Strep Throat (ED) Additional Instructions: return for worsening symptoms, fevers, inability to swallow or drooling. finish all antibiotics Regrese si los s?ntomas empeoran, fiebre, incapacidad para tragar o babear. terminar todos los antibi?ticos. Prescriptions: New amoxicillin 500 mg tablet 500 mg PO BID Qty: 20 0RF No Action amoxicillin-pot clavulanate 875-125 mg tablet 1 tab PO BID 7 Days Qty: 14 0RF ibuprofen 400 mg tablet 400 mg PO Q6H PRN (Reason: fever or pain) Qty: 14 0RF acetaminophen [Tylenol Extra Strength] 500 mg tablet 500 mg PO Q6H PRN (Reason: fever or pain) Qty: 14 0RF loratadine [Allergy Relief (loratadine)] 10 mg tablet 10 mg PO DAILY Qty: 30 3RF famotidine [Pepcid] 40 mg tablet 40 mg PO BEDTIME Qty: 30 6RF omeprazole 40 mg capsule,delayed release(DR/EC) 40 mg PO DAILY 30 Days Qty: 30 6RF Stand Alone Forms: Work/School Release Print Language: Peruvian
== END 2023-12-21 02:31 | disposition home or self-care (01) ==
PROVIDERS: Emergency Provider Emergency Medicine
DX: J02.0 Streptococcal pharyngitis (principal); Z79.899 Other long term (current) drug therapy
CPT/HCPCS: 99283

== ENCOUNTER 2024-01-24 10:56 | Day surgery (SDC) | payer OTHER, SELFPAY ==
--- NOTE | 2024-01-23 08:30 | HO.ANESPROP2 ---
Documented by User: Tania Cooper NP 01/23/24 08:31 HPI - Anesthesia Eval Consult details Narrative: 29yo M for Upper Endoscopy [facility] Active Problems Active Problems: All Active Problems (Updated 12/22/23 @ 00:01 by Ronn Brand) Nausea (Acute) Seasonal allergies (Acute) Past Medical History Medical History Lumbar back pain GERD (gastroesophageal reflux disease) Family History Family History Mother Hypertension Father Diabetes Surgical History Surgical History No pertinent past surgical history Social History Social History Housing: Apartment Alcohol intake: never Patient Tobacco Use Status: Never used Tobacco e-Cigarette/Vaping Use: Never Used Second Hand Smoke Exposure: No Use of substances other than those prescribed or required for medical reasons: No Are you DNR?: No Advance Directives: No Advance Directives Information Provided: Yes service: No Current occupational status: employed Current occupational exposures/hazards: No Cognitive needs: No Hearing needs: No Vision needs: Yes Meds Allergies Allergy/AdvReac Type Severity Reaction Status Date / Time No Known Allergies Allergy Verified 01/24/24 12:28 Home Medications Medication Instructions Recorded Confirmed Last Taken Type montelukast 01/24/24 01/24/24 Unknown History Assessment and Plan Assessment Anesthesia Assessment: Chart Reviewed Documented by User: Klaudia Nunez MD 01/24/24 12:46 [facility] Past Medical History Medical History Lumbar back pain GERD (gastroesophageal reflux disease) Family History Family History Mother Hypertension Father Diabetes Family history of problems with anesthesia: No Surgical History Surgical History No pertinent past surgical history History of Problems with Anesthesia: No Social History Social History Housing: Apartment Alcohol intake: never Patient Tobacco Use Status: Never used Tobacco e-Cigarette/Vaping Use: Never Used Second Hand Smoke Exposure: No Use of substances other than those prescribed or required for medical reasons: No Are you DNR?: No Advance Directives: No Advance Directives Information Provided: Yes service: No Current occupational status: employed Current occupational exposures/hazards: No Cognitive needs: No Hearing needs: No Vision needs: Yes Meds Allergies Allergy/AdvReac Type Severity Reaction Status Date / Time No Known Allergies Allergy Verified 01/24/24 12:28 Home Medications Medication Instructions Recorded Confirmed Last Taken Type montelukast 01/24/24 01/24/24 Unknown History Exam Airway Mallampati Class: II TM Dist: >3cm Neck ROM: Full Heart: rrr Lungs: cta Assessment and Plan Assessment Anesthesia Assessment: Anesthesia Plan Discussed Final Anesthetic Review Family History of Problems with Anesthesia: No History of Problems with Anesthesia: No NPO: Yes ASA Class: II Final Preanesthetic Review: No Changes in Pt Med Stat, Meds/Allgs Chart Reviewed and Consent Obtained/Reviewed Patient Risk: Low Procedure Risk: Low Anesthetic Plan Anesthetic Plan: MAC: Disposition: Standard PACU
[2024-01-24 12:08] VITALS: BMI 25.8
[2024-01-24 12:31] VITALS: BP 115/73; PULSE 76; RESP 16; TEMP 36.8; O2SAT 100
--- NOTE | 2024-01-24 12:38 | MHC.SHP ---
Pre-Procedural Eval Section A - 24 Hr Update-Section A only Date of Service: 01/24/24 Section B - Complete if H&P > 30 days Chief Complaint: Gastro-esophageal reflux disease without esophagit Relevant Family History (Specify if Yes): No Relevant Social History: None Present Medications: see Short Stay Collaborative assessment Medical History: Significant History (Lumbar back pain GERD (gastroesophageal reflux disease)) History of Previous Operations: No relevant previous surgery Allergies: Allergies Allergy/AdvReac Type Severity Reaction Status Date / Time No Known Allergies Allergy Verified 01/24/24 12:28 Review of Systems Sugical H&P ROS: Negative: Constitution, Cardiovascular, Respiratory, Neurological, Psychiatric, Hem-Onc, Allergic/Immunologic, Gastrointestinal, Genitourinary, Musculoskeletal, Integumentary, Endocrine and Eyes/Ears/Nose/Throat Exam Surgical H&P Exam: Normal: HEENT, Normal: Heart, Normal: Lungs, Normal: Extremities, Normal: Abdomen, Normal: Skin and Normal: Neurological Plan Diagnosis/Plan: Unchanged I have reviewed the history and physical and performed a pertinent physical examination on my patient. No changes have occurred unless specified. Time Spent With Patient Time: Total time managing care of this patient today ____ minutes.
--- NOTE | 2024-01-24 12:58 | W.PM.OPN ---
Operative Note Operative Note Date of Service: 01/24/24 Narrative: Procedure Description: EGD Indication: GERD Anesthesia: MAC FLEXIBLE TRANSORAL UPPER GASTROINTESTINAL ENDOSCOPY UPPER ENDOSCOPY Consent: Indications for the procedure and potential complications of bleeding, perforation, reaction to medications and missed diagnosis were discussed with the patient and informed consent was obtained. Instrument: Olympus GIF H 190 J mid size upper endoscope Monitoring: Vital signs and clinical assessment, continuous EKG monitoring, Pulse oximetry, Carbon Dioxide monitoring and blood pressure monitoring were done throughout the procedure. Procedure: The patient was placed in the left lateral decubitis position and pre-procedure medications were administered and a bite block was placed. The endoscope was inserted into the mouth and advanced under direct vision to the third part of duodenum. A careful inspection was made as the upper endoscope was withdrawn including a retroflexed examination of the proximal stomach; Findings and interventions are described below. Findings: Larynx:normal Esophagus: GE junction at 37 cm, diaphragm hiatus at 40 cm, consistent with 3 cm sliding hiatal hernia, mild esophagitis noted at GEJ, bx taken from here and distal, proximal esophagus Stomach: mild erythema . Biopsies were obtained. Grade 2 flap valve on retroflexed examination of the cardia. Duodenum: Normal bulb and descending duodenum, Intervention: Biopsies as noted above, Impression/Findings: gastritis esophagitis hiatal hernia PLAN: compliance with PPI GERD precautions
[2024-01-24 13:11] VITALS: BP 105/61; PULSE 85; RESP 16; TEMP 36.6; O2SAT 99
[2024-01-24 13:26] VITALS: BP 112/66; PULSE 76; RESP 16; TEMP 36.2; O2SAT 99
== END 2024-01-24 13:45 | disposition home or self-care (01) ==
PROVIDERS: Visit Provider Internal Medicine Gastroenterology
PROC: 0DJ08ZZ Inspection of Upper Intestinal Tract, Via Natural or Artificial Opening Endoscopic (ICD-10-PCS; CPT 43235; principal; 2024-01-24 13:30)
DX: K21.9 Gastro-esophageal reflux disease without esophagitis (principal); R11.0 Nausea; K29.60 Other gastritis without bleeding; K20.80 Other esophagitis without bleeding; K44.9 Diaphragmatic hernia without obstruction or gangrene; Z79.899 Other long term (current) drug therapy
CPT/HCPCS: 43239; 88305; 88313; 88342; J2704

== ENCOUNTER → 2024-01-24 10:56 | Outpatient (BNV) | payer OTHER, SELFPAY | PROVIDERS: Visit Provider Internal Medicine Gastroenterology | DX: K21.00 Gastro-esophageal reflux disease with esophagitis, without bleeding (principal); K29.70 Gastritis, unspecified, without bleeding | CPT/HCPCS: 43239 ==

== ENCOUNTER 2024-02-07 14:36 | Outpatient (AMB) | payer OTHER, SELFPAY ==
--- NOTE | 2024-02-07 14:56 | A.OFFVIS_ITS ---
Vital Signs 02/07/24 15:15 Height 5 ft 10 in Weight 185 lb 10.067 oz BMI 26.6 BP 120/61 Blood Pressure Location Lt brachial Position Sitting Pulse 76 Intake Visit Reasons: S/p Egd Restrepo Intake Note: Patient in office today in follow up s/p EGD. CC: Patient states that sometimes he has BM every other day. Denies having any other GI concerns today [employer] Required: Yes Accompanied by: Self / Same As Patient Allergies No Known Allergies Allergy (Verified 02/07/24 15:20) HPI HPI S/p Egd Restrepo: Details: Assessment & Plan (1) GERD (gastroesophageal reflux disease): Code(s): K21.9 - Gastro-esophageal reflux disease without esophagitis (2) Nausea: Comment: just in the am with acid Code(s): R11.0 - Nausea Plan [place] #Teresa Live He continues to do well on his regimen of omeprazole 40 mg in the morning and famotidine 40 mg at night. He has not yet heard about getting the EGD scheduled nor the barium swallow. I will send notes to the respective schedulers and try to get this moving for him. Return office visit in 6 months and of course after the EGD. Medications: Refilled famotidine (Pepcid) 40 mg PO BEDTIME 30 tabs 6RF K21.9 - Gastro-esophageal reflux disease without esophagitis omeprazole 40 mg PO DAILY 30 caps 6RF 30 days omeprazole 40 mg PO DAILY 30 caps 6RF 30 days famotidine (Pepcid) 40 mg PO BEDTIME 30 tabs 6RF K21.9 - Gastro-esophageal reflux disease without esophagitis BARIUM SWALLOW Not yet obtained EGD 01/29/24 Findings: Larynx:normal Esophagus: GE junction at 37 cm, diaphragm hiatus at 40 cm, consistent with 3 cm sliding hiatal hernia, mild esophagitis noted at GEJ, bx taken from here and distal, proximal esophagus Stomach: mild erythema . Biopsies were obtained. Grade 2 flap valve on retroflexed examination of the cardia. Duodenum: Normal bulb and descending duodenum, Intervention: Biopsies as noted above, Impression/Findings: gastritis esophagitis hiatal hernia PLAN: compliance with PPI GERD precautions BIOPSY Addendum Addendum #1 (A): H. pylori immunostain is negative with appropriate control. Electronically Signed By: Conchis Gonzales 01/29/24 1235 Diagnosis A. Stomach, biopsy: Gastric antral mucosa with minimal chronic inactive gastritis; negative for intestinal metaplasia and dysplasia (see comment). B. Gastroesophageal junction, biopsy: Squamous mucosa with hyperplasia and intraepithelial eosinophils (up to 3 per high-power field) consistent with reflux esophagitis, and columnar mucosa with moderate chronic inflammation; negative for intestinal metaplasia and dysplasia. C. Esophagus, distal, biopsy: Squamous mucosa with no specific change; no columnar mucosa present. D. Esophagus, proximal, biopsy: Squamous mucosa with no specific change; no columnar mucosa present. Comment: (A): H pylori immunostain pending; addendum to follow TODAY'S VISIT Dutch # Michel Jonatan He says that when he woke up the left side of his jaw was swollen like someone punched me. This has improved after 2 days. He continues to do well on his regimen of omeprazole 40 mg in the morning and famotidine 40 mg at night. Given ongoing (although not SSBE) esophagitis he will need life long PPI therapy and was educated as such. He also has a 3cc sliding HH. He was educated why these are preferred to be treated via medication rather than surgery. He asks about diet and GERD list printed. He continues on his omeprazole in the morning and famotidine at night and for now this is controlling him well. ROV 6 mos. PFS Medical History GERD (gastroesophageal reflux disease) Lumbar back pain Surgical History History of esophagogastroduodenoscopy (EGD) Family History Mother Hypertension Father Diabetes Social History Housing: Apartment Alcohol intake: never Patient Tobacco Use Status: Never used Tobacco e-Cigarette/Vaping Use: Never Used Second Hand Smoke Exposure: No service: No Current occupational status: employed Current occupational exposures/hazards: No Cognitive needs: No Hearing needs: No Vision needs: Yes Review of Systems Const Denies fatigue, Denies fever(s), Denies night sweats, Denies poor appetite and Denies weight loss ENT Reports Normal hearing present, Denies dental pain, Denies dysphagia, Denies hearing loss, Denies mouth pain, Denies odynophagia, Denies throat swelling, Denies tongue swelling and Reports other (Dentition adequate) Card Reports no additional complaints Resp Reports no additional complaints GI Details: Denies abdominal pain, Denies melena, Denies bloating, Denies hematochezia, Denies constipation, Denies GI cramping, Denies dysphagia, Denies excessive flatus, Denies early satiety, Reports heartburn, Denies diarrhea, Denies nausea, Denies odynophagia, Denies vomiting and Denies hematemesis Skin/Breast Denies pruritus, Denies lesions, Denies rash and Denies jaundice Neuro Reports Normal hearing present and Denies Abnormal speech present Endo Denies fatigue Aller/Immun Denies throat swelling and Denies tongue swelling Physical Exam Vital Signs: Last Vital Signs Pulse 76 02/07/24 15:15 BP 120/61 02/07/24 15:15 BMI result Body Mass Index 26.6 Const General: cooperative, no acute distress, well developed and well groomed Nutritional Appearance: average body habitus and well nourished Orientation/consciousness: oriented to person, oriented to place and oriented to time Limitations: language barrier HEENT Head: Yes normocephalic and Yes atraumatic Eyes General: appearance normal, both eyes and all related structures Pupils: Equal, round and reactive pupils present Neck Neck: Yes normal visual inspection and Yes no lymphadenopathy Thyroid: Thyroid normal Resp Effort & Inspection: normal respiratory effort and able to speak in complete sentences Auscultation: clear to auscultation bilaterally Cardio Rate: regular rate Rhythm: regular rhythm Heart sounds: Normal, physiologic split S2 sound present Peripheral pulses: radial pulses present and posterior tibial pulses present GI Inspection: No distended and No Abdominal panniculus present Palpation (GI): Soft to palpation, nontender, no guarding, not rigid and No hepatosplenomegaly present Percussion: Yes normal to percussion Auscultation: normal bowel sounds Rectal Exam - Male: Yes deferred Skin General skin exam: no rashes or lesions noted, turgor normal, skin not dry, no jaundice, No spider nevi and no striae Rashes: no rashes Nails: normal Neuro General: oriented to person, oriented to place and oriented to time Cranial nerves: Yes Equal, round and reactive pupils present and Yes Normal hearing present Speech: No Abnormal speech present Extrem General: Yes normal to inspection, No clubbing, No cyanosis and No edema Psych Appearance: grossly normal and well kempt Mental Status: mental status grossly normal Speech and movement: Normal speech and movement present Affect: normal affect Attitude: cooperative Thought process: Normal thought process present and not confabulating Thought content: Normal thought content present Insight: Limited insight present (Psych) Judgement: Limited judgement present (Psych) Assessment & Plan Assessment & Plan (1) GERD (gastroesophageal reflux disease): Code(s): K21.9 - Gastro-esophageal reflux disease without esophagitis Category: Medical (2) Nausea: Comment: just in the am with acid Code(s): R11.0 - Nausea Category: Medical Plan Dutch # Michel Live He says that when he woke up the left side of his jaw was swollen like someone punched me. This has improved after 2 days. He continues to do well on his regimen of omeprazole 40 mg in the morning and famotidine 40 mg at night. Given ongoing (although not SSBE) esophagitis he will need life long PPI therapy and was educated as such. He also has a 3cc sliding HH. He was educated why these are preferred to be treated via medication rather than surgery. He asks about diet and GERD list printed. He continues on his omeprazole in the morning and famotidine at night and for now this is controlling him well. ROV 6 mos. Medications: Refilled omeprazole 40 mg PO DAILY 30 caps 6RF 30 days famotidine (Pepcid) 40 mg PO BEDTIME 30 tabs 6RF K21.9 - Gastro-esophageal reflux disease without esophagitis Coding Level of Care Code Est Pt Level 3 (94460) Diagnoses GERD (gastroesophageal reflux disease) K21.9 Nausea R11.0
[2024-02-07 15:15] VITALS: BP 120/61; PULSE 76; BMI 26.6
== END 2024-02-07 15:40 | disposition home or self-care (01) ==
PROVIDERS: PCP Nurse Practitioner Family; Visit Provider Nurse Practitioner
DX: K21.9 Gastro-esophageal reflux disease without esophagitis (principal); R11.0 Nausea
CPT/HCPCS: 99213

== ENCOUNTER → 2024-02-07 14:36 | Outpatient (BNVA) | payer OTHER, SELFPAY | PROVIDERS: PCP Nurse Practitioner Family; Visit Provider Nurse Practitioner | DX: K21.9 Gastro-esophageal reflux disease without esophagitis (principal); R11.0 Nausea | CPT/HCPCS: 99212 ==

== ENCOUNTER 2024-08-29 14:32 | Outpatient (AMB) | payer OTHER, SELFPAY ==
[2024-08-29 14:39] VITALS: BP 114/76; PULSE 80; O2SAT 100; BMI 26.8
--- NOTE | 2024-08-29 14:39 | MHC.PC.OV ---
Vital Signs 08/29/24 14:39 Height 5 ft 10 in Weight 187 lb BMI 26.8 BP 114/76 Blood Pressure Location Lt brachial Position Sitting Pulse 80 Pulse Source Pulse Oximeter Pulse Oximetry (%) 100 Oxygen Delivery Method Room Air Intake Visit Reasons: MANDI/tonja waterman Allergies No Known Allergies Allergy (Verified 08/29/24 15:05) Medication List - Last Reconciled 08/29/24 by Joi Rivera PA-C acetaminophen (Tylenol Extra Strength) 500 mg PO Q6H PRN famotidine (Pepcid) 40 mg PO BEDTIME loratadine (Allergy Relief (loratadine)) 10 mg PO DAILY montelukast 10 mg PO DAILY omeprazole 40 mg PO DAILY 30 days Tobacco use date assessed: 08/29/24 Dental Screening Dental Screen Date: 08/29/24 Did you have a dental visit in the last 12 months?: Yes Did you have a dental problem in the last 6 months where you did not have access to dental care?: No Was dental information given to patient?: Patient has dentist HPI MANDI/tonja waterman HPI Details 29-year-old male with past medical history of GERD last seen by nurse practitioner May 2024 coming in for annual exam.? In review of the notes, patient was seen by [facility] [place]/08/2024 for follow up on GERD advised to follow up on his current medication regimen s/p EGD which showed esophagitis with hiatal hernia. [employer] Architect was used for the duration of this visit. Patient has no acute concerns today. He is requesting an eye doctor as he has prescription lenses and has not had a new prescription over 2 years. [facility] Medical History GERD (gastroesophageal reflux disease) Lumbar back pain Surgical History History of esophagogastroduodenoscopy (EGD) Family History Mother Hypertension Father Diabetes Social History Housing: Apartment Alcohol intake: never Patient Tobacco Use Status: Never used Tobacco e-Cigarette/Vaping Use: Never Used Second Hand Smoke Exposure: No service: No Current occupational status: employed Current occupational exposures/hazards: No Cognitive needs: No Hearing needs: No Vision needs: Yes Questionnaire PHQ-9 Over the last 2 weeks, how often have you been bothered by any of the following problems? 1. Little interest or pleasure in doing things: not at all 2. Feeling down, depressed, or hopeless: not at all 3. Trouble falling or staying asleep, or sleeping too much: not at all 4. Feeling tired or having little energy: not at all 5. Poor appetite or overeating: not at all 6. Feeling bad about yourself - or that you are a failure or have let yourself or your family down: not at all 7. Trouble concentrating on things, such as reading the newspaper or watching television: not at all 8. Moving or speaking so slowly that other people could have noticed. Or the opposite - being so fidgety or restless that you have been moving around a lot more than usual: not at all 9. Thoughts that you would be better off or of hurting yourself in some way: not at all Total score: 0 Depression Screening Interpretation: Negative Depression Screening Done: Yes 63590 - PHQ-9 Billing: Yes Source: Developed by Drs. Oliver Petersen, Isabell Zeng, Hong Holloway and colleagues, with an educational rohini from [employer]. Thrive Questionnaire Date Thrive assessed: 06/05/23 I am a: Patient What is your living situation today?: I choose not to answer this question Within the past 12 months, did the food you bought not last and you didn't have the money to get more?: I choose not to answer this question Within the past 12 months, did you worry whether your food would run out before you got money to buy more?: I choose not to answer this question Do you have trouble paying for medicines?: I choose not to answer this question Do you have trouble getting transportation to medical appointments?: No Do you have trouble paying your heating and electricity bill?: No Do you have trouble taking care of your child, family member or friend?: No Do you have trouble with day-to-day activities such as bathing, preparing meals, shopping, managing finances, etc.?: I choose not to answer this question Are you currently unemployed and looking for a job?: I choose not to answer this question Are you interested in more education?: I choose not to answer this question Please select the resources that you would like help with: None Currently or been in a relationship where the following occur: I choose not to answer THRIVE Score: 0 AUDIT C Alcohol Use Questionnaire (AUDIT-C) 1. How often do you have a drink containing alcohol?: Never 3. How often do you have six or more drinks on one occasion?: Never Total Score: 0 JOHNNY-7 AMB Questionnaire JOHNNY-7 Date JOHNNY - 7 assessed: 08/29/24 Feeling nervous, anxious, or on edge: 0 = Not at all Not being able to stop or control worryin = Not at all Worrying too much about different things: 0 = Not at all Trouble relaxin = Not at all Being so restless that it is hard to sit still: 0 = Not at all Becoming easily annoyed or irritable: 0 = Not at all Feeling afraid as if something awful might happen: 0 = Not at all Total JOHNNY-7 score (0-4 normal; 5-9 mild; 10-14 moderate; 15-21 severe): 0 Source: Developed by Drs. Oliver Petersen, Isabell Zeng, Hong Holloway and colleagues, with an educational rohini from [employer]. JOHNNY-7 Assessment Billing JOHNNY-7 Assessment Tool: JOHNNY-7 Assessment 79646 Review of Systems Const Denies body aches, Denies fatigue, Denies fever(s), Denies frequent falls, Denies headache(s) and Denies weakness Eyes Reports no additional complaints, Denies change in vision and Reports requires corrective lenses (not had glasses in several years) ENT Denies dysphagia, Denies dizziness, Denies facial pain, Denies headache(s), Denies nasal congestion and Denies odynophagia Card Denies chest pain, Denies syncope, Denies irregular heart rhythm, Denies leg edema, Denies lightheadedness and Denies dyspnea Resp Denies cough and Denies dyspnea GI Denies abdominal pain, Denies constipation, Denies dysphagia, Denies dyspepsia, Denies diarrhea, Denies nausea, Denies odynophagia and Denies vomiting Denies dysuria, Denies urinary frequency, Denies urinary hesitancy and Denies urinary urgency Musc Denies back pain and Denies myalgias Skin/Breast Reports system reviewed and no additional complaints, except as documented Neuro Denies dizziness, Denies syncope, Denies frequent falls, Denies headache(s) and Denies weakness Psych Reports no additional complaints Endo Denies fatigue Physical exam (Primary Care) Vital Signs: Last Vital Signs Pulse 80 08/29/24 14:39 BP 114/76 08/29/24 14:39 Pulse Ox 100 08/29/24 14:39 Oxygen Delivery Method Room Air 08/29/24 14:39 BMI result Body Mass Index 26.8 Tobacco/Smoking Status: Tobacco use Status Tobacco use date assessed 08/29/24 08/29/24 14:41 Patient Tobacco Use Status Never used Tobacco 08/29/24 14:41 e-Cigarette/Vaping Use Never Used 08/29/24 14:41 PHQ-9: PHQ-9 Score PHQ-9: Total score 0 08/29/24 14:50 Depression Screening Interpretation: Negative Thrive Assessment: Date of Thrive Assessment Date Thrive assessed 06/05/23 08/29/24 14:41 Currently or been in a relationship where the following occur: I choose not to answer Const General: cooperative, healthy appearing, comfortable and no acute distress Orientation/consciousness: patient oriented x3 HENMT Head: Yes normocephalic Ears: hearing grossly normal bilaterally, external ears normal, TM's normal bilaterally and EAC's normal General nose exam: Normal external nose present Face and sinus: Yes normal facial exam and Yes sinuses nontender Mouth: Normal oral and palatal mucosa present and tongue normal Throat: Yes posterior oropharynx normal Eyes General: appearance normal, both eyes and all related structures Conjunctivae: conjunctivae normal Pupils: Equal, round and reactive pupils present EOM: EOMs intact bilaterally and No Nystagmus present Neck Neck: Yes normal visual inspection, Yes full ROM and Yes no lymphadenopathy Chest Chest palpation & inspection: normal inspection of the chest Resp Effort & Inspection: normal respiratory effort Auscultation: clear to auscultation bilaterally, no crackles, no rales, no rhonchi, no wheezes and breath sounds present Cardio Rate: regular rate Rhythm: regular rhythm Peripheral pulses: radial pulses present and dorsalis pedis present GI Inspection: Yes normal to inspection and No Abdominal wall edema Palpation (GI): Soft to palpation, not firm and nontender Auscultation: normal bowel sounds Rectal Exam - Male: Yes deferred General: Yes no CVA tenderness Back/Spine/Pelvis Back: no CVA tenderness Skin General skin exam: no rashes or lesions noted Neuro General: patient oriented x3 Cranial nerves: Yes Equal, round and reactive pupils present, Yes Midline tongue present, Yes Ability to bilaterally elevate shoulders present and No Nystagmus present Gait exam (Neuro): Normal gait present Extrem General: Yes normal to inspection, Yes full ROM, No no pedal edema and No edema Psych Speech and movement: Normal speech and movement present Affect: normal affect Insight: Good insight present (Psych) Judgement: Good judgement present (Psych) Coding Level of Care Code Est Pt Prev Care 18-39y(34234) Diagnoses GERD (gastroesophageal reflux disease) K21.9 Annual physical exam Z00.00 Additional Codes JOHNNY-7 Assessment Billing - JOHNNY-7 Assessment Tool: JOHNNY-7 Assessment 70261 ([id number]) Assessment & Plan Assessment & Plan (1) GERD (gastroesophageal reflux disease): Code(s): K21.9 - Gastro-esophageal reflux disease without esophagitis Category: Medical Plan: Avoid trigger foods such as citrus, tomato products, soda, caffeine, spicy foods and other foods that may be irritating to your stomach. Avoid laying flat 3-4 hours after eating and elevate the head of the bed 30 degrees to prevent acid from moving into the esophagus. Continue on omeprazole and famotidine. Continue to follow up with GI. (2) Annual physical exam: Code(s): Z00.00 - Encounter for general adult medical examination without abnormal findings Category: Medical Plan: Patient is up-to-date on all recommended routine screenings and vaccinations for his age. Updated blood work ordered. No acute concerns today. Follow up in 1 year or sooner if new problems arise. Plan This note was constructed using voice recognition software. While every effort has been made to ensure accuracy and emulsion coater, still areas may have been included sometimes these areas may affect the content or meeting of the given symptoms. Total time spent caring for the patient today was 30 minutes. This includes time spent before the visit reviewing the chart, time spent during the visit, and time spent after the visit and documentation. Orders: Orders Complete Blood Count Auto Diff Today Z00.00 - Encounter for general adult medical examination without abnormal findings Free T4 (Free Thyroxine) Today Z00.00 - Encounter for general adult medical examination without abnormal findings TSH reflex Free T4 Today Z00.00 - Encounter for general adult medical examination without abnormal findings Vitamin D 25-OH (D2 and D3) Today Z00.00 - Encounter for general adult medical examination without abnormal findings Comprehensive Met. Panel Today Z00.00 - Encounter for general adult medical examination without abnormal findings Vitamin B12 and Folate Today Z00.00 - Encounter for general adult medical examination without abnormal findings Referrals Optometry Referral Z01.00 - Encounter for examination of eyes and vision without abnormal findings Medications: Changed From omeprazole 40 mg PO DAILY 30 days 30 caps 6RF To omeprazole 40 mg PO DAILY 90 days 90 caps 6RF
== END 2024-08-29 15:24 | disposition home or self-care (01) ==
DX: K21.9 Gastro-esophageal reflux disease without esophagitis (principal); Z00.00 Encounter for general adult medical examination without abnormal findings

== ENCOUNTER → 2024-08-29 14:32 | Outpatient (BNVA) | payer OTHER, SELFPAY | DX: Z00.01 Encounter for general adult medical examination with abnormal findings (principal); K21.9 Gastro-esophageal reflux disease without esophagitis; K44.9 Diaphragmatic hernia without obstruction or gangrene | CPT/HCPCS: 96127; 99395 ==

== ENCOUNTER 2024-09-27 11:41 | Outpatient (REF) | payer OTHER, SELFPAY ==
[2024-09-27 12:03] LABS: MANUAL DIFF FLAG NO
[2024-09-27 12:38] LABS: Basophils Percent Auto 0.5 % (0-2); Eosinophils Absolute Auto 0.4 X10*3/uL (0.0-0.4); Eosinophils Percent Auto 6.2 % (0-4); Hematocrit 43.1 % (42.0-52.0); Hemoglobin 14.1 g/dl (14.0-18.0); Imm Gran Abs Auto 0.03 X10*3/uL (0.00-0.03); Imm Gran Pct Auto 0.5 % (0.0-0.4); Lymphocytes Absolute Auto 1.5 X10*3/uL (1.2-4.9); Lymphocytes Percent Auto 23.1 % (20-40); Mean Corpuscular HGB Conc 32.7 g/dl (31.0-36.0); Mean Corpuscular Hemoglobin 27.5 pg (27.0-33.0); Mean Corpuscular Volume 84.2 fL (80.0-98.0); Monocytes Absolute Auto 0.5 X10*3/uL (0.1-1.2); Neutrophils Absolute Auto 4.1 x10*3/uL (2.0-8.3); Neutrophils Percent Auto 61.7 % (45-73); Platelet Count 290 X10*3/uL (160-400); Red Blood Count 5.12 X10*6/uL (4.60-5.80); Red Cell Distribution Width 11.5 % (11.0-16.0); White Blood Count 6.7 X10*3/uL (4.8-10.8)
[2024-09-27 13:41] LABS: Alanine Aminotransferase 26 U/L (0-40); Albumin Level 4.5 g/dL (3.5-5.0); Alkaline Phosphatase 69 U/L (39-117); Anion Gap 8 (12-20); Aspartate Amino Transferase 22 U/L (5-37); Bilirubin Total 0.5 mg/dL (0.0-1.0); Blood Urea Nitrogen 11 mg/dL (9-16); Calcium 9.2 mg/dL (8.4-10.2); Carbon Dioxide 31 mmol/L (22-29); Chloride 103 mmol/L (96-108); Estimated Glomerular Filt Rate > 60; Glucose Random 82 mg/dL (60-115); Potassium 3.7 mmol/L (3.3-5.1); Sodium 138 mmol/L (135-145); Total Protein 8.1 g/dL (6.5-8.0)
[2024-09-27 13:47] LABS: Free T4 (Free Thyroxine) 1.05 ng/dL (0.71-1.85); TSH reflex Free T4 0.85 uIU/mL (0.32-4.0)
[2024-09-27 13:56] LABS: Vitamin B12 1019 pg/mL (200-900)
[2024-10-03 13:54] LABS: Vitamin D 25-OH, D2 <4 ng/mL; Vitamin D 25-OH, D3 20 ng/mL; Vitamin D 25-OH, Total 20 ng/mL (30-100)
== END 2024-09-27 11:42 | disposition home or self-care (01) ==
LOC: HO.LAB 11:41
DX: Z00.00 Encounter for general adult medical examination without abnormal findings (principal)
CPT/HCPCS: 36415; 80053; 82306; 82607; 82746; 84439; 84443; 85025

== ENCOUNTER 2024-10-16 14:46 | Emergency (ER) | payer OTHER, SELFPAY ==
--- NOTE | ~2024-10-16 | XR_ITS ---
EXAMINATION: XR WRIST, RIGHT CLINICAL INFORMATION: injury COMPARISON: None available. TECHNIQUE: PA, lateral, and oblique views of the right wrist. FINDINGS: The bones and soft tissues are unremarkable. A small cyst may be present in the navicular. No fracture. Alignment is anatomic with normal joint spaces. No erosions or abnormal soft tissue calcifications. XR/XR wrist RT min 3V IMPRESSION: No evidence of an acute osseous injury. Electronically signed by: Christiano Conteh MD 10/16/2024 05:30 PM JELENA MCCARTHY
[2024-10-16 15:33] VITALS: BP 118/68; PULSE 80; RESP 16; TEMP 36.8; O2SAT 100; BMI 27.6
--- NOTE | 2024-10-16 18:36 | ED_ITS ---
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 Castaneda HPI Narrative: Right wrist/hand pain for a week and patient is right-hand dominant who was carrying heavy bags with his right hand hurt a pop when he supinate his right hand now he is complaining of right wrist pain with movement or lifting. Related Data Home Medications ?Medication ?Instructions ?Recorded ?Confirmed montelukast 10 mg tablet 10 mg PO DAILY 02/07/24 08/29/24 Previous Rx's ?Medication ?Instructions ?Recorded loratadine 10 mg tablet (Allergy 10 mg PO DAILY #30 tabs 06/05/23 Relief (loratadine)) acetaminophen 500 mg tablet 500 mg PO Q6H PRN fever or pain 12/09/23 (Tylenol Extra Strength) #14 tabs famotidine 40 mg tablet (Pepcid) 40 mg PO BEDTIME #30 tabs 02/07/24 omeprazole 40 mg capsule,delayed 40 mg PO DAILY 90 days #90 caps 08/29/24 release Allergies Allergy/AdvReac Type Severity Reaction Status Date / Time No Known Allergies Allergy Verified 10/16/24 15:40 Review of Systems Review of Systems: All other systems are reviewed and are negative Constitutional: Reports as per HPI and Reports no additional constitutional complaints Eyes: Reports as per HPI and Reports no additional eye complaints Reports system reviewed and no additional complaints, except as documented Cardiovascular: Reports as per HPI and Reports no additional cardiovascular com plaints Respiratory: Reports as per HPI and Reports no additional respiratory complaints Gastrointestinal: Reports as per HPI and Reports no additional gastrointestinal complaints Genitourinary: Reports no additional female genitourinary complaints Musculoskeletal: Reports no additional musculoskeletal complaints Skin/Breast: Reports system reviewed and no additional complaints, except as docu Psychiatric: Reports no additional psychiatric complaints Endocrine: Reports no additional endocrine complaints Hematologic/Lymphatic: Reports no additional hematologic/lymphatic complaints Allergic/Immunologic: Reports no additional allergic/immunologic complaints Reports system reviewed and no additional complaints, except as documented and Reports Abnormal speech present PMFSH Past Medical History Medical History GERD (gastroesophageal reflux disease) Lumbar back pain Surgical History History of esophagogastroduodenoscopy (EGD) Family History Family History Mother Hypertension Father Diabetes Social History Social History Housing: Apartment Alcohol intake: never Patient Tobacco Use Status: Never used Tobacco e-Cigarette/Vaping Use: Never Used Second Hand Smoke Exposure: No Advance Directives: No Advance Directives Information Provided: No service: No Current occupational status: employed Current occupational exposures/hazards: No Cognitive needs: No Hearing needs: No Vision needs: Yes Physical Exam Vital Signs: Vital Signs: Last Vital Signs Temp 98.3 F 10/16/24 15:33 Pulse 80 10/16/24 15:33 Resp 16 10/16/24 15:33 BP 118/68 10/16/24 15:33 Pulse Ox 100 10/16/24 15:33 O2 Del Method Room Air 10/16/24 15:33 BMI result Body Mass Index 27.6 Vital signs have been reviewed and appear to be correct. Blood pressure elevated. Heart rate normal. Respiratory rate normal. Temperature normal. Oxygen saturation normal. Appearance: Alert. Oriented X3. No acute distress. Head: Normal external exam. Normocephalic. Atraumatic. No Fox signs noted. No raccoon eyes noted Eyes: PERRLA. EOMI. Conjunctiva and sclera normal. Eyelids normal. ENT: TM's Normal. Pharynx normal. Uvula midline. Moist mucous membranes. No trismus noted. No drooling noted. No muffled voice noted. Neck: Normal inspection. Neck supple. FROM. No adenopathy. Thyroid Normal. No meningeal signs. No neck mass noted. CVS: Normal heart rate and rhythm. Heart sound normal. No murmurs noted. Pulses normal throughout. Respiratory: No respiratory distress. Painless inspiration. Breath sounds normal . No wheezes/rales/rhonchi noted. Chest nontender. No accessory muscle usage noted or decreased air movement noted. Abdomen: Soft and nontender. Bowel sounds normal in all 4 quadrants. No distention noted. No organomegaly noted. No visible injury noted. Back: No CVA tenderness. Full range of motion noted. Skin: Skin warm and dry. Normal skin color. Normal skin turgor. No rashes/lesions/lacerations noted. Extremities: Right wrist/hand: No deformity, normal inspection, neurovascularly intact with a strong pulse to the right radius and without deformity. Light touch sensation is intact all 5 fingers. Neuro: Oriented X 3. Cranial nerve exam: II-XII are grossly intact No motor deficit. No sensory deficit. Reflexes normal. Course Reevaluation(s) Reevaluation #1: Right wrist sprain. Rafa bandage. NSAIDs if needed for pain and swelling. Ice. If symptoms persist follow-up with Dr. Lee. Time: 18:40 Medical Decision Making Differential Diagnosis Differential Diagnoses: The differential diagnosis associated with the presentation includes (Right wrist fracture, wrist dislocation, neurovascular compromise.) Admission/Observation Consideration of admission/observation: Escalation of care including admission/observation considered Independent Interpretation I performed an independent interpretation of an: Plain X-Ray (Right wrist:No evidence of an acute osseous injury.) Radiology Impression Discussion of test interpretation with radiology: I have reviewed the radiologist's reading. Discharge Plan Discharge Clinical Impression: Right wrist sprain Patient Disposition: Home, Self-Care Instructions: Wrist Sprain (ED) Additional Instructions: rest, apply ice to the tender areas, take ibuprofen 200s mg tablet o [id number] every 6 hours if needed for pain, if the pain persist please contact Dr. Lee and make an appointment. Prescriptions: No Action acetaminophen [Tylenol Extra Strength] 500 mg tablet 500 mg PO Q6H PRN (Reason: fever or pain) Qty: 14 0RF loratadine [Allergy Relief (loratadine)] 10 mg tablet 10 mg PO DAILY Qty: 30 3RF montelukast 10 mg tablet 10 mg PO DAILY famotidine [Pepcid] 40 mg tablet 40 mg PO BEDTIME Qty: 30 6RF omeprazole 40 mg capsule,delayed release(DR/EC) 40 mg PO DAILY 90 Days Qty: 90 6RF Referrals: Joi Rivera PA-C [Primary Care Provider] - Lissette Lee MD [Physician] - Print Language: Upper Sorbian
[2024-10-16 18:58] VITALS: BP 118/68; PULSE 80; RESP 16; TEMP 36.8; O2SAT 100
== END 2024-10-16 18:58 | disposition home or self-care (01) ==
PROVIDERS: Emergency Provider Emergency Medicine
DX: S63.501A Unspecified sprain of right wrist, initial encounter (principal); X50.0XXA Overexertion from strenuous movement or load, initial encounter; Y93.89 Activity, other specified; Y92.9 Unspecified place or not applicable; Y99.9 Unspecified external cause status
CPT/HCPCS: 73110; 99282; 99283

== ENCOUNTER 2024-11-08 14:32 | Outpatient (AMB) | payer OTHER, SELFPAY ==
--- NOTE | 2024-11-08 14:35 | A.OFFVIS_ITS ---
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 Patient reports feeling a pop in his right wrist when he was carrying heavy bags. He mentions that his pain is better today. Patient reports has tried Ibuprofen, topical gel, warm compresses and icing which gave him relief. Denies numbness and tingling. 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 The patient reports that at that time, he was attempting to lift a heavy bag while at work, and he felt a popping sensation in his right wrist. The patient reports that he also began to experience pain at that time, so he was evaluated in the Emergency Department, where imaging was taken revealing no fracture or acute bony abnormality. Patient was diagnosed with a right wrist sprain. Patient reports that today, his symptoms have nearly completely resolved, but he does experience some occasional tightness in his right wrist with lifting or ROM, particularly on the ulnar aspect. Denies any numbness or tingling in the RUE. No other acute complaints or concerns at this time. 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 Neuro: Normal sensation of the tips of all digits of the right hand at this time Vascular: Cap refill brisk Pain: No tenderness to palpation of the radial styloid, ulnar styloid, DRUJ, or elsewhere on the R hand or wrist ROM: Patient is able to flex and extend all digits of the Skin: No lacerations or abrasions. General: No ecchymosis, erythema, or evidence of infection. Psych: Appears grossly normal Affect normal Attitude cooperative Assessment & Plan Assessment & Plan (1) Right wrist sprain: Code(s): S63.501A - Unspecified sprain of right wrist, initial encounter Category: Medical Plan 1. Right wrist sprain DOI 10/16/24 Patient appears to be recovering very well from his injury Patient is educated about the typical recovery course Patient is educated that the fact that he is not experiencing any pain and just some minor tightness is indicative that he is recovering from his injury Patient is offered a referral to OT for his wrist tightness, but declines Patient is provided a velcro wrist splint to be worn if he begins to experience any significant pain in his R wrist moving forward Patient is amenable to this plan Patient will follow up as needed with any acute concerns. Coding Level of Care Code New Pt Level 3 (44746) Diagnoses Right wrist sprain S63.501A
== END 2024-11-08 15:13 | disposition home or self-care (01) ==
DX: S63.501A Unspecified sprain of right wrist, initial encounter (principal)
CPT/HCPCS: 99203

== ENCOUNTER → 2024-11-08 14:32 | Outpatient (BNVA) | payer OTHER, SELFPAY | DX: S63.501A Unspecified sprain of right wrist, initial encounter (principal) | CPT/HCPCS: 99202 ==

== ENCOUNTER 2025-01-08 14:26 | Outpatient (AMB) | payer OTHER, SELFPAY ==
[2025-01-08 14:30] VITALS: BP 110/78; PULSE 79; O2SAT 99; BMI 26.6
--- NOTE | 2025-01-08 14:30 | A.OFFPC_ITS ---
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 Required: No Accompanied by: Self / Same As Patient Allergies No Known Allergies Allergy (Verified 01/08/25 14:36) Medication List - Last Reconciled 01/08/25 by Joi Rivera PA-C acetaminophen (Tylenol Extra Strength) 500 mg PO Q6H PRN famotidine (Pepcid) 40 mg PO BEDTIME loratadine (Allergy Relief (loratadine)) 10 mg PO DAILY montelukast 10 mg PO DAILY omeprazole 40 mg PO DAILY 90 days Tobacco use date assessed: 01/08/25 Dental Screening Dental Screen Date: 01/08/25 Did you have a dental visit in the last 12 months?: No Did you have a dental problem in the last 6 months where you did not have access to dental care?: No Was dental information given to patient?: No HPI pain in wrist HPI Details 29-year-old male with past medical histo ry of GERD last seen 08/2024 coming in for acute problem.? In review of the notes, patient was seen by [facility] 11/10/2024 for right wrist sprain after injury occurring on 10/16/2024 he was referred to occupational therapy advised to use a Velcro wrist splint as needed.? harness and bag inspector Shayy [id number] was used for the duration of this visit. Presenting with left wrist pain. Previously visited for right wrist pain, managed with conservative measures. Pain in the right wrist had improved, though the patient now experiences similar symptoms in the left wrist. Engages in routine stretching and gym activities but lacks a structured physical therapy regimen. 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 1. Little interest or pleasure in doing things: not at all 2. Feeling down, depressed, or hopeless: not at all 3. Trouble falling or staying asleep, or sleeping too much: not at all 4. Feeling tired or having little energy: not at all 5. Poor appetite or overeating: not at all 6. Feeling bad about yourself - or that you are a failure or have let yourself or your family down: not at all 7. Trouble concentrating on things, such as reading the newspaper or watching television: not at all 8. Moving or speaking so slowly that other people could have noticed. Or the opposite - being so fidgety or restless that you have been moving around a lot more than usual: not at all 9. Thoughts that you would be better off or of hurting yourself in some way: not at all Total score: 0 Depression Screening Interpretation: Negative Depression Screening Done: Yes 22289 - PHQ-9 Billing: Yes Source: Developed by Drs. Oliver Petersen, Isabell Zeng, Hong Holloway and colleagues, with an educational rohini from [employer]. Thrive Questionnaire Date Thrive assessed: 01/08/25 I am a: Patient What is your living situation today?: I choose not to answer this question Within the past 12 months, did the food you bought not last and you didn't have the money to get more?: I choose not to answer this question Within the past 12 months, did you worry whether your food would run out before you got money to buy more?: I choose not to answer this question Do you have trouble paying for medicines?: I choose not to answer this question Do you have trouble getting transportation to medical appointments?: No Do you have trouble paying your heating and electricity bill?: No Do you have trouble taking care of your child, family member or friend?: No Do you have trouble with day-to-day activities such as bathing, preparing meals, shopping, managing finances, etc.?: I choose not to answer this question Are you currently unemployed and looking for a job?: I choose not to answer this question Are you interested in more education?: I choose not to answer this question Please select the resources that you would like help with: None Currently or been in a relationship where the following occur: I choose not to answer THRIVE Score: 0 AUDIT C Alcohol Use Questionnaire (AUDIT-C) 1. How often do you have a drink containing alcohol?: Never 3. How often do you have six or more drinks on one occasion?: Never Total Score: 0 JOHNNY-7 AMB Questionnaire JOHNNY-7 Date JOHNNY - 7 assessed: 01/08/25 Feeling nervous, anxious, or on edge: 0 = Not at all Not being able to stop or control worryin = Not at all Worrying too much about different things: 0 = Not at all Trouble relaxin = Not at all Being so restless that it is hard to sit still: 0 = Not at all Becoming easily annoyed or irritable: 0 = Not at all Feeling afraid as if something awful might happen: 0 = Not at all Total JOHNNY-7 score (0-4 normal; 5-9 mild; 10-14 moderate; 15-21 severe): 0 Source: Developed by Drs. Oliver Petersen, Isabell Zeng, Hong Holloway and colleagues, with an educational rohini from [employer]. JOHNNY-7 Assessment Billing JOHNNY-7 Assessment Tool: JOHNNY-7 Assessment 32417 Review of Systems Const Denies body aches, Denies chills, Denies fever(s), Denies headache(s) and Denies poor appetite Eyes Reports no additional complaints ENT Denies dysphagia, Denies dizziness, Denies headache(s) and Denies odynophagia Card Denies chest pain, Denies syncope, Denies edema, Denies irregular heart rhythm, Denies lightheadedness and Denies dyspnea Resp Denies cough and Denies dyspnea GI Denies abdominal pain, Denies constipation, Denies dysphagia, Denies diarrhea, Denies nausea, Denies odynophagia and Denies vomiting Reports no additional complaints Musc Reports no additional complaints and Denies abnormal gait Skin/Breast Reports system reviewed and no additional complaints, except as documented Neuro Denies abnormal gait, Denies dizziness, Denies syncope and Denies headache(s) Psych Reports no additional complaints Physical exam (Primary Care) Vital Signs: Last Vital Signs Pulse 79 01/08/25 14:30 BP 110/78 01/08/25 14:30 Pulse Ox 99 01/08/25 14:30 Oxygen Delivery Method Room Air 01/08/25 14:30 BMI result Body Mass Index 26.6 Tobacco/Smoking Status: Tobacco use Status Tobacco use date assessed 01/08/25 01/08/25 14:35 Patient Tobacco Use Status Never used Tobacco 01/08/25 14:35 e-Cigarette/Vaping Use Never Used 01/08/25 14:35 PHQ-9: PHQ-9 Score PHQ-9: Total score 0 01/08/25 14:36 Depression Screening Interpretation: Negative Thrive Assessment: Date of Thrive Assessment Date Thrive assessed 01/08/25 01/08/25 14:35 Currently or been in a relationship where the following occur: I choose not to answer Const General: cooperative, healthy appearing, comfortable and no acute distress Orientation/consciousness: patient oriented x3 HENMT Head: Yes normocephalic Ears: hearing grossly normal bilaterally General nose exam: Normal external nose present Eyes General: appearance normal, both eyes and all related structures Conjunctivae: conjunctivae normal Neck Neck: Yes full ROM and Yes no lymphadenopathy Resp Effort & Inspection: normal respiratory effort Cardio Rate: regular rate Skin General skin exam: no rashes or lesions noted Neuro General: patient oriented x3 Gait exam (Neuro): Normal gait present Extrem Other: Intact strength, sensation and pulses in bilateral upper extremities. No tenderness to palpation over left wrist pain with active flexion of the left wrist. General: Yes normal to inspection, Yes full ROM and No edema Psych Affect: normal affect Attitude: cooperative Insight: Good insight present (Psych) Judgement: Good judgement present (Psych) Coding Level of Care Code Est Pt Level 3 (81297) Diagnoses Left wrist pain M25.532 Additional Codes JOHNNY-7 Assessment Billing - JOHNNY-7 Assessment Tool: JOHNNY-7 Assessment 40849 ([id number]) PHQ-9 - 61141 - PHQ-9 Billing: Yes ([id number]) Assessment & Plan Assessment & Plan (1) Left wrist pain: Code(s): M25.532 - Pain in left wrist Category: Medical Plan: I discussed with the patient the management of his bilateral wrist pain, suggesting continued stretching and resting the affected areas. If the wrist pain persists, diagnostic imaging, such as an X-ray, may be required. I recommended utilizing NSAIDs like Tylenol or ibuprofen to manage pain and inflammation and advised follow-up if there is no improvement or if symptoms escalate. Discussed the low likelihood of arthritis due to his young age, reassuring him about familial concerns. Plan This note was constructed using voice recognition software. While every effort has been made to ensure accuracy and energy projects lead, still areas may have been included sometimes these areas may affect the content or meeting of the given symptoms. Total time spent caring for the patient today was 20 minutes. This includes time spent before the visit reviewing the chart, time spent during the visit, and time spent after the visit and documentation. Patient was informed and verbally consented to the use of an ambient scribe for clinic note documentation during this visit. Orders: Orders Rheumatoid Factor Today M25.532 - Pain in left wrist Medications: New cholecalciferol (vitamin D3) 25 mcg PO DAILY 90 caps 3RF
--- OUTSIDE RECORDS SUMMARY | 2025-01-08 17:21 | XMS_ITS | Clinical Summary ---
Author Organization [employer] Address [address] [place] [address] Care Team Providers Care Power Grader Operator Name Role Phone Stephie Tony DIRECT SALES REPRESENTATIVE Primary Care Provider [phone] Social History Tobacco Use Types Packs/Day Years Used Date Smoking Tobacco: Never Assessed Sex and Gender Information Value Date Recorded Sex Assigned at Male 09/02/2022 5:31 PM EDT Legal Sex Male 5:31 PM EDT Gender Identity Male 09/02/2022 5:31 PM EDT Sexual Orientation Straight 09/02/2022 5: 31 PM EDT Last Filed Vital Signs Vital Sign Reading Time Taken Comments Blood Pressure 126/76 11/05/2019 9:20 AM EST Pulse 103 11/05/2019 9:20 AM EST Temperature - - Respiratory Rate - - Oxygen Saturation 100% 11/05/2019 9:20 AM EST Inhaled Oxygen Concentration - - Weight 74.4 kg (164 lb) 11/05/2019 9:20 AM EST Height 180.3 cm (5' 11 ) 11/05/2019 9:20 AM EST Body Mass Index 22.87 11/05/2019 9:20 AM EST Plan of Treatment Health Maintenance Due Date Last Done Comments Depression Screening 1996 Alcohol/Substance Use Screening 2008 Tobacco Screening 2008 Family Planning (PISQ) 01/18/2011 DTaP/Tdap/Td Vaccines (1 - Tdap) 01/18/2015 Hepatitis B Vaccines (1 of 3 - 19+ 3-dose series) 01/18/2015 COVID-19 Vaccine ( - 2023-2 5 season) 2024 Influenza Vaccine (#1) 2024 Zoster Vaccines (1 of 2) 01/18/2046 RSV Patients and Pa tients Aged 60 years or older (1 - 1-dose 75+ series) 01/18/2071 HIB Vaccines Aged Out No longer eligi ble based on patient's age to complete this topic HPV Vaccines Aged Out No longer eligi ble based on patient's age to complete this topic Hepatitis A Vaccines Aged Out No long er eligible based on patient's age to complete this topic IPV Vaccines Aged Out No longer eligi ble based on patient's age to complete this topic Meningococcal Vaccine Aged Out No haylee thee eligible based on patient's age to complete this topic Pneumococcal Vaccine: Pediat rics (0 to 5 Years) and At-Risk Patients (6 to 49) Years) Aged Out No longer eligible b ased on patient's age to complete this topic RSV under 20 months Aged Out No longe r eligible based on patient's age to complete this topic Rotavirus Vaccines Aged Out No longer eligible based on patient's age to complete this topic Care Teams Power Grader Operator Relationship Specialty Start Date End Date Stephie Tony NP [address] [place] [id number] PCP - General Family Medicine 12/22/22
== END 2025-01-08 14:57 | disposition home or self-care (01) ==
DX: M25.532 Pain in left wrist (principal)

== ENCOUNTER → 2025-01-08 14:26 | Outpatient (BNVA) | payer OTHER, SELFPAY | DX: M25.532 Pain in left wrist (principal) | CPT/HCPCS: 96127; 99212 ==

== ENCOUNTER 2025-06-11 15:23 | Outpatient (AMB) | payer OTHER, SELFPAY ==
--- NOTE | 2025-06-11 15:30 | A.OFFVIS_ITS ---
Vital Signs 06/11/25 15:46 Height 5 ft 10 in Weight 180 lb 5.41 oz BMI 25.9 Intake Visit Reasons: gerd Intake Note: Patient in office today in follow up of GERD. CC: Patient reports doing well and denies having any GI symptoms today. Electric Stove Mechanic Required: Yes Electric Stove Mechanic Language: Cook Islander Allergies No Known Allergies Allergy (Verified 01/08/25 14:36) HPI HPI gerd: Details: Assessment & Plan (1) GERD (gastroesophageal reflux disease): Code(s): K21.9 - Gastro-esophageal reflux disease without esophagitis Category: Medical (2) Nausea: Comment: just in the am with acid Code(s): R11.0 - Nausea Category: Medical Plan [place] # Michel Cheung He says that when he woke up the left side of his jaw was swollen like someone punched me. This has improved after 2 days. He continues to do well on his regimen of omeprazole 40 mg in the morning and famotidine 40 mg at night. Given ongoing (although not SSBE) esophagitis he will need life long PPI therapy and was educated as such. He also has a 3cc sliding HH. He was educated why these are preferred to be treated via medication rather than surgery. He asks about diet and GERD list printed. He continues on his omeprazole in the morning and famotidine at night and for now this is controlling him well. ROV 6 mos. Medications: Refilled omeprazole 40 mg PO DAILY 30 caps 6RF 30 days famotidine (Pepcid) 40 mg PO BEDTIME 30 tabs 6RF K21.9 - Gastro-esophageal reflux disease without esophagitis TODAY'S VISIT [place]er # Betty live He continues on his omeprazole in the morning and famotidine at night with good control of the symptoms. He remains satisfied with his GI regimen. 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 Current occupational exposures/hazards: No Cognitive needs: No Hearing needs: No Vision needs: Yes Review of Systems Const Denies fatigue, Denies fever(s), Denies night sweats, Denies poor appetite and Denies weight loss ENT Reports Normal hearing present, Denies dental pain, Denies dysphagia, Denies hearing loss, Denies mouth pain, Denies odynophagia, Denies throat swelling, Denies tongue swelling and Reports other (Dentition adequate) Card Reports no additional complaints Resp Reports no additional complaints GI Details: Denies abdominal pain, Denies melena, Denies bloating, Denies hematochezia, Denies constipation, Denies GI cramping, Denies dysphagia, Denies excessive flatus, Denies early satiety, Reports heartburn, Denies diarrhea, Denies nausea, Denies odynophagia, Denies vomiting and Denies hematemesis Skin/Breast Denies pruritus, Denies lesions, Denies rash and Denies jaundice Neuro Reports Normal hearing present and Denies Abnormal speech present Endo Denies fatigue Aller/Immun Denies throat swelling and Denies tongue swelling Physical Exam Vital Signs: BMI result Body Mass Index 25.9 Const General: cooperative, no acute distress, well developed and well groomed Nutritional Appearance: average body habitus and well nourished Orientation/consciousness: oriented to person, oriented to place and oriented to time Limitations: language barrier HEENT Head: Yes normocephalic and Yes atraumatic Eyes General: appearance normal, both eyes and all related structures Pupils: Equal, round and reactive pupils present Neck Neck: Yes normal visual inspection and Yes no lymphadenopathy Thyroid: Thyroid normal Resp Effort & Inspection: normal respiratory effort and able to speak in complete sentences Auscultation: clear to auscultation bilaterally Cardio Rate: regular rate Rhythm: regular rhythm Heart sounds: Normal, physiologic split S2 sound present Peripheral pulses: radial pulses present and posterior tibial pulses present GI Inspection: No distended and No Abdominal panniculus present Palpation (GI): Soft to palpation, nontender, no guarding, not rigid and No hepatosplenomegaly present Percussion: Yes normal to percussion Auscultation: normal bowel sounds Rectal Exam - Male: Yes deferred Skin General skin exam: no rashes or lesions noted, turgor normal, skin not dry, no jaundice, No spider nevi and no striae Rashes: no rashes Nails: normal Neuro General: oriented to person, oriented to place and oriented to time Cranial nerves: Yes Equal, round and reactive pupils present and Yes Normal hearing present Speech: No Abnormal speech present Extrem General: Yes normal to inspection, No clubbing, No cyanosis and No edema Psych Appearance: grossly normal and well kempt Mental Status: mental status grossly normal Speech and movement: Normal speech and movement present Affect: normal affect Attitude: cooperative Thought process: Normal thought process present and not confabulating Thought content: Normal thought content present Insight: Good insight present (Psych) Judgement: Good judgement present (Psych) Assessment & Plan Assessment & Plan (1) GERD (gastroesophageal reflux disease): Code(s): K21.9 - Gastro-esophageal reflux disease without esophagitis Category: Medical (2) Nausea: Comment: just in the am with acid Code(s): R11.0 - Nausea Category: Medical Plan [place] # V live He continues on his omeprazole in the morning and famotidine at night with good control of the symptoms. He remains satisfied with his GI regimen. Return office visit in 6 months Medications: Refilled famotidine (Pepcid) 40 mg PO BEDTIME 30 tabs 6RF K21.9 - Gastro-esophageal reflux disease without esophagitis omeprazole 40 mg PO DAILY 90 caps 6RF 90 days Coding Level of Care Code Est Pt Level 3 (08170) Diagnoses GERD (gastroesophageal reflux disease) K21.9 Nausea R11.0
[2025-06-11 15:46] VITALS: BMI 25.9
--- OUTSIDE RECORDS SUMMARY | 2025-06-11 15:53 | XMS_ITS | Clinical Summary ---
Author Organization [employer] Address [address] [facility] [address] [place] [address] Care Team Providers Care Nuclear Design Engineer Name Role Phone Unavailable Primary Care Provider Unavailabl e Encounters Date Type Department Care Team Description 03/20/2025 Telephone Family Medicine [address] [place] [address] Stephie Tony NP Change PCP (Patient has not been seen in past two years or more- Please inactivate in MMIS.) from Last 3 Months Social History Tobacco Use Types Packs/Day Years [...] Date Last Done Comments Depression Screening 1996 Disability Screening 1996 Alcohol/Substance Use Screening 2008 Tobacco Screening 2008 Family Planning (PISQ) 01/18/2011 HPV Vaccines (1 - Male 3-dos e series) 01/18/2011 DTaP/Tdap/Td Vaccines (1 - Tdap) 01/18/2015 Hepatitis B Vaccines (1 of 3 - 19+ 3-dose series) 01/18/2015 COVID-19 Vaccine (2023-2 5 season) 2024 Influenza Vaccine (#1) 2025 Zoster Vaccines (1 of 2) 01/18/2046 RSV [...] patient's age to complete this topic Meningococcal B Vaccine Aged Out No l onger eligible based on patient's age to complete this topic Meningococcal Vaccine Aged Out No haylee thee eligible based on patient's age to complete this topic Pneumococcal Vaccine: Pediat rics (0 to 5 Years) and At-Risk Patients (6 to 49) Years Aged Out No longer eligible b ased on patient's age to complete this topic RSV under 20 months Aged Out No longe r eligible based on patient's age to complete this topic Rotavirus Vaccines Aged Out No longer eligible based on patient's age to complete this topic
== END 2025-06-11 16:12 | disposition home or self-care (01) ==
LOC: HO.HGI 15:24
PROVIDERS: Visit Provider Nurse Practitioner
DX: K21.9 Gastro-esophageal reflux disease without esophagitis (principal); R11.0 Nausea
CPT/HCPCS: 99213

== ENCOUNTER → 2025-06-11 15:23 | Outpatient (BNVA) | payer OTHER, SELFPAY | PROVIDERS: Visit Provider Nurse Practitioner | DX: K21.9 Gastro-esophageal reflux disease without esophagitis (principal); R11.0 Nausea | CPT/HCPCS: 99212 ==

== ENCOUNTER 2025-09-01 15:51 | Outpatient (AMB) | payer OTHER, SELFPAY ==
[2025-09-01 15:53] VITALS: BP 126/82; PULSE 76; TEMP 36.5; O2SAT 98; BMI 25.4
--- NOTE | 2025-09-01 15:53 | A.OFFPC_ITS ---
Vital Signs 09/01/25 15:53 Height 5 ft 10 in Weight 177 lb BMI 25.4 BP 126/82 Blood Pressure Location Lt brachial Position Sitting Pulse 76 Pulse Source Pulse Oximeter Temp 97.7 F Temp Source Temporal Artery Scan Pulse Oximetry (%) 98 Oxygen Delivery Method Room Air Intake Visit Reasons: annual exam Designated Broker Required: Yes Designated Broker Language: [place] Allergies No Known Allergies Allergy (Verified 09/01/25 15:59) Medication List - Last Reconciled 09/01/25 by Joi Rivera PA-C acetaminophen (Tylenol Extra Strength) 500 mg PO Q6H PRN famotidine (Pepcid) 40 mg PO BEDTIME loratadine (Allergy Relief (loratadine)) 10 mg PO DAILY montelukast 10 mg PO DAILY omeprazole 40 mg PO DAILY 90 days Tobacco use date assessed: 09/01/25 Dental Screening Dental Screen Date: 09/01/25 Did you have a dental visit in the last 12 months?: Yes Did you have a dental problem in the last 6 months where you did not have access to dental care?: No Was dental information given to patient?: Patient has dentist HPI annual exam HPI Details 30-year-old male with past medical histo ry of GERD last seen 01/2025 coming in for annual exam. In review of the notes, patient was seen by Gastro 06/2025 continued on omeprazole and famotidine and follow up in 6 months. cabin man Deysi [id number] was used for the duration of this visit. Presenting for an annual wellness visit. The main concern is intermittent anxiety and associated difficulty sleeping, which occurs more than once a week but not daily. He admits to using his phone or watching TV in bed, typically attempts to sleep between 8:30 PM and 9:00 PM, and wakes up at 4:00 AM for work. 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 1. Little interest or pleasure in doing things: not at all 2. Feeling down, depressed, or hopeless: not at all 3. Trouble falling or staying asleep, or sleeping too much: several days 4. Feeling tired or having little energy: not at all 5. Poor appetite or overeating: not at all 6. Feeling bad about yourself - or that you are a failure or have let yourself or your family down: not at all 7. Trouble concentrating on things, such as reading the newspaper or watching television: not at all 8. Moving or speaking so slowly that other people could have noticed. Or the opposite - being so fidgety or restless that you have been moving around a lot more than usual: not at all 9. Thoughts that you would be better off or of hurting yourself in some way: not at all Total score: 1 Depression Screening Interpretation: Negative Depression Screening Done: Yes Source: Developed by Drs. Oliver Petersen, Isabell Zeng, Hong Holloway and colleagues, with an educational rohini from [employer]. Thrive Questionnaire Date Thrive assessed: 01/08/25 I am a: Patient What is your living situation today?: I have a steady place to live Within the past 12 months, did the food you bought not last and you didn't have the money to get more?: Often true Within the past 12 months, did you worry whether your food would run out before you got money to buy more?: Often true Do you have trouble paying for medicines?: I choose not to answer this question Do you have trouble getting transportation to medical appointments?: No Do you have trouble paying your heating and electricity bill?: I choose not to answer this question Do you have trouble taking care of your child, family member or friend?: No Do you have trouble with day-to-day activities such as bathing, preparing meals, shopping, managing finances, etc.?: No Are you currently unemployed and looking for a job?: No Are you interested in more education?: I choose not to answer this question Please select the resources that you would like help with: None Currently or been in a relationship where the following occur: No concerns reported THRIVE Score: 2 AUDIT C Alcohol Use Questionnaire (AUDIT-C) 1. How often do you have a drink containing alcohol?: Never 3. How often do you have six or more drinks on one occasion?: Never Total Score: 0 JOHNNY-7 AMB Questionnaire JOHNNY-7 Date JOHNNY - 7 assessed: 01/08/25 Feeling nervous, anxious, or on edge: 0 = Not at all Not being able to stop or control worryin = Not at all Worrying too much about different things: 0 = Not at all Trouble relaxin = Not at all Being so restless that it is hard to sit still: 0 = Not at all Becoming easily annoyed or irritable: 0 = Not at all Feeling afraid as if something awful might happen: 0 = Not at all Total JOHNNY-7 score (0-4 normal; 5-9 mild; 10-14 moderate; 15-21 severe): 0 Source: Developed by Drs. Oliver Petersen, Isabell Zeng, Hong Holloway and colleagues, with an educational rohini from [employer]. Review of Systems Const Denies body aches, Denies chills, Denies fever(s), Denies headache(s) and Denies poor appetite Eyes Reports no additional complaints ENT Denies dysphagia, Denies dizziness, Denies headache(s) and Denies odynophagia Card Denies chest pain, Denies syncope, Denies edema, Denies irregular heart rhythm, Denies lightheadedness and Denies dyspnea Resp Denies cough and Denies dyspnea GI Denies abdominal pain, Denies constipation, Denies dysphagia, Denies diarrhea, Denies nausea, Denies odynophagia and Denies vomiting Reports no additional complaints Musc Reports no additional complaints and Denies abnormal gait Skin/Breast Reports system reviewed and no additional complaints, except as documented Neuro Denies abnormal gait, Denies dizziness, Denies syncope and Denies headache(s) Psych Reports no additional complaints Physical exam (Primary Care) Vital Signs: Last Vital Signs Temp 97.7 F 09/01/25 15:53 Pulse 76 09/01/25 15:53 BP 126/82 09/01/25 15:53 Pulse Ox 98 09/01/25 15:53 Oxygen Delivery Method Room Air 09/01/25 15:53 BMI result Body Mass Index 25.4 Tobacco/Smoking Status: Tobacco use Status Tobacco use date assessed 09/01/25 09/01/25 15:56 Patient Tobacco Use Status Never used Tobacco 09/01/25 15:56 e-Cigarette/Vaping Use Never Used 09/01/25 15:56 PHQ-9: PHQ-9 Score PHQ-9: Total score 1 09/02/25 08:07 Depression Screening Interpretation: Negative Thrive Assessment: Date of Thrive Assessment Date Thrive assessed 01/08/25 09/01/25 15:56 Currently or been in a relationship where the following occur: No concerns reported Const General: cooperative, healthy appearing, comfortable and no acute distress Orientation/consciousness: patient oriented x3 HENMT Head: Yes normocephalic Ears: hearing grossly normal bilaterally General nose exam: Normal external nose present Face and sinus: Yes normal facial exam and Yes sinuses nontender Mouth: Normal oral and palatal mucosa present and tongue normal Throat: Yes posterior oropharynx normal Eyes General: appearance normal, both eyes and all related structures Conjunctivae: conjunctivae normal Pupils: Equal, round and reactive pupils present EOM: EOMs intact bilaterally and No Nystagmus present Neck Neck: Yes full ROM and Yes no lymphadenopathy Chest Chest palpation & inspection: normal inspection of the chest Resp Effort & Inspection: normal respiratory effort Auscultation: clear to auscultation bilaterally, no crackles, no rales, no rhonchi and no wheezes Cardio Rate: regular rate Rhythm: regular rhythm Peripheral pulses: radial pulses present and dorsalis pedis present GI Inspection: Yes normal to inspection and No Abdominal wall edema Palpation (GI): Soft to palpation, not firm and nontender Auscultation: normal bowel sounds Rectal Exam - Male: Yes deferred General: Yes no CVA tenderness Back/Spine/Pelvis Back: no CVA tenderness Skin General skin exam: no rashes or lesions noted Neuro General: patient oriented x3 Cranial nerves: Yes Equal, round and reactive pupils present, Yes Midline tongue present, Yes Ability to bilaterally elevate shoulders present and No Nystagmus present Gait exam (Neuro): Normal gait present Extrem General: Yes normal to inspection, Yes full ROM and No edema Psych Speech and movement: Normal speech and movement present Affect: normal affect Attitude: cooperative Insight: Good insight present (Psych) Judgement: Good judgement present (Psych) Coding Level of Care Code Est Pt Prev Care 18-39y(50470) Diagnoses Annual physical exam Z00.00 GERD (gastroesophageal reflux disease) K21.9 Insomnia G47.00 Left wrist pain M25.532 Assessment & Plan Assessment & Plan (1) Annual physical exam: Code(s): Z00.00 - Encounter for general adult medical examination without abnormal findings Category: Medical Plan: Patient is up-to-date on all recommended routine screenings and vaccinations for his age. He is declining flu shot today. Healthy diet and regular exercise is encouraged. Plan to follow up yearly or sooner as needed or pending blood work evaluation (2) GERD (gastroesophageal reflux disease): Code(s): K21.9 - Gastro-esophageal reflux disease without esophagitis Category: Medical Plan: Avoid trigger foods such as citrus, tomato products, soda, caffeine, spicy foods and other foods that may be irritating to your stomach. Avoid laying flat 3-4 hours after eating and elevate the head of the bed 30 degrees to prevent acid from moving into the esophagus. Continue on omeprazole and famotidine at this time and continue to follow with GI. (3) Insomnia: Code(s): G47.00 - Insomnia, unspecified Category: Medical Plan: The patient reports difficulty sleeping, which is attributed to anxiety. Sleep hygiene was discussed, including avoiding the use of electronic devices such as phones or TV in bed. The patient agreed to a trial of medication, and a prescription for hydroxyzine 25 mg tablets was sent to the pharmacy. The patient was instructed to take one tablet as needed for sleep, starting at a low dose to mitigate potential morning grogginess. The patient was advised to follow up sooner than one year if sleep issues do not improve. (4) Left wrist pain: Code(s): M25.532 - Pain in left wrist Category: Medical Plan: Resolved at this time. Plan This note was constructed using voice recognition software. While every effort has been made to ensure accuracy and sheet metal welder, still areas may have been included sometimes these areas may affect the content or meeting of the given symptoms. Total time spent caring for the patient today was 30 minutes. This includes time spent before the visit reviewing the chart, time spent during the visit, and time spent after the visit and documentation. Patient was informed and verbally consented to the use of an ambient scribe for clinic note documentation during this visit. Orders: Orders Complete Blood Count Auto Diff 09/01/25 J30.2 - Other seasonal allergic rhinitis, Z13.0 - Encounter for screening for diseases of the blood and blood- forming organs and certain disorders involving the immune mechanism Comprehensive Met. Panel 09/01/25 K21.9 - Gastro-esophageal reflux disease without esophagitis, Z00.00 - Encounter for general adult medical examination without abnormal findings TSH reflex Free T4 09/01/25 K21.9 - Gastro-esophageal reflux disease without esophagitis, Z13.29 - Encounter for screening for other suspected endocrine disorder Vitamin B12 and Folate 09/01/25 K21.9 - Gastro-esophageal reflux disease without esophagitis, Z13.21 - Encounter for screening for nutritional disorder Vitamin D 25-OH Total 09/01/25 K21.9 - Gastro-esophageal reflux disease without esophagitis, Z13.21 - Encounter for screening for nutritional disorder Lipid Panel 09/01/25 Z13.220 - Encounter for screening for lipoid disorders Medications: New hydroxyzine HCl 25 mg PO BEDTIME 90 tabs 0RF
== END 2025-09-01 16:23 | disposition home or self-care (01) ==
LOC: HO.HMCH 15:52
DX: Z00.00 Encounter for general adult medical examination without abnormal findings (principal); K21.9 Gastro-esophageal reflux disease without esophagitis; G47.00 Insomnia, unspecified; M25.532 Pain in left wrist

== ENCOUNTER → 2025-09-01 15:51 | Outpatient (BNVA) | payer OTHER, SELFPAY | DX: Z00.00 Encounter for general adult medical examination without abnormal findings (principal); K21.9 Gastro-esophageal reflux disease without esophagitis; F41.9 Anxiety disorder, unspecified; G47.00 Insomnia, unspecified; M25.532 Pain in left wrist | CPT/HCPCS: 99395 ==

== ENCOUNTER 2025-09-19 06:56 | Outpatient (REF) | payer OTHER, SELFPAY ==
--- OUTSIDE RECORDS SUMMARY | 2025-09-19 06:58 | XMS_ITS | Clinical Summary ---
Author Organization [employer] Address [address] [facility] [address] [place] [address] Care Team Providers Care Auto Service Advisor Name Role Phone Unavailable Primary Care Provider Unavailabl e Social History Tobacco Use Types Packs/Day Years [...] - 19+ 3-dose series) 01/18/2015 COVID-19 Vaccine (1 - 2023-2 5 season) 2025 Influenza Vaccine (#1) 2025 Zoster Vaccines (1 [...]
[2025-09-19 07:09] LABS: MANUAL DIFF FLAG NO
[2025-09-19 07:39] LABS: Hematocrit 42.3 % (42.0-52.0); Hemoglobin 13.9 g/dl (14.0-18.0); Imm Gran Abs Auto 0.02 X10*3/uL (0.00-0.03); Imm Gran Pct Auto 0.4 % (0.0-0.4); Lymphocytes Absolute Auto 1.7 X10*3/uL (1.2-4.9); Mean Corpuscular HGB Conc 32.9 g/dl (31.0-36.0); Mean Corpuscular Hemoglobin 28.1 pg (27.0-33.0); Mean Corpuscular Volume 85.6 fL (80.0-98.0); NRBC Abs Auto 0.000 X10*3/uL (0.0-0.012); NRBC Pct Auto 0.0 /100WBC (0.0-0.2); Platelet Count 293 X10*3/uL (160-400); Red Blood Count 4.94 X10*6/uL (4.60-5.80); White Blood Count 4.8 X10*3/uL (4.8-10.8)
[2025-09-19 08:46] LABS: Alanine Aminotransferase 25 U/L (0-40); Albumin Level 4.4 g/dL (3.5-5.0); Alkaline Phosphatase 59 U/L (39-117); Anion Gap 13 (12-20); Aspartate Amino Transferase 36 U/L (5-37); Blood Urea Nitrogen 11 mg/dL (9-16); Calcium 9.0 mg/dL (8.4-10.2); Carbon Dioxide 26 mmol/L (22-29); Chloride 107 mmol/L (96-108); Cholesterol 157 mg/dL (<200); Estimated Glomerular Filt Rate > 60; HDL Cholesterol 46 mg/dL (>40); Potassium 4.1 mmol/L (3.3-5.1); Sodium 142 mmol/L (135-145); Total Protein 7.6 g/dL (6.5-8.0); Triglycerides 45 mg/dL (<150)
[2025-09-19 09:03] LABS: Folate 13.8 ng/mL (> or = 4.0); Vitamin B12 1083 pg/mL (200-900)
== END 2025-09-19 06:57 | disposition home or self-care (01) ==
LOC: HO.LAB 06:56
DX: Z00.00 Encounter for general adult medical examination without abnormal findings (principal); Z13.29 Encounter for screening for other suspected endocrine disorder; Z13.0 Encounter for screening for diseases of the blood and blood-forming organs and certain disorders involving the immune mechanism; J30.2 Other seasonal allergic rhinitis; K21.9 Gastro-esophageal reflux disease without esophagitis; Z13.21 Encounter for screening for nutritional disorder; Z13.220 Encounter for screening for lipoid disorders
CPT/HCPCS: 36415; 80053; 80061; 82306; 82607; 82746; 84443; 85025